=== PATIENT | male | born 1975 | race Caucasian/White ===

== ENCOUNTER 2017-07-24 10:24 | Emergency (ER) | payer MEDICAID ==
[~2017-07-24] VITALS: Ht 175.3 cm; Wt 106.6 kg
[~2017-07-24 10:24] MED LIST: ALBU8.5H2 INH; CALC625T14 PO; CIPR-225 PO; CYCL10TA9 PO; DICL75TA2 PO; DICY20TA33 PO; FAMO-119 PO; FLUO10CA29 PO; HYDR-3816 PO; HYDR12.56 PO; LISI1TAB10 PO; LORA0.5T PO; METH27TA8 PO; MONT10TA24 PO; NAPR-243 PO; OMEP20CA12 PO; OMG1KC PO; ONDN4T PO; PANT40TA PO; POLY17PO6 PO; Polyethylene Glycol PO; RT-ALBUINH IH; SCR1T1 PO; SUCR1TAB36 PO; Sucralfate PO; TRAM50TA2 PO
[2017-07-24] MEDS ORDERED: LACTATED RINGERS 1,000 ML IV ONE (10:57)
[2017-07-24] MEDS ORDERED: NS IV 1000 ML 1,000 ML IV ONE (10:57)
[2017-07-24] MEDS ORDERED: KETOROLAC 30 MG/ML VIAL IVP ONE (11:00)
[2017-07-24] MEDS ORDERED: FAMOTIDINE 20MG/2ML IV (PEPCID) IV STA (11:03)
--- NOTE | 2017-07-24 11:03 | ED Abdominal Pain ---
General Chief Complaint: Abdominal/GI Problems Stated Complaint: ABD PAIN,FATIGUE,WEAKNESS Source of Information: Patient, Family Exam Limitations: No Limitations (LOKESH GALVEZ) History of Present Illness Time Seen By Provider: 10:53 Initial Comments Patient has ER by private conveyance with chief complaint of 3 days progressively worsening epigastric abdominal pain that is diffuse be radiating. He has no shortness of breath or pain on inspiration nor cough above baseline. He doesn't history of pancreatitis but has not drank in several years. He's had a history of ulcers and had a scope approximate 5 years ago which showed ulcer disease. He had about limit today that was regular, formed without black tarry or bloody appearance. He has no nausea or vomiting. He does have a history of diabetes but is not on insulin. He is not on anything for hypercholesterolemia. He has lost about 100 pounds in the past year he says by taking better care of himself and also admits her past 5 months he has been living on the streets. For his pain he is been using Tylenol as well as hydrocodone which prescribed by his primary care physician which she says has done nothing for it. The patient states he is been on PPIs in the past after the ulcers but was taken off at a year ago by his primary care provider possible interactions with other medications. Patient denies history of abdominal surgeries. (LOKESH GALVEZ) Allergies and Home Medications Allergies Coded Allergies: No Known Drug Allergies (Unverified , 04/05/12) Home Medications Albuterol Sulfate 8.5 Gm Hfa.aer.ad, 2 PUFF IH Q6H PRN for SHORTNESS OF BREATH, (Reported) Calcium Polycarbophil 625 Mg Tablet, 625 MG PO HS, (Reported) Ciprofloxacin HCl 500 Mg Tablet, 500 MG PO BID, #14 Ref 0 Prescribed by: PEDRO SCRUGGS on 07/15/16 1111 Cyclobenzaprine HCl 10 Mg Tablet, 10 MG PO BID, (Reported) Diclofenac Sodium 75 Mg Tablet.dr, 75 MG PO BID, (Reported) Dicyclomine HCl 20 Mg Tablet, 20 MG PO QID PRN for PAIN, #15 Prescribed by: ARCHANA OLIVAREZ on 06/23/16 2122 Famotidine 20 Mg Tablet, 20 MG PO BID, #30 Ref 0 Prescribed by: TANK MASON on 07/24/17 1305 Fluoxetine HCl 10 Mg Capsule, 10 MG PO DAILY, (Reported) Hctz/Lisinopril 1 Tab Tablet, 1 TAB PO DAILY, (Reported) Hydrocodone/Acetaminophen 1 Each Tablet, 1 TAB PO Q6H PRN for PAIN, (Reported) Hyoscyamine Sulfate 0.125 Mg Tab.subl, 0.125 MG SL Q6H PRN for SPASMS, #14 Ref 0 Prescribed by: TANK MASON on 07/24/17 1305 Lorazepam 0.5 Mg Tablet, 0.5 MG PO HS, (Reported) Montelukast Sodium 10 Mg Tablet, 10 MG PO HS, (Reported) [place] 3 Polyunsat Fatty Acids 1,000 Mg Cap, 1,000 MG PO DAILY, (Reported) [place] 3 Polyunsat Fatty Acids 1,000 Mg Cap, 2,000 MG PO HS, (Reported) TAKES 2 (1,000MG) CAPSULES Ondansetron HCl 4 Mg Tab, 4 MG PO Q6H PRN for NAUSEA/VOMITING, #10 Ref 0 Prescribed by: PEDRO SCRUGGS on 07/15/16 1111 Pantoprazole Sodium 40 Mg Tablet.dr, 40 MG PO DAILY, (Reported) Polyethylene Glycol 3350 17 Gm Powd.pack, 17 GM PO DAILY PRN for CONSTIPATION, ( Reported) Sucralfate 1 Gm Tablet, 1 GM PO BID, (Reported) Review of Systems Constitutional: No chills, No diaphoresis EENTM: No Blurred Vision, No Double Vision Respiratory: Denies Cough, Denies Orthopnea Cardiovascular: Denies Chest Pain, Denies Syncope Gastrointestinal: See HPI, Denies Abdomen Distended, Abdominal Pain, Denies Constipated, Denies Diarrhea, Denies Nausea, Denies Poor Appetite, Denies Poor Fluid Intake, Denies Vomiting Genitourinary: Denies Burning, Denies Discharge Musculoskeletal: No back pain, No joint pain Skin: No pruritus, No rash Psychiatric/Neurological: Denies Headache, Denies Numbness, Denies Paresthesia (LOKESH GALVEZ) Past Ggnjfah-Fgkmyl-Azdfdu Hx Patient Social History Alcohol Use: Past History Recreational Drug Use: No Smoking Status: Current Everyday Smoker Type Used: Cigarettes (0.5 ppd) Recent Foreign Travel: No Contact w/Someone Who Travel: No Recent Hopitalizations: No (LOKESH GALVEZ) Immunizations Up To Date Tetanus Booster (TDap): Less than 5yrs PED Vaccines UTD: Yes Date of Pneumonia Vaccine: Jul 05, 2011 Date of Influenza Vaccine: Jun 04, 2011 (LOKESH GALVEZ) Seasonal Allergies Seasonal Allergies: Yes (LOKESH GALVEZ) Respiratory Respiratory Disorders: Asthma, COPD (LOKESH GALVEZ) Cardiovascular Cardiac Disorders: Hypertension (LOKESH GALVEZ) Reproductive System Hx Reproductive Disorders: No Sexually Transmitted Disease: No HIV/AIDS: No (LOKESH GALVEZ) Gastrointestinal Gastrointestinal Disorders: Gastroesophageal Reflux, Pancreatitis (LOKESH GALVEZ) HEENT Loss of Vision: Denies Hearing Impairment: Denies (LOKESH GALVEZ) Psychosocial Behavioral Health Disorders: Anxiety, Depression (LOKESH GALVEZ) Blood Transfusions Adverse Reaction to a Blood Tr: No (LOKESH GALVEZ) Family Medical History Significant Family History: No Pertinent Family Hx Family Medial History: Alzheimer's disease Arthritis Asthma Cataracts Completed stroke Coronary thrombosis Diabetes mellitus Drug abuse Headache disorder Hypertension Myocardial infarction Seizure disorder Severe allergy No Family History of: AIDS Abdominal aortic aneurysm Alejandro's disease Alcoholism Aphasia Cancer of mouth Cardiovascular disease Colon cancer Congenital disease Congenital heart disease Cystic fibrosis Deafness or hearing loss Dementia Dysphasia Fibrocystic disease of breast Gastroenteritis Glaucoma Hypercholesterolemia Infertility Kidney disease Neoplasm Not obtainable due to adoption Osteoporosis Parkinson's disease Prostate cancer Psychosocial problem Respiratory disorder Thyroid disease Tuberculosis Visual disorder (LOKESH GALVEZ) Family Medial History: Alzheimer's disease Arthritis Asthma Cataracts Completed stroke Coronary thrombosis Diabetes mellitus Drug abuse Headache disorder Hypertension Myocardial infarction Seizure disorder Severe allergy No Family History of: AIDS Abdominal aortic aneurysm [place]'s disease Alcoholism Aphasia Cancer of mouth Cardiovascular disease Colon cancer Congenital disease Congenital heart disease Cystic fibrosis Deafness or hearing loss Dementia Dysphasia Fibrocystic disease of breast Gastroenteritis Glaucoma Hypercholesterolemia Infertility Kidney disease Neoplasm Not obtainable due to adoption Osteoporosis Parkinson's disease Prostate cancer Psychosocial problem Respiratory disorder Thyroid disease Tuberculosis Visual disorder (TANK MASON) Physical Exam Vital Signs VS - Last 72 Hours, by Label 07/24/17 07/24/17 10:55 11:42 Temp 97.5 97.5 Pulse 94 Resp 18 B/P (MAP) 125/93 Pulse Ox 98 O2 Delivery Room Air (TANK MASON) Vital Signs Capillary Refill : (LOKESH GALVEZ) General Appearance: WD/WN, mild distress HEENT: PERRL/EOMI, normal ENT inspection, pharynx normal Neck: non-tender, supple, normal inspection Respiratory: chest non-tender, lungs clear, normal breath sounds Cardiovascular: normal peripheral pulses, regular rate, rhythm, no edema Peripheral Pulses: 2+ Radial Pulses (R), 2+ Radial Pulses (L) Gastrointestinal: normal bowel sounds, soft, guarding (epigastric and left upper quadrant.), tenderness (especially epigastric and left upper quadrant but diffusely throughout except for right lower quadrant.) Extremities: no pedal edema, no calf tenderness, normal capillary refill Neurologic/Psychiatric: alert, oriented x 3 Skin: normal color, warm/dry (LOKESH GALVEZ) Progress/Results/Core Measures Results/Orders Lab Results Laboratory Tests Test 07/24/17 11:15 07/24/17 12:38 Range/Units White Blood Count 15.8 H 4.3-11.0 10^3/uL Red Blood Count 6.03 H 4.35-5.85 10^6/uL Hemoglobin 17.3 13.3-17.7 G/DL Hematocrit 51 40-54 % Mean Corpuscular Volume 85 80-99 FL Mean Corpuscular Hemoglobin 29 25-34 PG Mean Corpuscular Hemoglobin Concent 34 32-36 G/DL Red Cell Distribution Width 13.6 10.0-14.5 % Platelet Count 418 H 130-400 10^3/uL Mean Platelet Volume 9.9 7.4-10.4 FL Neutrophils (%) (Auto) 69 42-75 % Lymphocytes (%) (Auto) 23 12-44 % Monocytes (%) (Auto) 7 0-12 % Eosinophils (%) (Auto) 1 0-10 % Basophils (%) (Auto) 0 0-10 % Neutrophils # (Auto) 10.9 H 1.8-7.8 X 10^3 Lymphocytes # (Auto) 3.6 1.0-4.0 X 10^3 Monocytes # (Auto) 1.1 H 0.0-1.0 X 10^3 Eosinophils # (Auto) 0.2 0.0-0.3 10^3/uL Basophils # (Auto) 0.0 0.0-0.1 10^3/uL Neutrophils % (Manual) 70 % Lymphocytes % (Manual) 12 % Monocytes % (Manual) 10 % Eosinophils % (Manual) 1 % Basophils % (Manual) 1 % Reactive Lymphocytes 6 % Blood Morphology Comment NORMAL Sodium Level 137 135-145 MMOL/L Potassium Level 3.9 3.6-5.0 MMOL/L Chloride Level 98 98-107 MMOL/L Carbon Dioxide Level 26 21-32 MMOL/L Anion Gap 13 5-14 MMOL/L Blood Urea Nitrogen 16 7-18 MG/DL Creatinine 0.91 0.60-1.30 MG/DL Estimat Glomerular Filtration Rate > 60 BUN/Creatinine Ratio 18 Glucose Level 106 H 70-105 MG/DL Calcium Level 9.9 8.5-10.1 MG/DL Magnesium Level 1.7 L 1.8-2.4 MG/DL Total Bilirubin 0.4 0.1-1.0 MG/DL Aspartate Amino Transf (AST/SGOT) 20 5-34 U/L Alanine Aminotransferase (ALT/SGPT) 29 0-55 U/L Alkaline Phosphatase 74 40-136 U/L Total Protein 7.9 6.4-8.2 GM/DL Albumin 4.2 3.2-4.5 GM/DL Lipase 16 8-78 U/L Urine Color YELLOW Urine Clarity CLEAR Urine pH 6 5-9 Urine Specific [place] 1.010 L 1.016-1.022 Urine Protein NEGATIVE NEGATIVE Urine Glucose (UA) NEGATIVE NEGATIVE Urine Ketones NEGATIVE NEGATIVE Urine Nitrite NEGATIVE NEGATIVE Urine Bilirubin NEGATIVE NEGATIVE Urine Urobilinogen NORMAL NORMAL MG/DL Urine Leukocyte Esterase NEGATIVE NEGATIVE Urine RBC (Auto) 2+ H NEGATIVE Urine RBC NONE /HPF Urine WBC NONE /HPF Urine Squamous Epithelial Cells RARE /HPF Urine Crystals NONE /LPF Urine Bacteria NEGATIVE /HPF Urine Casts NONE /LPF Urine Mucus SMALL H /LPF Urine Culture Indicated NO Urine Opiates Screen NEGATIVE NEGATIVE Urine Oxycodone Screen NEGATIVE NEGATIVE Urine Methadone Screen NEGATIVE NEGATIVE Urine Propoxyphene Screen NEGATIVE NEGATIVE Urine Barbiturates Screen NEGATIVE NEGATIVE Ur Tricyclic Antidepressants Screen NEGATIVE NEGATIVE Urine Phencyclidine Screen NEGATIVE NEGATIVE Urine Amphetamines Screen NEGATIVE NEGATIVE Urine Methamphetamines Screen NEGATIVE NEGATIVE Urine Benzodiazepines Screen POSITIVE H NEGATIVE Urine Cocaine Screen NEGATIVE NEGATIVE Urine Cannabinoids Screen POSITIVE H NEGATIVE (TANK MASON) Medications Given in ED Current Medications Medications Dose Ordered Sig/Tyler Route Start Time Stop Time Status Last Admin Dose Admin Al Hydrox/Mg Hydrox/Simethicone 30 ml ONCE ONCE PO 07/24/17 11:15 07/24/17 11:16 DC 07/24/17 11:42 30 ML Iohexol 100 ml ONCE ONCE IV 07/24/17 11:15 07/24/17 11:16 DC 07/24/17 11:27 100 ML Ketorolac Tromethamine 15 mg ONCE ONCE IVP 07/24/17 11:00 07/24/17 11:01 DC 07/24/17 11:42 15 MG Lactated Ringer's 1,000 ml @ 0 mls/hr Q0M ONCE IV 07/24/17 10:57 07/24/17 11:01 DC 07/24/17 12:49 0 MLS/HR Lidocaine HCl 15 ml ONCE ONCE PO 07/24/17 11:15 07/24/17 11:16 DC 07/24/17 11:42 15 ML Magnesium Sulfate/ Dextrose 100 ml @ 100 mls/hr ONCE ONCE IV 07/24/17 11:45 07/24/17 12:44 DC 07/24/17 12:50 100 MLS/HR Sodium Chloride 100 ml ONCE ONCE IV 07/24/17 11:15 07/24/17 11:16 DC 07/24/17 11:27 80 ML Sodium Chloride 1,000 ml @ 0 mls/hr Q0M ONCE IV 07/24/17 10:57 07/24/17 11:01 DC 07/24/17 11:42 1,000 MLS/HR (TANK MASON) Vital Signs/I&O Vital Sign - Last 12Hours 07/24/17 07/24/17 10:55 11:42 Temp 97.5 97.5 Pulse 94 Resp 18 B/P (MAP) 125/93 Pulse Ox 98 O2 Delivery Room Air (TANK MASON) Diagnostic Imaging Diagonstic Imaging: CT (with contrast) Plain Films/CT/US/NM/MRI: abdomen, pelvis Reviewed: Reviewed by Me (LOKESH GALVEZ) Diagonstic Imaging: CT (with contrast) Plain Films/CT/US/NM/MRI: abdomen, pelvis Comments FINDINGS: The lung bases appear clear. The liver demonstrate diffuse hepatic steatosis. The gallbladder has no calcified stones. The spleen, the adrenal glands and the pancreas appear unremarkable. Kidneys demonstrate focal hypodensities less than a centimeter in size, too small to accurately characterize. No hydronephrosis. The abdominal aorta is normal in caliber. No para-aortic significantly enlarged lymph node is seen. There is no bowel obstruction. The appendix is not identified. There is a small amount of fat distending the left inguinal canal suggestive of a small indirect inguinal hernia. There is also a tiny fat-containing umbilical hernia. No significant free fluid or fluid collection in the abdomen or pelvis is seen. The osseous structures demonstrate mild degenerative change. IMPRESSION: 1. There are small fat-containing left inguinal and tiny umbilical hernias. 2. Hepatic steatosis. Dictated by: Dictated on workstation # [id number] Reviewed: Reviewed by Me (radiology report reviewed by me) (TANK MASON) Departure Impression Impression: Primary Impression: Abdominal pain Qualified Codes: R10.13 - Epigastric pain Additional Impression: Volume depletion Disposition: HOME, SELF-CARE Condition: Improved Departure-Patient Inst. Decision time for Depature: 13:01 (TANK MASON) Referrals: [facility] [place]) Primary Care Physician PEDRO GARCIA (Family) Primary Care Physician Patient Instructions: Acute Abdomen (Belly Pain), Adult (DC), Dehydration, Adult (DC) Add. Discharge Instructions: All discharge instructions reviewed with patient and/or family. Voiced understanding. Medications as instructed. Continue usual home medications. Clear liquid diet until symptoms improve, then increase diet slowly to a low-fat , bland diet. Avoid spicy foods, fatty foods, carbonated beverages, caffeinated beverages, NSAIDs, aspirin, smoking, secondhand smoke, alcohol, or marijuana use. Do not eat within 2 hours of lying down. Follow-up with [facility] within the next 1-2 days for recheck. Call [facility] today for appointment time. Return to the emergency department for worsened pain, vomiting, vomiting blood, black stools, rectal bleeding, abdominal swelling, fever, or any other concerns. Scripts Hyoscyamine Sulfate (Hyoscyamine Sulfate) 0.125 Mg Tab.subl 0.125 MG SL Q6H Y for SPASMS, #14 TAB 0 Refills Prov: TANK MASON 07/24/17 Famotidine (Pepcid) 20 Mg Tablet 20 MG PO BID, #30 TAB 0 Refills Prov: TANK MASON 07/24/17 Copy Copies To 1: JUANITA BOURGEOIS TITUS J Jul 24, 2017:03 TANK MASON Jul 24, 2017 13:05
[2017-07-24] MEDS ORDERED: ANTACID SUSP 30 ML UDC (MYLANTA) PO ONE (11:15)
[2017-07-24] MEDS ORDERED: LIDOCAINE 2% VISCOUS 15 ML UDC PO ONE (11:15)
[2017-07-24] MEDS ORDERED: NS 100 ML (IVPB) BAG IV ONE (11:15)
[2017-07-24] MEDS ORDERED: IOHEXOL 350 MG/ML 100 ML (OMNIPAQUE 350) VIAL IV ONE (11:15)
[2017-07-24 11:21] LABS: BASOPHILS % (AUTO) 0 % (0-10); EOSINOPHILS # (AUTO) 0.2 10^3/uL (0.0-0.3); EOSINOPHILS % (AUTO) 1 % (0-10); LYMPHOCYTES # (AUTO) 3.6 X 10^3 (1.0-4.0); LYMPHOCYTES % (AUTO) 23 % (12-44); MEAN CORPUSCULAR HEMOGLOBIN 29 PG (25-34); MEAN CORPUSCULAR HGB CONC 34 G/DL (32-36); MEAN CORPUSCULAR VOLUME 85 FL (80-99); MEAN PLATELET VOLUME 9.9 FL (7.4-10.4); MONOCYTES # (AUTO) 1.1 X 10^3 (0.0-1.0); MONOCYTES % (AUTO) 7 % (0-12); NEUTROPHILS # (AUTO) 10.9 X 10^3 (1.8-7.8); NEUTROPHILS % (AUTO) 69 % (42-75); PLATELET COUNT 418 10^3/uL (130-400); RED BLOOD COUNT 6.03 10^6/uL (4.35-5.85); RED CELL DISTRIBUTION WIDTH 13.6 % (10.0-14.5); WHITE BLOOD COUNT 15.8 10^3/uL (4.3-11.0)
[2017-07-24 11:42] LABS: ALANINE AMINOTRANSFERASE 29 U/L (0-55); ALBUMIN 4.2 GM/DL (3.2-4.5); ANION GAP 13 MMOL/L (5-14); ASPARTATE AMINO TRANSFERASE 20 U/L (5-34); BILIRUBIN,TOTAL 0.4 MG/DL (0.1-1.0); BLOOD UREA NITROGEN 16 MG/DL (7-18); BUN/CREATININE RATIO 18; CALCIUM 9.9 MG/DL (8.5-10.1); CARBON DIOXIDE 26 MMOL/L (21-32); CHLORIDE 98 MMOL/L (98-107); CREATININE SERUM 0.91 MG/DL (0.60-1.30); GFR ESTIMATED > 60; GLUCOSE 106 MG/DL (70-105); LIPASE 16 U/L (8-78); MAGNESIUM 1.7 MG/DL (1.8-2.4); POTASSIUM 3.9 MMOL/L (3.6-5.0); SODIUM 137 MMOL/L (135-145); TOTAL PROTEIN 7.9 GM/DL (6.4-8.2)
[2017-07-24] MEDS ORDERED: MAGNESIUM 1 GM/100 ML IVPB 100 ML IV ONE (11:45)
[2017-07-24 11:49] LABS: BASOPHILS % (MANUAL) 1 %; EOSINOPHILS % (MANUAL) 1 %; LYMPHOCYTES % (MANUAL) 12 %; NEUTROPHILS % (MANUAL) 70 %; REACTIVE LYMPHOCYTES 6 %
--- OUTSIDE RECORDS SUMMARY | 2017-07-24 12:09 | XMS REPORT ---
Author Author PEDRO GARCIA Organization [facility] Address [address] [place] [address] Care Team Providers Care Software Engineer Web Services Name Role Phone PEDRO GARCIA Unavailable PROBLEMS Type Condition ICD9-CM Code [id number] Code Onset Dates Condition Status SNOMED Code Problem Unspecified episodic mood disorder 296.90 Active 533409748 Problem Family history of diabetes mellitus V18.0 Active 082366318 Problem Pain in joint, lower leg 719.46 Active 219235479 Problem Type 2 diabetes mellitus with diabetic polyneuropathy E11.42 Active 12663845 Problem Type 2 diabetes mellitus with hyperglycemia E11.65 Active 665923884225057 Problem Family history of other cardiovascular diseases V17.49 Active 552263148 Problem Unspecified gastritis and gastroduodenitis without mention of hemorrhage 535.50 Active 145045154 Problem Asthma, unspecified, unspecified status 493.90 Active 13682245 Problem Lumbago 724.2 Active 235220793 Problem Other seborrheic keratosis 702.19 Active 160067047 Problem Essential hypertension, benign 401.1 Active 4748588 Assessment Type 2 diabetes mellitus with hyperglycemia E11.65 May, Active 750808279474105 Problem Hematuria, unspecified 599.70 Active 45716184 Problem Other and unspecified bipolar disorders 296.89 Active 47477701 Problem Abdominal pain, generalized 789.07 Active 946380393 ALLERGIES Unknown Allergies SOCIAL HISTORY No smoking Hx information available PLAN OF CARE VITAL SIGNS MEDICATIONS Medication Instructions Dosage Frequency Start Date End Date Duration Status True Metrix Meter glucometer test blood sugar 12h May, Active True Metrix Blood Glucose Test - In Vitro 2 times a day as directed 12h May, Active RESULTS No Results PROCEDURES No Known procedures IMMUNIZATIONS No Known Immunizations
--- OUTSIDE RECORDS SUMMARY | 2017-07-24 12:09 | XMS REPORT ---
Author Author PEDRO GARCIA Organization [facility] Address [address] [place] [address] Care Team Providers Care Lastex Operator Name Role Phone PEDRO GARCIA Unavailable PROBLEMS Type Condition ICD9-CM Code [id number] Code Onset Dates Condition Status SNOMED Code Problem Mood disorder F39 Active 35826667 Problem Anxiety disorder, unspecified F41.9 Active 996709118 Problem Other chronic pain G89.29 Active 46473617 Problem Type 2 diabetes mellitus with hyperglycemia E11.65 Active 061972576018994 Problem Type 2 diabetes mellitus with diabetic polyneuropathy E11.42 Active 18003266 Problem Uncontrolled type 2 diabetes mellitus without complication, without long-term current use of insulin E11.65 Active 466366160 Problem Diabetic polyneuropathy associated with type 2 diabetes mellitus E11.42 Active 45250945 Problem 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 Active 590027579 Problem Chronic obstructive pulmonary disease, unspecified COPD type J44.9 Active 43017953 Problem Anxiety F41.9 Active 95205739 Problem Social phobia F40.10 Active 08138444 Problem Major depression, melancholic type F32.9 Active 826728540 ALLERGIES No Known Allergies SOCIAL HISTORY Never Assessed PLAN OF CARE VITAL SIGNS Height 72 in 2016-11-18 Weight 307.7 lbs 2016-11-18 Temperature 97.2 degrees Fahrenheit 2016-11-18 Heart Rate 94 bpm 2016-11-18 Respiratory Rate 20 2016-11-18 BMI 41.73 kg/m2 2016-11-18 Blood pressure systolic 138 mmHg 2016-11-18 Blood pressure diastolic 82 mmHg 2016-11-18 MEDICATIONS Medication Instructions Dosage Frequency Start Date End Date Duration Status True Metrix Meter glucometer test blood sugar 12h 15 May, 2016 Active Diclofenac Sodium 75 MG Orally Twice a day 1 tablet 12h 90 Active Prozac 40 MG Orally Once a day 1 capsule 24h 30 Active Metformin HCl 1000 MG Orally Twice a day 1 tablet with meals 12h 23 Feb, 2016 90 days Active HydrOXYzine HCl 25 MG Orally every 8 hrs 1 tablet as needed 8h 26 Sep, 2016 30 day(s) Active Albuterol Sulfate 90 mcg/actuation inhale 2 puffs 6h Jun, Active Neurontin 800 MG Orally Three times a day 1 capsule 8h 90 Active Voca 7.5-325 MG Orally 3 times a day 1 tablet as needed 8h 08 Nov, 2016 Active Singulair 10 mg Orally Once a day 1 tablet at bedtime 24h 90 Active Protonix 40 mg Orally Once a day 1 tablet 24h 90 Active Promethazine HCl 25 MG Orally 3 times a day PRN 1 tablet as needed 10 Active Cyclobenzaprine HCl 10 mg Orally 2 times a day 1 tablet 12h 30 Active True Metrix Blood Glucose Test - In Vitro 2 times a day test blood sugar 12h May, 90 days Active Zofran 8 MG Orally 3 times a day 1 tablet 8h 17 Nov, 2016 Active Accu-Chek Susan 1 In Vitro 2 times a day test blood sugar 12h Mar, Active Xanax 1 MG Orally 2 times a day 1 tablet 12h 15 Apr, 2016 28 days Active Lisinopril-Hydrochlorothiazide 20-25 MG 1 tablet 24h 90 Active GlipiZIDE 5 mg Orally 2 times a day 1 tablet 12h 30 Active RESULTS No Results PROCEDURES No Known procedures IMMUNIZATIONS No Known Immunizations MEDICAL (GENERAL) HISTORY Type Description Date Medical History hypertension Medical History asthma Medical History depression and mood disorder Medical History chronic back pain Surgical History angiogram(heart cath) 01/2016 Hospitalization History pancreatitis 2013 Hospitalization History ER visit for abdominal crampintg 08/2015
--- OUTSIDE RECORDS SUMMARY | 2017-07-24 12:09 | XMS REPORT ---
Author PEDRO Zarco [facility] eClinical[employer] Address Unknown Phone Unavailable Care Team Providers Care Earth Burner Name Role Phone PEDRO GARCIA CP Unavailable Allergies, Adverse Reactions, Alerts Substance Reaction Event Type N.K.D.A. Info Not Available Non Drug Allergy Problems Problem Type Condition Code Onset Dates Condition Status Problem Abdominal pain, generalized 789.07 Active Problem Pain in joint, lower leg 719.46 Active Problem Unspecified episodic mood disorder 296.90 Active Problem Type 2 diabetes mellitus with hyperglycemia E11.65 Active Problem Asthma, unspecified, unspecified status 493.90 Active Problem Type 2 diabetes mellitus with diabetic polyneuropathy E11.42 Active Problem Unspecified gastritis and gastroduodenitis without mention of hemorrhage 535.50 Active Problem Family history of diabetes mellitus V18.0 Active Problem Lumbago 724.2 Active Problem Family history of other cardiovascular diseases V17.49 Active Problem Other and unspecified bipolar disorders 296.89 Active Problem Other seborrheic keratosis 702.19 Active Problem Essential hypertension, benign 401.1 Active Assessment Seizures R56.9 Active Problem Hematuria, unspecified 599.70 Active Medications Medication Code System Code Instructions Start Date End Date Status Dosage Neurontin [facility] [address]-56 800 MG Orally Three times a day 1 capsule Albuterol Sulfate [facility] [address]-47 90 mcg/actuation every 6 hrs Jun 04, 2014 inhale 2 puffs Diclofenac Sodium [facility] 01203750522 75 MG Orally Twice a day 1 tablet Accu-Chek Susan NDC 0 1 In Vitro 2 times a day March 24, 2016 test blood sugar [place] [facility] [address]-52 7.5-325 MG Orally 3 times a day November 28, 2014 1 tablet as needed Xanax [facility] [address]-77 1 MG Orally 2 times a day Apr 18, 2016 1 tablet True Metrix Meter NDC 0 glucometer 2 times a day May 19, 2016 test blood sugar Protonix [facility] [address]-87 40 mg Orally Once a day 1 tablet Promethazine HCl [facility] 18190012624 25 MG Orally 3 times a day PRN 1 tablet as needed Metformin HCl [facility] [address]-96 1000 MG Orally Twice a day February 25, 2016 1 tablet with meals Singulair [facility] [address]-37 10 mg Orally Once a day 1 tablet at bedtime MiraLax [facility] [address]-84 17 gm/dose Orally Once a day Aug 19, 2015 1 capful mixed with 8 ounces of fluid Lisinopril-Hydrochlorothiazide [facility] 66854442090 20-25 MG Once a day 1 tablet True Metrix Blood Glucose Test [facility] 8528-789191 - In Vitro 2 times a day May 19, 2016 as directed Cyclobenzaprine HCl [facility] [address]-51 10 mg Orally 2 times a day 1 tablet Prozac [facility] [address]-88 20 MG Orally Once a day 1 capsule Procedures Procedure Coding System Code Date Office Visit, Est Pt., Level 3 CPT-4 50956 Jun 03, 2016 Vital Signs Date/Time: Jun 03, 2016 Cardiac Monitoring Heart Rate 100 bpm Weight 319.3 lbs Height 72 in BMI 43.30 Index Blood Pressure Diastolic 78 mmHg Blood Pressure Systolic 120 mmHg Results No Known Results Summary Purpose eClinicalWorks Submission
--- OUTSIDE RECORDS SUMMARY | 2017-07-24 12:09 | XMS REPORT ---
Author Author JOHN CROCKER Organization [facility] Address [address] [place] [address] Care Team Providers Care General Manager Land Department Name Role Phone SELVIN CROCKERNETTE Unavailable PROBLEMS Type Condition ICD9-CM Code AYN15-MG Code Onset Dates Condition Status SNOMED Code Problem Mood disorder F39 Active 59643605 Problem Anxiety disorder, unspecified F41.9 Active 116176169 Problem Other chronic pain G89.29 Active 99904457 Problem Type 2 diabetes mellitus with hyperglycemia E11.65 Active 940153433585276 Problem Type 2 diabetes mellitus with diabetic polyneuropathy E11.42 Active 94368719 Problem Uncontrolled type 2 diabetes mellitus without complication, without long-term current use of insulin E11.65 Active 920080058 Problem Diabetic polyneuropathy associated with type 2 diabetes mellitus E11.42 Active 84833959 Problem 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 Active 966052143 Problem Chronic obstructive pulmonary disease, unspecified COPD type J44.9 Active 64797830 Problem Anxiety F41.9 Active 78738684 Problem Social phobia F40.10 Active 10250788 Problem Major depression, melancholic type F32.9 Active 830368465 ALLERGIES No Information SOCIAL HISTORY Never Assessed PLAN OF CARE VITAL SIGNS MEDICATIONS Medication Instructions Dosage Frequency Start Date End Date Duration Status [place] 7.5-325 MG Orally 3 times a day 1 tablet as needed 8h January, 28 days Active RESULTS No Results PROCEDURES No Known procedures IMMUNIZATIONS No Known Immunizations MEDICAL (GENERAL) HISTORY Type Description Date Medical History hypertension Medical History asthma Medical History depression and mood disorder Medical History chronic back pain Surgical History angiogram(heart cath) 01/2016 Hospitalization History pancreatitis 2013 Hospitalization History ER visit for abdominal crampintg 08/2015
--- OUTSIDE RECORDS SUMMARY | 2017-07-24 12:09 | XMS REPORT ---
Author Author PEDRO GARCIA [facility] eClinical[employer] Address Unknown Phone Unavailable Care Team Providers Care Sales Route Driver Name Role Phone PEDRO GARCIA CP Unavailable Allergies No Known Allergies Problems Problem Type Condition Code Onset Dates Condition Status Problem Essential hypertension, benign 401.1 Active Problem Abdominal pain, generalized 789.07 Active Problem Hematuria, unspecified 599.70 Active Problem Other and unspecified bipolar disorders 296.89 Active Problem Other seborrheic keratosis 702.19 Active Problem Lumbago 724.2 Active Problem Family history of other cardiovascular diseases V17.49 Active Problem Asthma, unspecified, unspecified status 493.90 Active Problem Pain in joint, lower leg 719.46 Active Problem Unspecified episodic mood disorder 296.90 Active Problem Unspecified gastritis and gastroduodenitis without mention of hemorrhage 535.50 Active Problem Family history of diabetes mellitus V18.0 Active Medications Medication Code System Code Instructions Start Date End Date Status Dosage [facility] [address]-01 7.5-325 MG Orally November 28, 2014 take 1 tablet by Oral route 2 times per day as needed for pain prn Results No Known Results Summary Purpose eClinicalWorks Submission
--- OUTSIDE RECORDS SUMMARY | 2017-07-24 12:10 | XMS REPORT ---
Author Author PEDRO GARCIA Organization [facility] Address [address] [place] [address] Care Team Providers Care Senior Analysis Specialist Name Role Phone RADHAPEDRO Unavailable PROBLEMS Type Condition ICD9-CM Code XGF97-OL Code Onset Dates Condition Status SNOMED Code Problem Mood disorder F39 Active 58275277 Problem Anxiety disorder, unspecified F41.9 Active 639502384 Problem Other chronic pain G89.29 Active 85546329 Problem Type 2 diabetes mellitus with hyperglycemia E11.65 Active 117686898869363 Problem Type 2 diabetes mellitus with diabetic polyneuropathy E11.42 Active 97155720 Problem Uncontrolled type 2 diabetes mellitus without complication, without long-term current use of insulin E11.65 Active 555856357 Problem Diabetic polyneuropathy associated with type 2 diabetes mellitus E11.42 Active 51180184 Problem 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 Active 565408334 Problem Chronic obstructive pulmonary disease, unspecified COPD type J44.9 Active 15505074 Problem Anxiety F41.9 Active 63548354 Problem Social phobia F40.10 Active 57425568 Problem Major depression, melancholic type F32.9 Active 932913958 ALLERGIES No Information SOCIAL HISTORY Never Assessed PLAN OF CARE VITAL SIGNS MEDICATIONS Medication Instructions Dosage Frequency Start Date End Date Duration Status True Metrix Blood Glucose Test - In Vitro 2 times a day as directed 12 15 May, 2016 90 days Active RESULTS No Results PROCEDURES No Known procedures IMMUNIZATIONS No Known Immunizations MEDICAL (GENERAL) HISTORY Type Description Date Medical History hypertension Medical History asthma Medical History depression and mood disorder Medical History chronic back pain Surgical History angiogram(heart cath) 01/2016 Hospitalization History pancreatitis 2013 Hospitalization History ER visit for abdominal crampintg 08/2015
--- OUTSIDE RECORDS SUMMARY | 2017-07-24 12:10 | XMS REPORT ---
Author Author PEDRO GARCIA Organization [employer] Address Unknown Phone Unavailable Care Team Providers Care Cra Officer Name Role Phone PEDRO GARCIA CP Unavailable Allergies No Known Allergies Problems Problem Type Condition ICD-9 Code Onset Dates Condition Status Problem Essential hypertension, benign 401.1 Active Problem Abdominal pain, generalized 789.07 Active Problem Hematuria, unspecified 599.70 Active Problem Lumbago 724.2 Active Problem Family history of other cardiovascular diseases V17.49 Active Problem Asthma, unspecified, unspecified status 493.90 Active Problem Pain in joint, lower leg 719.46 Active Problem Unspecified episodic mood disorder 296.90 Active Problem Unspecified gastritis and gastroduodenitis without mention of hemorrhage 535.50 Active Problem Family history of diabetes mellitus V18.0 Active Assessment Anxiety 300.00 Active Problem Other and unspecified bipolar disorders 296.89 Active Problem Other seborrheic keratosis 702.19 Active Medications Medication Code System Code Instructions Start Date End Date Status Dosage Lorazepam [facility] [address]-16 0.5 MG Orally Once a day Apr 08, 2015 1 tablet as needed Results No Known Results Summary Purpose eClinicalWorks Submission
--- OUTSIDE RECORDS SUMMARY | 2017-07-24 12:10 | XMS REPORT ---
Author Author PEDRO GARCIA [facility] eClinicalWorks Address Unknown Phone Unavailable Care Team Providers Care Medical Equipment Sales Name Role Phone PEDRO GARCIA CP Unavailable [...] Instructions Start Date End Date Status Dosage [facility] [address]-68 7.5-325 MG Orally November 28, 2014 take 1 tablet by Oral route 2 times per day as needed for pain prn Results No Known Results Summary Purpose eClinicalWorks Submission
--- OUTSIDE RECORDS SUMMARY | 2017-07-24 12:10 | XMS REPORT ---
Author Author PEDRO GARCIA Organization [facility] Address [address] [place] [address] Care Team Providers Care Test Engineering Manager Name Role Phone PEDRO GARCIA Unavailable PROBLEMS Type Condition ICD9-CM Code XDV63-WE Code Onset Dates Condition Status SNOMED Code Problem Mood disorder F39 Active 46466822 Problem Anxiety disorder, unspecified F41.9 Active 664340335 Problem Other chronic pain G89.29 Active 84931656 Problem Type 2 diabetes mellitus with hyperglycemia E11.65 Active 797850147778191 Problem Type 2 diabetes mellitus with diabetic polyneuropathy E11.42 Active 39252544 Problem Uncontrolled type 2 diabetes mellitus without complication, without long-term current use of insulin E11.65 Active 428679808 Problem Diabetic polyneuropathy associated with type 2 diabetes mellitus E11.42 Active 72114604 Problem 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
--- OUTSIDE RECORDS SUMMARY | 2017-07-24 12:10 | XMS REPORT ---
Author Author PEDRO GARCIA Organization [employer] Address Unknown Phone Unavailable Care Team Providers Care Party Plan Demonstrator Name Role Phone PEDRO GARCIA CP Unavailable [...] history of diabetes mellitus V18.0 Active Medications No Known Medications Results No Known Results Summary Purpose eClinicalWorks Submission
--- OUTSIDE RECORDS SUMMARY | 2017-07-24 12:10 | XMS REPORT ---
Author PEDRO Zarco [facility] eClinicalWorks Address Unknown Phone Unavailable Care Team Providers Care Records Supervisor Name Role Phone PEDRO GARCIA CP Unavailable [...] Active Problem Other seborrheic keratosis 702.19 Active Assessment Type 2 diabetes mellitus with hyperglycemia E11.65 Active Problem Essential hypertension, benign 401.1 Active Assessment Type 2 diabetes mellitus with diabetic polyneuropathy E11.42 Active Problem Hematuria, unspecified 599.70 Active Medications Medication Code System Code Instructions Start Date End Date Status Dosage Prozac [facility] [address]-72 10 mg Orally Once a day 1 capsule Albuterol Sulfate [facility] [address]-18 90 mcg/actuation every 6 hrs Jun 04, 2014 inhale 2 puffs Promethazine HCl [facility] 99493930449 25 MG Orally 3 times a day PRN 1 tablet as needed Breo Ellipta [facility] [address]-13 100-25 MCG/INH Inhalation Once a day March 1 puff Lorazepam [facility] [address]-06 0.5 MG Orally Once a day Apr 08, 2015 1 tablet as needed Lisinopril-Hydrochlorothiazide [facility] 31598733500 20-25 MG Once a day 1 tablet Protonix [facility] [address]-90 40 mg Orally Once a day 1 tablet Diclofenac Sodium [facility] 34193714860 75 MG Orally Twice a day 1 tablet Neurontin [facility] [address]-34 100 MG Orally Three times a day March 04, 2016 1 capsule Sucralfate [facility] 00729378333 1 GM TAKE ONE TABELT BY MOUTH BEFORE MEALS AND AT BEDTIME MiraLax [facility] [address]-40 17 gm/dose Orally Once a day Aug 19, 2015 1 capful mixed with 8 ounces of fluid Zofran [facility] [address]-18 8 MG Orally Once a day 1 tablet [place] [facility] [address]-35 7.5-325 MG Orally 3 times a day November 28, 2014 1 tablet as needed Singulair [facility] [address]-15 10 mg Orally Once a day 1 tablet at bedtime Cyclobenzaprine HCl [facility] [address]-14 10 mg Orally 2 times a day 1 tablet Metformin HCl [facility] [address]-71 1000 MG Orally Twice a day February 25, 2016 1 tablet with meals Accu-Chek Susan [facility] 0 1 In Vitro 3 times a day, with lancets March 24, 2016 test blood sugar Procedures Procedure Coding System Code Date Office Visit, Est Pt., Level 3 CPT-4 20523 March 24, 2016 Vital Signs Date/Time: March 24, 2016 Cardiac Monitoring Heart Rate 88 bpm Weight 317 lbs Height 72 in Blood Pressure Diastolic 72 mmHg Blood Pressure Systolic 140 mmHg Results No Known Results Summary Purpose eClinicalWorks Submission
--- OUTSIDE RECORDS SUMMARY | 2017-07-24 12:10 | XMS REPORT ---
Author PEDRO Zarco [facility] eClinicalWorks Address Unknown Phone Unavailable Care Team Providers Care Charge Hand Name Role Phone PEDRO GARCIA CP Unavailable [...] Problem Other seborrheic keratosis 702.19 Active Assessment Anxiety F41.9 Active Problem Essential hypertension, benign 401.1 Active Assessment Diabetic polyneuropathy associated with type 2 diabetes mellitus E11.42 Active Problem Hematuria, unspecified 599.70 Active Medications Medication Code System Code Instructions Start Date End Date Status Dosage Albuterol Sulfate [facility] [address]-53 90 mcg/actuation every 6 hrs Jun 04, 2014 inhale 2 puffs Sucralfate [facility] 95060394180 1 GM TAKE ONE TABELT BY MOUTH BEFORE MEALS AND AT BEDTIME Prozac [facility] [address]-30 20 MG Orally Once a day 1 capsule Metformin HCl [facility] [address]-26 1000 MG Orally Twice a day February 25, 2016 1 tablet with meals Diclofenac Sodium [facility] 77506094759 75 MG Orally Twice a day 1 tablet Cyclobenzaprine HCl [facility] [address]-80 10 mg Orally 2 times a day 1 tablet Lisinopril-Hydrochlorothiazide [facility] 10533684822 20-25 MG Once a day 1 tablet Prozac [facility] [address]-90 10 mg Orally Once a day 1 capsule Breo Ellipta [facility] [address]-96 100-25 MCG/INH Inhalation Once a day March 1 puff Accu-Chek Susan [facility] 0 1 In Vitro 3 times a day, with lancets March 24, 2016 test blood sugar Xanax [facility] [address]-40 0.5 MG Orally 2 times a day Apr 18, 2016 1 tablet MiraLax [facility] [address]-88 17 gm/dose Orally Once a day Aug 19, 2015 1 capful mixed with 8 ounces of fluid Zofran [facility] [address]-95 8 MG Orally Once a day 1 tablet Protonix [facility] [address]-66 40 mg Orally Once a day 1 tablet [place] [facility] [address]-60 7.5-325 MG Orally 3 times a day November 28, 2014 1 tablet as needed Neurontin [facility] [address]-02 300 MG Orally Three times a day 1 capsule Promethazine HCl [facility] 85045401060 25 MG Orally 3 times a day PRN 1 tablet as needed Singulair [facility] [address]-16 10 mg Orally Once a day 1 tablet at bedtime Procedures Procedure Coding System Code Date Office Visit, Est Pt., Level 3 CPT-4 36503 Apr 18, 2016 Vital Signs Date/Time: Apr 18, 2016 Cardiac Monitoring Heart Rate 96 bpm Weight 314.4 lbs Height 72 in BMI 42.64 Index Blood Pressure Diastolic 94 mmHg Blood Pressure Systolic 130 mmHg Results No Known Results Summary Purpose eClinicalWorks Submission
--- OUTSIDE RECORDS SUMMARY | 2017-07-24 12:10 | XMS REPORT ---
Author Author PEDRO GARCIA Organization [facility] Address [address] [place] [address] Care Team Providers Care Supervisor Audit Clerks Name Role Phone PEDRO GARCIA Unavailable PROBLEMS Type Condition ICD9-CM Code WGI61-NB Code Onset Dates Condition Status SNOMED Code Problem Mood disorder F39 Active 32928739 Problem Anxiety disorder, unspecified F41.9 Active 570288345 Problem Other chronic pain G89.29 Active 59858224 Problem Type 2 diabetes mellitus with hyperglycemia E11.65 Active 777523266384966 Problem Type 2 diabetes mellitus with diabetic polyneuropathy E11.42 Active 82233175 Problem Uncontrolled type 2 diabetes mellitus without complication, without long-term current use of insulin E11.65 Active 717975807 Problem Diabetic polyneuropathy associated with type 2 diabetes mellitus E11.42 Active 82479886 Problem 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 Active 588748480 Problem Chronic obstructive pulmonary disease, unspecified COPD type J44.9 Active 54967402 Problem Anxiety F41.9 Active 45353438 Problem Social phobia F40.10 Active 22644329 Problem Major depression, melancholic type F32.9 Active 915876780 ALLERGIES No Information SOCIAL HISTORY Never Assessed PLAN OF CARE VITAL SIGNS MEDICATIONS Medication Instructions Dosage Frequency Start Date End Date Duration Status Xanax 1 MG Orally 2 times a day 1 tablet 12h 15 Apr, 2016 28 days Active RESULTS No Results PROCEDURES No Known procedures IMMUNIZATIONS No Known Immunizations MEDICAL (GENERAL) HISTORY Type Description Date Medical History hypertension Medical History asthma Medical History depression and mood disorder Medical History chronic back pain Surgical History angiogram(heart cath) 01/2016 Hospitalization History pancreatitis 2013 Hospitalization History ER visit for abdominal crampintg 08/2015
--- OUTSIDE RECORDS SUMMARY | 2017-07-24 12:10 | XMS REPORT ---
Author Author PEDRO GARCIA Organization [employer] Address Unknown Phone Unavailable Care Team Providers Care Servomechanism Assembler Name Role Phone PEDRO GARCIA CP Unavailable [...]
--- OUTSIDE RECORDS SUMMARY | 2017-07-24 12:10 | XMS REPORT ---
Author Author PEDRO GARCIA [facility] eClinicalWorks Address Unknown Phone Unavailable Care Team Providers Care Radar Mechanic Name Role Phone PEDRO GARCIA CP Unavailable [...] Start Date End Date Status Dosage [facility] [address]-08 7.5-325 MG Orally 3 times a day November 28, 2014 1 tablet as needed Results No Known Results Summary Purpose eClinicalWorks Submission
--- OUTSIDE RECORDS SUMMARY | 2017-07-24 12:11 | XMS REPORT ---
Author Author PEDRO GARCIA Organization [facility] Address [address] [place] [address] Care Team Providers Care Python Consultant Name Role Phone PEDRO GARCIA Unavailable PROBLEMS Type Condition ICD9-CM Code QZO92-SC Code Onset Dates Condition Status SNOMED Code Problem Mood disorder F39 Active 76518749 Problem Anxiety disorder, unspecified F41.9 Active 546031364 Problem Other chronic pain G89.29 Active 33432352 Problem Type 2 diabetes mellitus with hyperglycemia E11.65 Active 821300401235782 Problem Type 2 diabetes mellitus with diabetic polyneuropathy E11.42 Active 40543673 Problem Uncontrolled type 2 diabetes mellitus without complication, without long-term current use of insulin E11.65 Active 954882003 Problem Diabetic polyneuropathy associated with type 2 diabetes mellitus E11.42 Active 80234037 Problem 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 Active 945530340 Problem Chronic obstructive pulmonary disease, unspecified COPD type J44.9 Active 25980045 Problem Anxiety F41.9 Active 41776814 Problem Social phobia F40.10 Active 75671728 Problem Major depression, melancholic type F32.9 Active 061641529 ALLERGIES No Known Allergies SOCIAL HISTORY Never Assessed PLAN OF CARE Activity Details Follow Up 4 Weeks Reason:mood disorder VITAL SIGNS Height 72 in 2017-02-02 Weight 334.0 lbs 2017-02-02 Temperature 97.6 degrees Fahrenheit 2017-02-02 Heart Rate 104 bpm 2017-02-02 Respiratory Rate 24 2017-02-02 BMI 45.29 kg/m2 2017-02-02 Blood pressure systolic 129 mmHg 2017-02-02 Blood pressure diastolic 72 mmHg 2017-02-02 MEDICATIONS Medication Instructions Dosage Frequency Start Date End Date Duration Status Albuterol Sulfate 90 mcg/actuation inhale 2 puffs 6h Jun, Active Metformin HCl 1000 MG Orally Twice a day 1 tablet with meals 12h 90 Active True Metrix Meter glucometer test blood sugar 12h 15 May, 2016 Active Lisinopril-Hydrochlorothiazide 20-25 MG 1 tablet 24h 90 Active Dulera 200-5 MCG/ACT Inhalation Twice a day 2 puffs 12h Feb, Active Accu-Chek Susan 1 In Vitro 2 times a day test blood sugar 12h Mar, Active Diclofenac Sodium 75 MG Orally Twice a day 1 tablet 12h 90 Active Protonix 40 mg Orally Once a day 1 tablet 24h 90 Active Pregabalin 75 MG Orally Twice a day 1 capsule 12h Dec, 30 days Active Keflex 500 mg Orally 4 times a day 1 capsule 6h Feb, Feb, 10 day(s) Active True Metrix Blood Glucose Test - In Vitro 2 times a day test blood sugar 12h May, 90 days Active GlipiZIDE 5 mg Orally 2 times a day 1 tablet 12h 30 Active Xanax 1 MG Orally 2 times a day 1 tablet 12h Apr, 23 days Active Prozac 40 MG Orally Once a day 1 capsule 24h 30 days Active Prozac 10 mg Orally Once a day, add to 40 mg 1 capsule in the morning Feb, Active Conesus 7.5-325 MG Orally 3 times a day 1 tablet as needed 8h January, 28 days Active HydrOXYzine HCl 25 MG Orally every 8 hrs 1 tablet as needed 8h 30 Active Singulair 10 mg Orally Once a day 1 tablet at bedtime 24h 90 Active Cyclobenzaprine HCl 10 mg Orally 2 times a day 1 tablet 12h 30 Active Neurontin 800 MG Orally Three times a day 1 capsule 8h Active RESULTS Name Result Date Reference Range A1C (IN HOUSE) 2017-02-02 A1C IN HOUSE 5.8 4.3 - 5.6 % Previous A1c 6.2 Lot [id number] Exp date PROCEDURES Procedure Date Ordered Result Body Site GLYCATED HEMOGLOBIN TEST February 02, 2017 IMMUNIZATIONS No Known Immunizations MEDICAL (GENERAL) HISTORY Type Description Date Medical History hypertension Medical History asthma Medical History depression and mood disorder Medical History chronic back pain Surgical History angiogram(heart cath) 01/2016 Hospitalization History pancreatitis 2013 Hospitalization History ER visit for abdominal crampintg 08/2015
--- OUTSIDE RECORDS SUMMARY | 2017-07-24 12:11 | XMS REPORT ---
Author Author PEDRO GARCIA Organization [facility] Address [address] [place] [address] Care Team Providers Care Ornamental Metalwork Designer Name Role Phone PEDRO GARCIA Unavailable PROBLEMS Type Condition ICD9-CM Code BGR44-XA Code Onset Dates Condition Status SNOMED Code Problem Mood disorder F39 Active 79899533 Problem Anxiety disorder, unspecified F41.9 Active 628633022 Problem Other chronic pain G89.29 Active 83630394 Problem Type 2 diabetes mellitus with hyperglycemia E11.65 Active 045716893429851 Problem Type 2 diabetes mellitus with diabetic polyneuropathy E11.42 Active 92042830 Problem Uncontrolled type 2 diabetes mellitus without complication, without long-term current use of insulin E11.65 Active 072858420 Problem Diabetic polyneuropathy associated with type 2 diabetes mellitus E11.42 Active 99005956 Problem 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 Active 671670487 Problem Chronic obstructive pulmonary disease, unspecified COPD type J44.9 Active 57683724 Problem Anxiety F41.9 Active 62486870 Problem Social phobia F40.10 Active 30439512 Problem Major depression, melancholic type F32.9 Active 939517920 ALLERGIES No Information SOCIAL HISTORY Never Assessed PLAN OF CARE VITAL SIGNS MEDICATIONS Medication Instructions Dosage Frequency Start Date End Date Duration Status Xanax 1 MG Orally 2 times a day 1 tablet 12h 15 Apr, 2016 28 days Active [place] 7.5-325 MG Orally 3 times a day 1 tablet as needed 8h 2016 28 days Active RESULTS No Results PROCEDURES No Known procedures IMMUNIZATIONS No Known Immunizations MEDICAL (GENERAL) HISTORY Type Description Date Medical History hypertension Medical History asthma Medical History depression and mood disorder Medical History chronic back pain Surgical History angiogram(heart cath) 01/2016 Hospitalization History pancreatitis 2013 Hospitalization History ER visit for abdominal crampintg 08/2015
--- OUTSIDE RECORDS SUMMARY | 2017-07-24 12:11 | XMS REPORT ---
Author Author PEDRO GARCIA Organization [facility] Address [address] [place] [address] Care Team Providers Care Still Pump Operator Name Role Phone PEDRO GARCIA Unavailable PROBLEMS Type Condition ICD9-CM Code RVF22-DX Code Onset Dates Condition Status SNOMED Code Problem Mood disorder F39 Active 18879894 Problem Anxiety disorder, unspecified F41.9 Active 890748904 Problem Other chronic pain G89.29 Active 10205187 Problem Type 2 diabetes mellitus with hyperglycemia E11.65 Active 687494991654193 Problem Type 2 diabetes mellitus with diabetic polyneuropathy E11.42 Active 16764527 Problem Uncontrolled type 2 diabetes mellitus without complication, without long-term current use of insulin E11.65 Active 067765279 Problem Diabetic polyneuropathy associated with type 2 diabetes mellitus E11.42 Active 99108439 Problem 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 Active 010066163 Problem Chronic obstructive pulmonary disease, unspecified COPD type J44.9 Active 44550732 Problem Anxiety F41.9 Active 66992642 Problem Social phobia F40.10 Active 83569465 Problem Major depression, melancholic type F32.9 Active 409023475 ALLERGIES No Information SOCIAL HISTORY Never Assessed PLAN OF CARE VITAL SIGNS MEDICATIONS Medication Instructions Dosage Frequency Start Date End Date Duration Status Xanax 1 MG Orally 2 times a day 1 tablet 12h 15 Apr, 2016 23 days Active RESULTS No Results PROCEDURES No Known procedures IMMUNIZATIONS No Known Immunizations MEDICAL (GENERAL) HISTORY Type Description Date Medical History hypertension Medical History asthma Medical History depression and mood disorder Medical History chronic back pain Surgical History angiogram(heart cath) 01/2016 Hospitalization History pancreatitis 2013 Hospitalization History ER visit for abdominal crampintg 08/2015
--- OUTSIDE RECORDS SUMMARY | 2017-07-24 12:11 | XMS REPORT ---
Author Author PEDRO GARCIA Organization [employer] Address Unknown Phone Unavailable Care Team Providers Care Spd Tech Name Role Phone PEDRO GARCIA CP Unavailable [...] Active Problem Essential hypertension, benign 401.1 Active Problem Hematuria, unspecified 599.70 Active Medications Medication Code System Code Instructions Start Date End Date Status Dosage [place] [facility] [address]-68 7.5-325 MG Orally 3 times a day November 28, 2014 1 tablet as needed Lorazepam [facility] [address]-42 0.5 MG Orally Once a day Apr 08, 2015 1 tablet as needed Results No Known Results Summary Purpose [employer]ClinicalWorks Submission
--- OUTSIDE RECORDS SUMMARY | 2017-07-24 12:11 | XMS REPORT ---
Author Author EH SANON Organization [facility] Address [address] [place] [address] Care Team Providers Care Pilot Name Role Phone EH SANON Unavailable PROBLEMS Type Condition ICD9-CM Code EUG38-CH Code Onset Dates Condition Status SNOMED Code Problem Mood disorder F39 Active 67585365 Problem Anxiety disorder, unspecified F41.9 Active 933854182 Problem Other chronic pain G89.29 Active 07689820 Problem Type 2 diabetes mellitus with hyperglycemia E11.65 Active 599964701343270 Problem Type 2 diabetes mellitus with diabetic polyneuropathy E11.42 Active 10473722 Problem Uncontrolled type 2 diabetes mellitus without complication, without long-term current use of insulin E11.65 Active 426715444 Problem Diabetic polyneuropathy associated with type 2 diabetes mellitus E11.42 Active 02545477 Problem 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 Active 754123248 Problem Chronic obstructive pulmonary disease, unspecified COPD type J44.9 Active 52784177 Problem Anxiety F41.9 Active 30863786 Problem Social phobia F40.10 Active 67435493 Problem Major depression, melancholic type F32.9 Active 853537186 ALLERGIES No Information SOCIAL HISTORY Never Assessed PLAN OF CARE Activity Details Follow Up 3 Weeks Reason:Depression VITAL SIGNS MEDICATIONS Unknown Medications RESULTS No Results PROCEDURES Procedure Date Ordered Result Body Site Psychotherapy, patient &/family, 30 minutes, established patient February 02, 2017 IMMUNIZATIONS No Known Immunizations MEDICAL (GENERAL) HISTORY Type Description Date Medical History hypertension Medical History asthma Medical History depression and mood disorder Medical History chronic back pain Surgical History angiogram(heart cath) 01/2016 Hospitalization History pancreatitis 2013 Hospitalization History ER visit for abdominal crampintg 08/2015
--- OUTSIDE RECORDS SUMMARY | 2017-07-24 12:11 | XMS REPORT ---
Author Author PEDRO GARCIA Organization [employer] Address Unknown Phone Unavailable Care Team Providers Care Test Desk Supervisor Name Role Phone PEDRO GARCIA CP [...] Instructions Start Date End Date Status Dosage [facility] [address]-46 7.5-325 MG Orally 3 times a day November 28, 2014 1 tablet as needed Results No Known Results Summary Purpose eClinicalWorks Submission
--- OUTSIDE RECORDS SUMMARY | 2017-07-24 12:11 | XMS REPORT ---
Author PEDRO Zarco [facility] eClinical[employer] Address Unknown Phone Unavailable Care Team Providers Care Border Inspector Name Role Phone PEDRO GARCIA CP Unavailable Allergies, Adverse Reactions, Alerts Substance Reaction Event Type N.K.D.A. Info Not Available Non Drug Allergy Problems Problem Type Condition Code Onset Dates Condition Status Problem Pain in joint, lower leg 719.46 Active Problem Unspecified gastritis and gastroduodenitis without mention of hemorrhage 535.50 Active Problem Family history of diabetes mellitus V18.0 Active Problem Uncontrolled type 2 diabetes mellitus without complication, without long-term current use of insulin E11.65 Active Problem Type 2 diabetes mellitus with diabetic polyneuropathy E11.42 Active Problem Mood disorder F39 Active Problem Lumbago 724.2 Active Problem Family history of other cardiovascular diseases V17.49 Active Problem Type 2 diabetes mellitus with hyperglycemia E11.65 Active Problem Asthma, unspecified, unspecified status 493.90 Active Assessment Uncontrolled type 2 diabetes mellitus without complication, without long-term current use of insulin E11.65 Active Assessment Mood disorder F39 Active Problem Essential hypertension, benign 401.1 Active Problem Hematuria, unspecified 599.70 Active Problem Other and unspecified bipolar disorders 296.89 Active Problem Abdominal pain, generalized 789.07 Active Problem Other seborrheic keratosis 702.19 Active Problem Unspecified episodic mood disorder 296.90 Active Medications Medication Code System Code Instructions Start Date End Date Status Dosage True Metrix Meter NDC 0 glucometer 2 times a day May 19, 2016 test blood sugar Lisinopril-Hydrochlorothiazide [facility] 77877311542 20-25 MG Once a day 1 tablet Metformin HCl [facility] [address]-01 1000 MG Orally Twice a day February 25, 2016 1 tablet with meals Promethazine HCl [facility] 99348758335 25 MG Orally 3 times a day PRN 1 tablet as needed Singulair [facility] 17067215577 10 mg Orally Once a day 1 tablet at bedtime Prozac [facility] [address]-41 20 MG Orally Once a day 1 capsule Diclofenac Sodium [facility] 40136987657 75 MG Orally Twice a day [address] [facility] 88881787865 40 mg Orally Once a day [address] [facility] [address]-23 800 MG Orally Three times a day [address] [facility] [address]-25 1 MG Orally 2 times a day Apr 18, 2016 1 tablet Albuterol Sulfate [facility] [address]-18 90 mcg/actuation every 6 hrs Jun 04, 2014 inhale 2 puffs Cyclobenzaprine HCl [facility] [address]-23 10 mg Orally 2 times a day 1 tablet True Metrix Blood Glucose Test [facility] 8528-977194 - In Vitro 2 times a day May 19, 2016 as directed [place] [facility] [address]-40 7.5-325 MG Orally 3 times a day November 28, 2014 1 tablet as needed Accu-Chek Susan [facility] 0 1 In Vitro 2 times a day March 24, 2016 test blood sugar GlipiZIDE [facility] [address]-50 5 mg Orally 2 times a day Jun 30, [address] [facility] [address]-40 40 MG Orally Once a day 1 capsule Procedures Procedure Coding System Code Date Office Visit, Est Pt., Level 3 CPT-4 12076 Jun 30, 2016 Vital Signs Date/Time: Jun 30, 2016 Cardiac Monitoring Heart Rate 104 bpm Weight 320 lbs Height 72 in BMI 43.40 Index Blood Pressure Diastolic 74 mmHg Blood Pressure Systolic 130 mmHg Results No Known Results Summary Purpose [employer]ClinicalWorks Submission
--- OUTSIDE RECORDS SUMMARY | 2017-07-24 12:12 | XMS REPORT ---
Author Author PEDRO GARCIA Organization [facility] Address [address] [place] [address] Care Team Providers Care Automotive Machinist Name Role Phone PEDRO GARCIA Unavailable PROBLEMS Type Condition ICD9-CM Code [id number] Code Onset Dates Condition Status SNOMED Code Problem Mood disorder F39 Active 89157624 Problem Anxiety disorder, unspecified F41.9 Active 147467530 Problem Other chronic pain G89.29 Active 68887391 Problem Type 2 diabetes mellitus with hyperglycemia E11.65 Active 212877687152615 Problem Type 2 diabetes mellitus with diabetic polyneuropathy E11.42 Active 19306951 Problem Uncontrolled type 2 diabetes mellitus without complication, without long-term current use of insulin E11.65 Active 357647297 Problem Diabetic polyneuropathy associated with type 2 diabetes mellitus E11.42 Active 85153948 Problem 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 Unknown Non Drug Allergy Sep, Unknown SOCIAL HISTORY No smoking Hx information available PLAN OF CARE VITAL SIGNS Height 72 in 2016-09-29 Weight 314.0 lbs 2016-09-29 Temperature 98.1 degrees Fahrenheit 2016-09-29 Heart Rate 88 bpm 2016-09-29 Respiratory Rate 30 2016-09-29 BMI 42.58 kg/m2 2016-09-29 Blood pressure systolic 125 mmHg 2016-09-29 Blood pressure diastolic 83 mmHg 2016-09-29 MEDICATIONS Medication Instructions Dosage Frequency Start Date End Date Duration Status Amoxicillin 500 MG Orally every 8 hrs 1 capsule 8h Sep, Oct, 10 day(s) Active GlipiZIDE 5 mg Orally 2 times a day 1 tablet 12h 30 Active True Metrix Meter glucometer test blood sugar 12h 15 Sep, 2016 Active HydrOXYzine HCl 25 MG Orally every 8 hrs 1 tablet as needed 8h Sep, 30 day(s) Active True Metrix Blood Glucose Test - In Vitro 2 times a day as directed 12h May, Active Lisinopril-Hydrochlorothiazide 20-25 MG 1 tablet 24h 90 Active Diclofenac Sodium 75 MG Orally Twice a day 1 tablet 12h 90 Active Protonix 40 mg Orally Once a day 1 tablet 24h 90 Active Metformin HCl 1000 MG Orally Twice a day 1 tablet with meals 12h Feb, 90 days Active Xanax 1 MG Orally 2 times a day 1 tablet 12h Apr, 28 days Active [place] 7.5-325 MG Orally 3 times a day 1 tablet as needed 8h 09 Sep, 2016 28 days Active Cyclobenzaprine HCl 10 mg Orally 2 times a day 1 tablet 12h 30 Active Singulair 10 mg Orally Once a day 1 tablet at bedtime 24h 90 Active Prozac 40 MG Orally Once a day 1 capsule 24h 30 Active Accu-Chek Susan 1 In Vitro 2 times a day test blood sugar 12h Mar, Active Neurontin 800 MG Orally Three times a day 1 capsule 8h 30 Active Albuterol Sulfate 90 mcg/actuation inhale 2 puffs 6h Jun, Active Promethazine HCl 25 MG Orally 3 times a day PRN 1 tablet as needed 10 Active RESULTS Name Result Date Reference Range A1C (IN HOUSE) 2016-09-29 A1C IN HOUSE 6.2 4.3 - 5.6 % Previous A1c 7.1 Lot [id number] Exp date MICROALBUMIN, URINE (IN HOUSE) 2016-09-29 MICROALBUMIN Normal Lot # [id number] Exp date Clarity Clear Color Yellow ALB 10 CRE 100 A:C (IN HOUSE) <30 Control + Control - Lot # [id number] Exp date 04/2017 CMP 2016-09-29 Glucose, Serum 75 65-99 BUN 14 6-24 Creatinine, Serum 0.80 0.76-1.27 eGFR If NonAfricn Am 111 >59 eGFR If Africn Am 128 >59 BUN/Creatinine Ratio 18 9-20 Sodium, Serum 137 134-144 Potassium, Serum 4.4 3.5-5.2 Chloride, Serum 94 96-106 Carbon Dioxide, Total 26 18-29 Calcium, Serum 10.0 8.7-10.2 Protein, Total, Serum 7.4 6.0-8.5 Albumin, Serum 4.4 3.5-5.5 Globulin, Total 3.0 1.5-4.5 A/G Ratio 1.5 1.1-2.5 Bilirubin, Total <0.2 0.0-1.2 Alkaline Phosphatase, S 78 39-117 AST (SGOT) 27 0-40 ALT (SGPT) 48 0-44 [employer] 2016-09-29 Xray : Knee, Left 1-2 views (IN HOUSE) 2016-09-29 PROCEDURES Procedure Date Ordered Related Diagnosis Body Site GLYCATED HEMOGLOBIN TEST Sep 29, 2016 MICROALBUMIN, SEMIQUANT Sep 29, 2016 VENIPUNCT, ROUTINE* Sep 29, 2016 Office Visit, Est Pt., Level 3 Sep 29, 2016 [facility] Sep [facility], 2016 FLUARIX QUAD P-FREE 3 AND UP .50 2015Sep 29, 2016 No Charge Sep 29, 2016 X-RAY EXAM OF KNEE, 1 OR 2 Sep 29, 2016 SINGLE IMMUNIZATION ADMIN Sep 29, 2016 IMMUNIZATIONS Vaccine Route Administration Date Status FLUARIX QUAD P-FREE 3 AND UP .50 2015 IM Intramuscular Sep 29, 2016 Administered
--- OUTSIDE RECORDS SUMMARY | 2017-07-24 12:12 | XMS REPORT ---
Author Author PEDRO GARCIA Organization [employer] Address Unknown Phone Unavailable Care Team Providers Care Rn Transition Name Role Phone PEDRO GARCIA CP Unavailable [...]
--- OUTSIDE RECORDS SUMMARY | 2017-07-24 12:12 | XMS REPORT ---
Author Author PEDRO GARCIA Organization [facility] [place] [facility] Address [address] [place] [address] Care Team Providers Care Flood Control Engineer Name Role Phone RADHAPEDRO Unavailable PROBLEMS Type Condition ICD9-CM Code CNM39-VT Code Onset Dates Condition Status SNOMED Code Problem Mood disorder F39 Active 44754076 Problem Anxiety disorder, unspecified F41.9 Active 028287227 Problem Other chronic pain G89.29 Active 93067870 Problem Type 2 diabetes mellitus with hyperglycemia E11.65 Active 135717697719062 Problem Type 2 diabetes mellitus with diabetic polyneuropathy E11.42 Active 45380474 Problem Uncontrolled type 2 diabetes mellitus without complication, without long-term current use of insulin E11.65 Active 940431631 Problem Diabetic polyneuropathy associated with type 2 diabetes mellitus E11.42 Active 13236095 Problem 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 Active 022765577 Problem Chronic obstructive pulmonary disease, unspecified COPD type J44.9 Active 17557847 Problem Anxiety F41.9 Active 67012384 Problem Social phobia F40.10 Active 74840489 Problem Major depression, melancholic type F32.9 Active 982318364 ALLERGIES Unknown Allergies SOCIAL HISTORY No smoking Hx information available PLAN OF CARE VITAL SIGNS MEDICATIONS Medication Instructions Dosage Frequency Start Date End Date Duration Status Xanax 1 MG Orally 2 times a day 1 tablet 12h 15 Apr, 2016 28 days Active RESULTS No Results PROCEDURES No Known procedures IMMUNIZATIONS No Known Immunizations
--- OUTSIDE RECORDS SUMMARY | 2017-07-24 12:12 | XMS REPORT ---
Author PEDRO Zarco [facility] eClinical[employer] Address Unknown Phone Unavailable Care Team Providers Care Obstetric Anaesthetist Name Role Phone PEDRO GARCIA CP Unavailable [...] history of diabetes mellitus V18.0 Active Assessment Contusion of rib on left side, initial encounter S20.212A Active Problem Other and unspecified bipolar disorders 296.89 Active Problem Other seborrheic keratosis 702.19 Active Medications Medication Code System Code Instructions Start Date End Date Status Dosage Protonix [facility] 38608444723 40 MG Orally Once a day 1 tablet [place] [facility] [address]-64 7.5-325 MG Orally November 28, 2014 take 1 tablet by Oral route 2 times per day as needed for pain prn PredniSONE [facility] [address]-79 20 MG Orally Twice a day Jul 22, 2015Jul 1 tablet with food or milk Singulair [facility] 12049070518 10 MG TAKE ONE TABLET BY MOUTH AT BEDTIME Carafate [facility] [address]-29 1 gram Sep 03, 2014 1 tablet by Oral route 4 times per day Lorazepam [facility] [address]-31 0.5 MG Orally Once a day Apr 08, 2015 1 tablet as needed Albuterol Sulfate [facility] [address]-61 90 mcg/actuation every 6 hrs Jun 04, 2014 inhale 2 puffs Sucralfate [facility] 42496310675 1 GM TAKE ONE TABELT BY MOUTH BEFORE MEALS AND AT BEDTIME Prozac [facility] [address]-23 10 MG Orally Once a day January 02, 2015 1 capsule Lisinopril-Hydrochlorothiazide [facility] [address]-92 20-25 MG Once a day TAKE ONE TABLET Diclofenac Sodium [facility] [address]-27 75 MG Orally Twice a day Jul 22, 2015 Oct 20, 2015 1 tablet Cyclobenzaprine HCl [facility] [address]-48 10 MG Orally 2 times a day Jun 08, 2015 1 tablet Procedures Procedure Coding System Code Date Office Visit, Est Pt., Level 3 CPT-4 93671 Jul 22, 2015 TORADOL (IM) 60 MG/2ML (UP TO 15 MG) CPT-4 J1885 Jul 22, 2015 CHEST X-RAY CPT-4 58641 Jul 22, 2015 THER/PROPH/DIAG INJ, SC/IM CPT-4 94233 Jul 22, 2015 Vital Signs Date/Time: Jul 22, 2015 Temperature 97.1 F Weight 295.4 lbs Height 72 in BMI 40.06 Index Blood Pressure Diastolic 78 mmHg Blood Pressure Systolic 124 mmHg Cardiac Monitoring Heart Rate 108 bpm Results No Known Results Summary Purpose eClinicalWorks Submission
--- OUTSIDE RECORDS SUMMARY | 2017-07-24 12:12 | XMS REPORT ---
Author Author PEDRO GARCIA Organization [facility] Address [address] [place] [address] Care Team Providers Care Cardiac Cath Lab Radiology Technologist Name Role Phone PEDRO GARCIA Unavailable PROBLEMS Type Condition ICD9-CM Code JWB21-WM Code Onset Dates Condition Status SNOMED Code Problem Mood disorder F39 Active 33739513 Problem Anxiety disorder, unspecified F41.9 Active 532472220 Problem Other chronic pain G89.29 Active 82154625 Problem Type 2 diabetes mellitus with hyperglycemia E11.65 Active 325109442869610 Problem Type 2 diabetes mellitus with diabetic polyneuropathy E11.42 Active 40682193 Problem Uncontrolled type 2 diabetes mellitus without complication, without long-term current use of insulin E11.65 Active 873553346 Problem Diabetic polyneuropathy associated with type 2 diabetes mellitus E11.42 Active 77285972 Problem 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 Active 155787632 Problem Chronic obstructive pulmonary disease, unspecified COPD type J44.9 Active 22959548 Problem Anxiety F41.9 Active 79099340 Problem Social phobia F40.10 Active 61800895 Problem Major depression, melancholic type F32.9 Active 804523209 ALLERGIES No Information SOCIAL HISTORY Never Assessed PLAN OF CARE VITAL SIGNS MEDICATIONS Medication Instructions Dosage Frequency Start Date End Date Duration Status [place] 7.5-325 MG Orally 3 times a day 1 tablet as needed 8h 2016 Active Xanax 1 MG Orally 2 times a day 1 tablet 12h 15 Apr, 2016 28 days Active RESULTS No Results PROCEDURES No Known procedures IMMUNIZATIONS No Known Immunizations MEDICAL (GENERAL) HISTORY Type Description Date Medical History hypertension Medical History asthma Medical History depression and mood disorder Medical History chronic back pain Surgical History angiogram(heart cath) 01/2016 Hospitalization History pancreatitis 2014 Hospitalization History ER visit for abdominal crampintg 08/2015
--- OUTSIDE RECORDS SUMMARY | 2017-07-24 12:12 | XMS REPORT ---
Author Author PEDRO GARCIA Organization [employer] Address Unknown Phone Unavailable Care Team Providers Care Alliance Director Name Role Phone PEDRO GARCIA CP Unavailable [...] Asthma, unspecified, unspecified status 493.90 Active Problem Essential hypertension, benign 401.1 Active Problem Hematuria, unspecified 599.70 Active Problem Other and unspecified bipolar disorders 296.89 Active Problem Abdominal pain, generalized 789.07 Active Problem Other seborrheic keratosis 702.19 Active Problem Unspecified episodic mood disorder 296.90 Active Medications Medication Code System Code Instructions Start Date End Date Status Dosage Xanax [facility] [address]-95 1 MG Orally 2 times a day Apr 18, 2016 1 tablet Results No Known Results Summary Purpose eClinicalWorks Submission
--- OUTSIDE RECORDS SUMMARY | 2017-07-24 12:12 | XMS REPORT ---
Author PEDRO Zarco [facility] [place] eClinical[employer] Address Unknown Phone Unavailable Care Team Providers Care Suture Polisher Name Role Phone PEDRO GARCIA CP Unavailable [...] history of diabetes mellitus V18.0 Active Assessment Lumbago with sciatica, unspecified side M54.40 Active Problem Other and unspecified bipolar disorders 296.89 Active Problem Other seborrheic keratosis 702.19 Active Medications Medication Code System Code Instructions Start Date End Date Status Dosage Lorazepam [facility] [address]-18 0.5 MG Orally Once a day Apr 08, 2015 1 tablet as needed Protonix [facility] [address]-24 40 MG Orally Once a day March 04, 2015 1 tablet Albuterol Sulfate [facility] [address]-75 90 mcg/actuation Jun 04, 2014 inhale 1 puff by inhalation route every 6 hours as needed PRN cough or wheezing Sucralfate [facility] 57006070301 1 GM TAKE ONE TABELT BY MOUTH BEFORE MEALS AND AT BEDTIME Prozac [facility] [address]-43 10 MG Orally Once a day January 02, 2015 1 capsule Lisinopril-Hydrochlorothiazide [facility] [address]-94 20-25 MG Once a day TAKE ONE TABLET Singulair [facility] 98753062548 10 MG TAKE ONE TABLET BY MOUTH AT BEDTIME Cyclobenzaprine HCl [facility] [address]-54 10 MG Orally 2 times a day Jun 08, 2015 1 tablet [place] [facility] [address]-80 7.5-325 MG Orally November 28, 2014 take 1 tablet by Oral route 2 times per day as needed for pain prn Procedures Procedure Coding System Code Date TORADOL (IM) 60 MG/2ML (UP TO 15 MG) CPT-4 J1885 Jun 08, 2015 THER/PROPH/DIAG INJ, SC/IM CPT-4 40520 Jun 08, 2015 Office Visit, Est Pt., Level 3 CPT-4 72395 Jun 08, 2015 DEPO MEDROL 80 MG/ML CPT-4 J1040 Jun 08, 2015 Vital Signs Date/Time: Jun 08, 2015 Temperature 97.8 F Weight 285.5 lbs Height 72 in BMI 38.72 Index Blood Pressure Diastolic 70 mmHg Blood Pressure Systolic 124 mmHg Cardiac Monitoring Heart Rate 100 bpm Results No Known Results Summary Purpose eClinicalWorks Submission
--- OUTSIDE RECORDS SUMMARY | 2017-07-24 12:12 | XMS REPORT ---
Author Author PEDRO GARCIA [facility] e[employer] Address Unknown Phone Unavailable Care Team Providers Care Hull And Deck Remover Name Role Phone PEDRO GARCIA CP Unavailable [...] Date End Date Status Dosage Lorazepam [facility] [address]-79 0.5 MG Orally Once a day Apr 08, 2015 1 tablet as needed [place] [facility] [address]-08 7.5-325 MG Orally 3 times a day November 28, 2014 1 tablet as needed Results No Known Results Summary Purpose eClinicalWorks Submission
--- OUTSIDE RECORDS SUMMARY | 2017-07-24 12:13 | XMS REPORT ---
Author Author PEDRO GARCIA Organization [employer] Address Unknown Phone Unavailable Care Team Providers Care Hammer Operator Name Role Phone PEDRO GARCIA CP Unavailable [...] Start Date End Date Status Dosage Prozac [facility] [address]-74 10 MG Orally Once a day January 02, 2015 1 capsule Results No Known Results Summary Purpose [employer]ClinicalWorks Submission
--- OUTSIDE RECORDS SUMMARY | 2017-07-24 12:13 | XMS REPORT ---
Author Author PEDRO GARCIA Organization [employer] Address Unknown Phone Unavailable Care Team Providers Care Professor Of Musicology Name Role Phone PEDRO GARCIA CP Unavailable [...]
--- OUTSIDE RECORDS SUMMARY | 2017-07-24 12:13 | XMS REPORT ---
Author Author PEDRO GARCIA Organization [employer] Address Unknown Phone Unavailable Care Team Providers Care Advertising Writer Name Role Phone PEDRO GARCIA CP Unavailable [...] Unspecified episodic mood disorder 296.90 Active Medications No Known Medications Results No Known Results Summary Purpose [employer]ClinicalWorks Submission
--- OUTSIDE RECORDS SUMMARY | 2017-07-24 12:13 | XMS REPORT ---
Author Author PEDRO GARCIA Organization [employer] Address Unknown Phone Unavailable Care Team Providers Care Fat Purification Worker Name Role Phone PEDRO GARCIA CP Unavailable [...] Instructions Start Date End Date Status Dosage [facility] [address]-30 7.5-325 MG Orally 3 times a day November 28, 2014 1 tablet as needed Results No Known Results Summary Purpose eClinicalWorks Submission
--- OUTSIDE RECORDS SUMMARY | 2017-07-24 12:13 | XMS REPORT ---
Author Author PEDRO GARCIA Organization [employer] Address Unknown Phone Unavailable Care Team Providers Care Wet Chemistry Analyst Name Role Phone PEDRO GARCIA CP Unavailable [...] Problem Essential hypertension, benign 401.1 Active Assessment Elevated liver enzymes R74.8 Active Problem Hematuria, unspecified 599.70 Active Medications No Known Medications Results No Known Results Summary Purpose eClinicalWorks Submission
--- OUTSIDE RECORDS SUMMARY | 2017-07-24 12:13 | XMS REPORT ---
Author Author PEDRO GARCIA Organization [facility] Address [address] [place] [address] Care Team Providers Care Cleaning Porter Name Role Phone RADHAPEDRO Unavailable PROBLEMS Type Condition ICD9-CM Code [id number] Code Onset Dates Condition Status SNOMED Code Problem Mood disorder F39 Active 23222214 Problem Anxiety disorder, unspecified F41.9 Active 485262707 Problem Other chronic pain G89.29 Active 47887144 Problem Type 2 diabetes mellitus with hyperglycemia E11.65 Active 607857845687036 Problem Type 2 diabetes mellitus with diabetic polyneuropathy E11.42 Active 70389450 Problem Uncontrolled type 2 diabetes mellitus without complication, without long-term current use of insulin E11.65 Active 310002725 Problem Diabetic polyneuropathy associated with type 2 diabetes mellitus E11.42 Active 91531548 Problem 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 Active 744487235 Problem Chronic obstructive pulmonary disease, unspecified COPD type J44.9 Active 25316398 Problem Anxiety F41.9 Active 11590811 Problem Social phobia F40.10 Active 27141266 Problem Major depression, melancholic type F32.9 Active 004052032 ALLERGIES No Information SOCIAL HISTORY Never Assessed PLAN OF CARE VITAL SIGNS MEDICATIONS Medication Instructions Dosage Frequency Start Date End Date Duration Status GlipiZIDE 5 MG Orally 2 times a day 1 tablet 12h 90 days Active RESULTS No Results PROCEDURES No Known procedures IMMUNIZATIONS No Known Immunizations MEDICAL (GENERAL) HISTORY Type Description Date Medical History hypertension Medical History asthma Medical History depression and mood disorder Medical History chronic back pain Surgical History angiogram(heart cath) 01/2016 Hospitalization History pancreatitis 2013 Hospitalization History ER visit for abdominal crampintg 08/2015
--- OUTSIDE RECORDS SUMMARY | 2017-07-24 12:13 | XMS REPORT ---
Author PEDRO Zarco [facility] eClinicalWorks Address Unknown Phone Unavailable Care Team Providers Care Point Of Care Technician Name Role Phone PEDRO GARCIA CP Unavailable [...] history of diabetes mellitus V18.0 Active Assessment Abdominal pain, left upper quadrant R10.12 Active Problem Other and unspecified bipolar disorders 296.89 Active Problem Other seborrheic keratosis 702.19 Active Medications Medication Code System Code Instructions Start Date End Date Status Dosage Singulair [facility] 70601227725 10 MG TAKE ONE TABLET BY MOUTH AT BEDTIME Protonix [facility] 63955622389 40 MG Orally Once a day 1 tablet MiraLax [facility] [address]-94 17 gm/dose Orally Once a day Aug 19, 2015 1 capful mixed with 8 ounces of fluid Cyclobenzaprine HCl [facility] [address]-31 10 MG Orally 2 times a day Jun 08, 2015 1 tablet Lisinopril-Hydrochlorothiazide [facility] [address]-95 20-25 MG Once a day TAKE ONE TABLET [place] [facility] [address]-00 7.5-325 MG Orally 3 times a day November 28, 2014 1 tablet as needed Diclofenac Sodium [facility] [address]-08 75 MG Orally Twice a day Jul 22, 2015 Oct 20, 2015 1 tablet Albuterol Sulfate [facility] [address]-40 90 mcg/actuation every 6 hrs Jun 04, 2014 inhale 2 puffs Lorazepam [facility] [address]-08 0.5 MG Orally Twice a day Apr 08, 2015 1 tablet as needed Carafate [facility] [address]-54 1 gram Sep 03, 2014 1 tablet by Oral route 4 times per day Prozac [facility] [address]-87 10 MG Orally Once a day January 02, 2015 1 capsule Ketorolac Tromethamine [facility] [address]-96 10 MG Orally every 6 hrs Aug 19, 2015 Aug 24, 2015 1 tablet as needed Sucralfate [facility] 23916213458 1 GM TAKE ONE TABELT BY MOUTH BEFORE MEALS AND AT BEDTIME Zofran [facility] [address]-23 8 MG Orally Once a day Aug 19, 2015 1 tablet Procedures Procedure Coding System Code Date Office Visit, Est Pt., Level 3 CPT-4 91085 Aug 19, 2015 Vital Signs Date/Time: Aug 19, 2015 Temperature 97.2 F Weight 297 lbs Height 72 in BMI 40.28 Index Blood Pressure Diastolic 84 mmHg Blood Pressure Systolic 130 mmHg Cardiac Monitoring Heart Rate 96 bpm Results No Known Results Summary Purpose eClinicalWorks Submission
--- OUTSIDE RECORDS SUMMARY | 2017-07-24 12:13 | XMS REPORT ---
Author Author PEDRO GARCIA Organization [employer] Address Unknown Phone Unavailable Care Team Providers Care Software Team Leader Name Role Phone PEDRO GARCIA CP Unavailable [...] Start Date End Date Status Dosage Prozac [facility] [address]-33 10 MG Orally Once a day January 02, 2015 1 capsule Results No Known Results Summary Purpose eClinicalWorks Submission
--- OUTSIDE RECORDS SUMMARY | 2017-07-24 12:13 | XMS REPORT ---
Author PEDRO Zarco [facility] eClinicalWorks Address Unknown Phone Unavailable Care Team Providers Care Cable Installer Repairer Name Role Phone PEDRO GARCIA CP Unavailable [...] history of diabetes mellitus V18.0 Active Assessment Chest pain, unspecified type R07.9 Active Problem Other and unspecified bipolar disorders 296.89 Active Problem Other seborrheic keratosis 702.19 Active Medications Medication Code System Code Instructions Start Date End Date Status Dosage Prozac [facility] [address]-22 10 MG Orally Once a day January 02, 2015 1 capsule Diclofenac Sodium [facility] [address]-00 75 MG Orally Twice a day Jul 22, 2015 Oct 20, 2015 1 tablet Protonix [facility] 17135856176 40 MG Orally Once a day 1 tablet Lorazepam [facility] [address]-55 0.5 MG Orally Once a day Apr 08, 2015 1 tablet as needed Zofran [facility] [address]-48 8 MG Orally Once a day Aug 19, 2015 1 tablet Lisinopril-Hydrochlorothiazide [facility] [address]-71 20-25 MG Once a day TAKE ONE TABLET Singulair [facility] 32611991936 10 MG TAKE ONE TABLET BY MOUTH AT BEDTIME Cyclobenzaprine HCl [facility] 40672195642 10 MG Orally 2 times a day 1 tablet [place] [facility] [address]-89 7.5-325 MG Orally 3 times a day November 28, 2014 1 tablet as needed Albuterol Sulfate [facility] [address]-56 90 mcg/actuation every 6 hrs Jun 04, 2014 inhale 2 puffs MiraLax [facility] [address]-07 17 gm/dose Orally Once a day Aug 19, 2015 1 capful mixed with 8 ounces of fluid Sucralfate [facility] 47681522032 1 GM TAKE ONE TABELT BY MOUTH BEFORE MEALS AND AT BEDTIME Procedures Procedure Coding System Code Date ELECTROCARDIOGRAM, TRACING CPT-4 02456 Oct 05, 2015 Office Visit, Est Pt., Level 3 CPT-4 83141 Oct 05, 2015 CHEST X-RAY CPT-4 23083 Oct 05, 2015 Vital Signs Date/Time: Oct 05, 2015 Temperature 98.0 F Weight 305 lbs Height 72 in BMI 41.36 Index Blood Pressure Diastolic 82 mmHg Blood Pressure Systolic 128 mmHg Cardiac Monitoring Heart Rate 98 bpm Results No Known Results Summary Purpose eClinicalWorks Submission
--- OUTSIDE RECORDS SUMMARY | 2017-07-24 12:13 | XMS REPORT ---
Author Author PEDRO GARCIA Organization [facility] Address [address] [place] [address] Care Team Providers Care Civil Engineering Manager Name Role Phone RADHA PEDRO Unavailable PROBLEMS Type Condition ICD9-CM Code XJM11-OT Code Onset Dates Condition Status SNOMED Code Problem Mood disorder F39 Active 51786632 Problem Anxiety disorder, unspecified F41.9 Active 733487354 Problem Other chronic pain G89.29 Active 36486381 Problem Type 2 diabetes mellitus with hyperglycemia E11.65 Active 371219207160317 Problem Type 2 diabetes mellitus with diabetic polyneuropathy E11.42 Active 21154674 Problem Uncontrolled type 2 diabetes mellitus without complication, without long-term current use of insulin E11.65 Active 139623715 Problem Diabetic polyneuropathy associated with type 2 diabetes mellitus E11.42 Active 53275737 Problem 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 Active 404154973 Problem Chronic obstructive pulmonary disease, unspecified COPD type J44.9 Active 32591429 Problem Anxiety F41.9 Active 12936132 Problem Social phobia F40.10 Active 36651834 Problem Major depression, melancholic type F32.9 Active 598938410 ALLERGIES Unknown Allergies SOCIAL HISTORY No smoking Hx information available PLAN OF CARE VITAL SIGNS MEDICATIONS Medication Instructions Dosage Frequency Start Date End Date Duration Status [place] 7.5-325 MG Orally 3 times a day 1 tablet as needed 8h Sep, 28 days Active RESULTS No Results PROCEDURES No Known procedures IMMUNIZATIONS No Known Immunizations
--- OUTSIDE RECORDS SUMMARY | 2017-07-24 12:14 | XMS REPORT ---
Author Author PEDRO GARCIA [facility] eClinicalWorks Address Unknown Phone Unavailable Care Team Providers Care Shirt Bander Name Role Phone PEDRO GARCIA CP Unavailable [...]
--- OUTSIDE RECORDS SUMMARY | 2017-07-24 12:14 | XMS REPORT ---
Author Author PEDRO GARCIA [facility] eClinicalWorks Address Unknown Phone Unavailable Care Team Providers Care Financial Processing Clerk Name Role Phone PEDRO GARCIA CP Unavailable [...] Dosage [facility] [address]-62 7.5-325 MG Orally 3 times a day November 28, 2014 1 tablet as needed Results No Known Results Summary Purpose eClinicalWorks Submission
--- OUTSIDE RECORDS SUMMARY | 2017-07-24 12:14 | XMS REPORT ---
Author Author PEDRO GARCIA Organization [employer]Works Address Unknown Phone Unavailable Care Team Providers Care Obiee Lead Developer Name Role Phone PEDRO GARCIA CP Unavailable [...] Instructions Start Date End Date Status Dosage Metformin HCl [facility] [address]-84 1000 MG Orally Twice a day February 25, 2016 1 tablet with meals Results No Known Results Summary Purpose eClinicalWorks Submission
--- OUTSIDE RECORDS SUMMARY | 2017-07-24 12:14 | XMS REPORT ---
Author Author PEDRO GARCIA Organization [facility] Address [address] [place] [address] Care Team Providers Care Glaze Handler Name Role Phone PEDRO GARCIA Unavailable PROBLEMS Type Condition ICD9-CM Code [id number] Code Onset Dates Condition Status SNOMED Code Problem Unspecified episodic mood disorder 296.90 Active 695000354 Problem Family history of diabetes mellitus V18.0 Active 836776986 Problem Pain in joint, lower leg 719.46 Active 720320850 Problem Type 2 diabetes mellitus with diabetic polyneuropathy E11.42 Active 43306231 Problem Type 2 diabetes mellitus with hyperglycemia E11.65 Active 834963217133119 Problem Family history of other cardiovascular diseases V17.49 Active 953053122 Problem Unspecified gastritis and gastroduodenitis without mention of hemorrhage 535.50 Active 247555656 Problem Asthma, unspecified, unspecified status 493.90 Active 26531584 Problem Lumbago 724.2 Active 316816978 Assessment Diabetic polyneuropathy associated with type 2 diabetes mellitus E11.42 May, Active 04442765 Problem Other seborrheic keratosis 702.19 Active 012415272 Problem Essential hypertension, benign 401.1 Active 0099324 Assessment Carpal tunnel syndrome, right G56.01 May, Active 24068596 Problem Hematuria, unspecified 599.70 Active 94248351 Problem Other and unspecified bipolar disorders 296.89 Active 35367884 Problem Abdominal pain, generalized 789.07 Active 008729031 ALLERGIES Substance Reaction Event Type Date Status N.K.D.A. Unknown Non Drug Allergy May, Unknown SOCIAL HISTORY No smoking Hx information available PLAN OF CARE VITAL SIGNS Height 72 in 2016-05-19 Weight 321.1 lbs 2016-05-19 Heart Rate 88 bpm 2016-05-19 Respiratory Rate 24 2016-05-19 BMI 43.54 kg/m2 2016-05-19 Blood pressure systolic 122 mmHg 2016-05-19 Blood pressure diastolic 78 mmHg 2016-05-19 MEDICATIONS Medication Instructions Dosage Frequency Start Date End Date Duration Status MiraLax 17 gm/dose Orally Once a day 1 capful mixed with 8 ounces of fluid 24h 16 Aug, 2015 Active Promethazine HCl 25 MG Orally 3 times a day PRN 1 tablet as needed 10 Active Sucralfate 1 GM TAKE ONE TABELT BY MOUTH BEFORE MEALS AND AT BEDTIME 30 Active Cyclobenzaprine HCl 10 mg Orally 2 times a day 1 tablet 12h 30 Active Singulair 10 mg Orally Once a day 1 tablet at bedtime 24h 90 Active Accu-Chek [place] 1 In Vitro 2 times a day test blood sugar 12h Mar, Active Neurontin 400 MG Orally Three times a day 1 capsule 8h 30 Active Protonix 40 mg Orally Once a day 1 tablet 24h 90 Active Metformin HCl 1000 MG Orally Twice a day 1 tablet with meals 12h Feb, 30 day(s) Active Prozac 20 MG Orally Once a day 1 capsule 24h 30 Active [place] 7.5-325 MG Orally 3 times a day 1 tablet as needed 8h 27 Nov, 2014 Active Diclofenac Sodium 75 MG Orally Twice a day 1 tablet 12h 90 Active Albuterol Sulfate 90 mcg/actuation inhale 2 puffs 6h Jun, Active Lisinopril-Hydrochlorothiazide 20-25 MG 1 tablet 24h 90 Active Zofran 8 MG Orally Once a day 1 tablet 24h 30 Active Xanax 0.5 MG Orally 2 times a day 1 tablet 12h 15 Apr, 2016 Active RESULTS No Results PROCEDURES Procedure Date Ordered Related Diagnosis Body Site Office Visit, Est Pt., Level 3 May 19, 2016 IMMUNIZATIONS No Known Immunizations
--- OUTSIDE RECORDS SUMMARY | 2017-07-24 12:14 | XMS REPORT ---
Author Author PEDRO GARCIA [facility] eClinicalWorks Address Unknown Phone Unavailable Care Team Providers Care Duty Officer Name Role Phone PEDRO GARCIA CP [...] Asthma, unspecified, unspecified status 493.90 Active Assessment Seizures R56.9 Active Problem Essential hypertension, benign 401.1 Active Problem Hematuria, unspecified 599.70 Active Problem Other and unspecified bipolar disorders 296.89 Active Problem Abdominal pain, generalized 789.07 Active Problem Other seborrheic keratosis 702.19 Active Problem Unspecified episodic mood disorder 296.90 Active Medications No Known Medications Procedures Procedure Coding System Code Date VENIPUNCT, ROUTINE* CPT-4 01195 Jun 09, 2016 LAB NOT BILLED BY [facility] CPT-4 NOBLL Jun 09, 2016 Results Name Result Date Reference Range Unit Abnormality Flag TSH ----TSH 2.060 32179854 0.450-4.500 uIU/mL CBC ----Basos 1 43507564 % ----MCV 90 99440490 79-97 fL ----Hematocrit 41.4 55373495 37.5-51.0 % ----Eos 5 48319022 % ----MCHC 32.6 18322320 31.5-35.7 g/dL ----Monocytes 7 00349239 % ----MCH 29.5 32588825 26.6-33.0 pg ----Lymphs 26 12352180 % ----Eos (Absolute) 0.5 80140065 0.0-0.4 x10E3/uL H ----WBC 9.1 78199060 3.4-10.8 x10E3/uL ----Monocytes(Absolute) 0.7 53761179 0.1-0.9 x10E3/uL ----Lymphs (Absolute) 2.3 67595913 0.7-3.1 x10E3/uL ----Hemoglobin 13.5 48559458 12.6-17.7 g/dL ----Neutrophils (Absolute) 5.5 97737598 1.4-7.0 x10E3/uL ----RBC 4.58 25946582 4.14-5.80 x10E6/uL ----Immature Grans (Abs) 0.0 85117933 0.0-0.1 x10E3/uL ----Immature Granulocytes 0 91616615 % ----Neutrophils 61 80675642 % ----Baso (Absolute) 0.1 24696918 0.0-0.2 x10E3/uL ----RDW 13.6 44347667 12.3-15.4 % ----Platelets 352 97106600 150-379 x10E3/uL ROUTINE VENIPUNCTURE MAGNESIUM, SERUM ----Magnesium, Serum 1.7 18513363 1.6-2.3 mg/dL CMP ----Potassium, Serum 4.3 63595079 3.5-5.2 mmol/L ----Sodium, Serum 136 88635789 134-144 mmol/L ----BUN/Creatinine Ratio 20 77380209 9-20 ----eGFR If Africn Am 131 [id number] >59 mL/min/1.73 ----eGFR If NonAfricn Am 113 31858972 >59 mL/min/1.73 ----Creatinine, Serum 0.76 78079084 0.76-1.27 mg/dL ----BUN 15 20160609 6-24 mg/dL ----Glucose, Serum 187 07303415 65-99 mg/dL H ----AST (SGOT) 60 21978469 0-40 IU/L H ----Globulin, Total 2.4 28552762 1.5-4.5 g/dL ----ALT (SGPT) 96 63074399 0-44 IU/L H ----A/G Ratio 1.7 55038843 1.1-2.5 ----Bilirubin, Total 0.3 85698647 0.0-1.2 mg/dL ----Alkaline Phosphatase, S 70 06915777 39-117 IU/L ----Carbon Dioxide, Total 25 41945689 18-29 mmol/L ----Calcium, Serum 9.1 88082400 8.7-10.2 mg/dL ----Protein, Total, Serum 6.5 77112340 6.0-8.5 g/dL ----Albumin, Serum 4.1 03399790 3.5-5.5 g/dL ----Chloride, Serum 93 03931479 97-108 mmol/L L Summary Purpose eClinicalWorks Submission
--- OUTSIDE RECORDS SUMMARY | 2017-07-24 12:15 | XMS REPORT ---
Author Author PEDRO GARCIA [facility] eClinicalWorks Address Unknown Phone Unavailable Care Team Providers Care Director Market Intelligence Name Role Phone PEDRO GARCIA CP Unavailable [...] Medications Results No Known Results Summary Purpose [employer] Submission
--- OUTSIDE RECORDS SUMMARY | 2017-07-24 12:15 | XMS REPORT ---
Author Author PEDRO GARCIA Organization [facility] Address [address] [place] [address] Care Team Providers Care Wash Operator Name Role Phone RADHAPEDRO Unavailable PROBLEMS Type Condition ICD9-CM Code ENJ58-KP Code Onset Dates Condition Status SNOMED Code Problem Mood disorder F39 Active 51173252 Problem Anxiety disorder, unspecified F41.9 Active 094895985 Problem Other chronic pain G89.29 Active 55935757 Problem Type 2 diabetes mellitus with hyperglycemia E11.65 Active 563462313595719 Problem Type 2 diabetes mellitus with diabetic polyneuropathy E11.42 Active 88069409 Problem Uncontrolled type 2 diabetes mellitus without complication, without long-term current use of insulin E11.65 Active 603369473 Problem Diabetic polyneuropathy associated with type 2 diabetes mellitus E11.42 Active 98408185 Problem 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 Active 080305650 Problem Chronic obstructive pulmonary disease, unspecified COPD type J44.9 Active 72684110 Problem Anxiety F41.9 Active 84147565 Problem Social phobia F40.10 Active 70241028 Problem Major depression, melancholic type F32.9 Active 377740377 ALLERGIES No Information SOCIAL HISTORY Never Assessed PLAN OF CARE VITAL SIGNS MEDICATIONS Medication Instructions Dosage Frequency Start Date End Date Duration Status [place] 7.5-325 MG Orally 3 times a day 1 tablet as needed 8h Nov, Active RESULTS No Results PROCEDURES No Known procedures IMMUNIZATIONS No Known Immunizations MEDICAL (GENERAL) HISTORY Type Description Date Medical History hypertension Medical History asthma Medical History depression and mood disorder Medical History chronic back pain Surgical History angiogram(heart cath) 01/2016 Hospitalization History pancreatitis 2013 Hospitalization History ER visit for abdominal crampintg 08/2015
--- OUTSIDE RECORDS SUMMARY | 2017-07-24 12:15 | XMS REPORT ---
Author Author PEDRO GARCIA Organization [employer]Works Address Unknown Phone Unavailable Care Team Providers Care Leak Patcher Name Role Phone PEDRO GARCIA CP Unavailable [...] Problem Other seborrheic keratosis 702.19 Active Medications No Known Medications Procedures Procedure Coding System Code Date COMPLETE CBC W/AUTO DIFF WBC CPT-4 71535 Oct 06, 2015 NATRIURETIC PEPTIDE CPT-4 21003 Oct 06, 2015 ASSAY THYROID STIM HORMONE CPT-4 22215 Oct 06, 2015 COMPREHEN METABOLIC PANEL CPT-4 32877 Oct 06, 2015 LIPID PANEL CPT-4 52469 Oct 06, 2015 VENIPUNCT, ROUTINE* CPT-4 28190 Oct 06, 2015 Results Name Result Date Reference Range Unit Abnormality Flag ROUTINE VENIPUNCTURE Summary Purpose eClinicalWorks Submission
--- OUTSIDE RECORDS SUMMARY | 2017-07-24 12:15 | XMS REPORT ---
Author Author PEDRO GARCIA Organization eClinicalWorks Address Unknown Phone Unavailable Care Team Providers Care Dental Office Coordinator Name Role Phone PEDRO GARCIA CP Unavailable [...] Start Date End Date Status Dosage Lorazepam [facility] [address]-63 0.5 MG Orally Twice a day Apr 08, 2015 1 tablet as needed Results No Known Results Summary Purpose eClinicalWorks Submission
--- OUTSIDE RECORDS SUMMARY | 2017-07-24 12:15 | XMS REPORT ---
Author Author PEDRO GARCIA [facility] eClinicalWorks Address Unknown Phone Unavailable Care Team Providers Care Oil Recovery Operator Name Role Phone PEDRO GARCIA CP [...] Instructions Start Date End Date Status Dosage [facility] [address]-93 7.5-325 MG Orally 3 times a day November 28, 2014 1 tablet as needed Results No Known Results Summary Purpose eClinicalWorks Submission
--- OUTSIDE RECORDS SUMMARY | 2017-07-24 12:15 | XMS REPORT ---
Author Author PEDRO GARCIA Organization eClinical[employer] Address Unknown Phone Unavailable Care Team Providers Care Residential Lawn Specialist Name Role Phone PEDRO GARCIA CP Unavailable [...] Start Date End Date Status Dosage Lorazepam [facility] [address]-90 0.5 MG Orally Once a day Apr 08, 2015 1 tablet as needed Results No Known Results Summary Purpose eClinicalWorks Submission
--- NOTE | 2017-07-24 12:16 | Diagnostic Imaging Report ---
PROCEDURE: CT abdomen and pelvis with contrast. TECHNIQUE: Multiple contiguous axial images were obtained through the abdomen and pelvis after administration of intravenous contrast. INDICATION: Upper abdominal pain. 100 ML of Omnipaque 350 is administered intravenously. FINDINGS: The lung bases appear clear. The liver demonstrate diffuse hepatic steatosis. The gallbladder has no calcified stones. The spleen, the adrenal glands and the pancreas appear unremarkable. Kidneys demonstrate focal hypodensities less than a centimeter in size, too small to accurately characterize. No hydronephrosis. The abdominal aorta is normal in caliber. No para-aortic significantly enlarged lymph node is seen. There is no bowel obstruction. The appendix is not identified. There is a small amount of fat distending the left inguinal canal suggestive of a small indirect inguinal hernia. There is also a tiny fat-containing umbilical hernia. No significant free fluid or fluid collection in the abdomen or pelvis is seen. The osseous structures demonstrate mild degenerative change. IMPRESSION: 1. There are small fat-containing left inguinal and tiny umbilical hernias. 2. Hepatic steatosis. Dictated by: Dictated on workstation # [id number]
[2017-07-24 12:44] LABS: BILIRUBIN,URINE NEGATIVE (NEGATIVE); KETONES,URINE NEGATIVE (NEGATIVE); LEUKOCYTE ESTERASE ,URINE NEGATIVE (NEGATIVE); NITRITE,URINE NEGATIVE (NEGATIVE); PH,URINE 6 (5-9); PROTEIN,URINE NEGATIVE (NEGATIVE); UROBILINOGEN,URINE NORMAL (NORMAL)
[2017-07-24 13:01] LABS: SQUAMOUS EPITHELIAL CELL,UR RARE /HPF
[2017-07-24] MEDS ORDERED: FAMO-119 PO (13:05)
[2017-07-24] MEDS ORDERED: HYOS-19 SL (13:05)
[2017-07-24 13:54] VITALS: BP 122/90
== END 2017-07-24 13:54 | disposition home or self-care (01) ==
LOC: EDUNIT# 10:24 → ER 10:26
DX: R10.13 Epigastric pain (principal); R10.84 Generalized abdominal pain; E86.9 Volume depletion, unspecified; E11.9 Type 2 diabetes mellitus without complications; J44.9 Chronic obstructive pulmonary disease, unspecified; I10 Essential (primary) hypertension; K21.9 Gastro-esophageal reflux disease without esophagitis; F41.9 Anxiety disorder, unspecified; F32.9 Major depressive disorder, single episode, unspecified; F17.210 Nicotine dependence, cigarettes, uncomplicated; Z87.19 Personal history of other diseases of the digestive system; Z82.49 Family history of ischemic heart disease and other diseases of the circulatory system
CPT/HCPCS: 36415; 74177; 80053; 80306; 81000; 83690; 83735; 85007; 85027; 96374; 96375

== ENCOUNTER → 2017-10-23 | Outpatient (CLI) | payer MEDICAID ==
[~2017-10-23] MED LIST changes: +HYDR-34 PO; -HYDR-3816 PO; +HYOS-19 SL
== END ==
LOC: CARD 08:58
PROVIDERS: ATTEND Physician Assistant
DX: R07.89 Other chest pain (principal); I10 Essential (primary) hypertension; R06.02 Shortness of breath; E66.8 Other obesity
CPT/HCPCS: 93306

== ENCOUNTER → 2017-10-25 | Outpatient (CLI) | payer MEDICAID ==
[~2017-10-25] VITALS: Ht 182.9 cm; Wt 132.4 kg
[~2017-10-25] MED LIST changes: +CATHETER FLUSH 10 ML SYR IV PRN; +REGADENOSON 0.4 MG/5 ML SYR (LEXISCAN) IV ONE
[2017-10-25 08:27] LABS: ALANINE AMINOTRANSFERASE 38 U/L (0-55); ALBUMIN 4.3 GM/DL (3.2-4.5); ALKALINE PHOSPHATASE 71 U/L (40-136); BILIRUBIN,TOTAL 0.6 MG/DL (0.1-1.0); BUN/CREATININE RATIO 20; CALCIUM 9.7 MG/DL (8.5-10.1); CARBON DIOXIDE 24 MMOL/L (21-32); CHLORIDE 98 MMOL/L (98-107); CHOLESTEROL 204 MG/DL (< 200); CREATININE SERUM 0.82 MG/DL (0.60-1.30); GFR ESTIMATED > 60; GLUCOSE 115 MG/DL (70-105); HDL CHOLESTEROL 40 MG/DL (40-60); POTASSIUM 4.2 MMOL/L (3.6-5.0); SODIUM 136 MMOL/L (135-145); TOTAL PROTEIN 7.7 GM/DL (6.4-8.2); TRIGLYCERIDES 262 MG/DL (<150); VLDL CHOLESTEROL 52 MG/DL (5-40)
[2017-10-25 09:58] VITALS: BP 111/77
--- NOTE | 2017-10-25 15:07 | STRESS TEST ---
DATE OF SERVICE: 10/25/2017 LEXISCAN MYOVIEW STRESS TEST REPORT. REFERRING PHYSICIAN: [facility]. TEST DATE: 10/25/2017 Baseline heart rate is 86. Baseline blood pressure 126/82. Baseline EKG is sinus rhythm with no ischemic changes. SUMMARY: The patient was injected with 10.77 mCi of technetium-99 Myoview and the resting images were obtained. Then, the patient received 0.4 mg of Lexiscan followed by 32.1 mCi of technetium-99 Myoview. Throughout the test, there were no EKG changes. The resting and stress images were reviewed and compared in the short axis, horizontal long axis, and vertical long axis views. Review of the images showed diaphragmatic attenuation with no significant ischemia or infarction. SSS is 3, SDS 1, TID value is 0.93. On the gated images, the left ventricle appeared to be in normal size with normal contractility. Calculated ejection fraction is 66%. CONCLUSION: 1. The patient tolerated Lexiscan well. 2. Diaphragmatic attenuation with no significant ischemia or infarction on SPECT images. 3. Normal left ventricular size with normal contractility. Calculated ejection fraction 66%. Job ID: [id number] DocumentID: [id number] Dictated Date: 10/25/2017 13:56:38 Journeyman Carpenter Date: 10/25/2017 14:59:36 Dictated By: DAVON BALDERRAMA MD
== END ==
LOC: CARD 07:51
PROVIDERS: ATTEND Physician Assistant
DX: R07.89 Other chest pain (principal); I10 Essential (primary) hypertension; R06.02 Shortness of breath; R26.81 Unsteadiness on feet; E66.8 Other obesity
CPT/HCPCS: 36415; 78452; 80053; 80061; 93017

== ENCOUNTER 2019-05-10 10:12 | Emergency (ER) | payer MEDICAID ==
[~2019-05-10] VITALS: Ht 182.9 cm; Wt 132.0 kg
[~2019-05-10 10:12] MED LIST changes: -CATHETER FLUSH 10 ML SYR IV PRN; -REGADENOSON 0.4 MG/5 ML SYR (LEXISCAN) IV ONE
--- NOTE | 2019-05-10 10:55 | ED Cough/URI ---
General Chief Complaint: Respiratory Problems Stated Complaint: SOA Nursing Triage Note: Pt to ED via EMS with c/o SOB that began at 0100. BS 192 enroute to ED. Pt also reports lower abdominal pain. Sepsis Screen: No Definite Risk Source: patient Exam Limitations: no limitations History of Present Illness Date Seen by Provider: May 10, 2019 Time Seen by Provider: 10:53 Initial Comments To ER with shortness of breath that began at 1 AM this morning. States that he hasn't been able to sleep for 3 days, not sure why. He did have some chest pain earlier, this was lower chest worsened by deep breathing. It's better but still present and worse with breathing. He's also had a cough lately. Denies any abdominal pain but does report nausea. Was given Zofran in route by ambulance but denies improvement. Timing/Duration: constant Severity/Quality: moderate Associated Symptoms: cough, shortness of breath Allergies and Home Medications Allergies Coded Allergies: No Known Drug Allergies (Unverified , 04/05/12) Home Medications Albuterol Sulfate 8.5 Gm Hfa.aer.ad, 2 PUFF IH Q6H PRN for SHORTNESS OF BREATH, (Reported) Calcium Polycarbophil 625 Mg Tablet, 625 MG PO HS, (Reported) Ciprofloxacin HCl 500 Mg Tablet, 500 MG PO BID Prescribed by: PEDRO SCRUGGS on 07/15/16 1111 Cyclobenzaprine HCl 10 Mg Tablet, 10 MG PO BID, (Reported) Diclofenac Sodium 75 Mg Tablet.dr, 75 MG PO BID, (Reported) Dicyclomine HCl 20 Mg Tablet, 20 MG PO QID PRN for PAIN Prescribed by: ARCHANA OLIVAREZ on 06/23/162121 Famotidine 20 Mg Tablet, 20 MG PO BID Prescribed by: TANK MASON on 07/24/17 1305 Fluoxetine HCl 10 Mg Capsule, 10 MG PO DAILY, (Reported) Hctz/Lisinopril 1 Tab Tablet, 1 TAB PO DAILY, (Reported) Hydrocodone Bit/Acetaminophen 1 Each Tablet, 1 TAB PO Q6H PRN for PAIN, (Reported) Hyoscyamine Sulfate 0.125 Mg Tab.subl, 0.125 MG SL Q6H PRN for SPASMS Prescribed by: TANK MASON on 07/24/17 1305 Lorazepam 0.5 Mg Tablet, 0.5 MG PO HS, (Reported) Lorazepam 1 Mg Tablet, 1 MG PO HS PRN for INSOMNIA Prescribed by: MEIR ROSAS on 05/10/19 1258 Metoclopramide HCl 5 Mg Tablet, 5 MG PO TID Prescribed by: MEIR ROSAS on 05/10/19 1258 Montelukast Sodium 10 Mg Tablet, 10 MG PO HS, (Reported) [place] 3 Polyunsat Fatty Acids 1,000 Mg Cap, 1,000 MG PO DAILY, (Reported) [place] 3 Polyunsat Fatty Acids 1,000 Mg Cap, 2,000 MG PO HS, (Reported) TAKES 2 (1,000MG) CAPSULES Ondansetron HCl 4 Mg Tab, 4 MG PO Q6H PRN for NAUSEA/VOMITING Prescribed by: PEDRO SCRUGGS on 07/15/16 1111 Pantoprazole Sodium 40 Mg Tablet.dr, 40 MG PO DAILY, (Reported) Polyethylene Glycol 3350 17 Gm Powd.pack, 17 GM PO DAILY PRN for CONSTIPATION, (Reported) Sucralfate 1 Gm Tablet, 1 GM PO BID, (Reported) Patient Home Medication List Home Medication List Reviewed: Yes Review of Systems Review of Systems Constitutional: see HPI EENTM: see HPI Respiratory: see HPI, cough, short of breath Cardiovascular: see HPI, chest pain Genitourinary: no symptoms reported Musculoskeletal: no symptoms reported Skin: no symptoms reported Psychiatric/Neurological: No Symptoms Reported Hematologic/Lymphatic: No Symptoms Reported Immunological/Allergic: no symptoms reported Past Itbtuuw-Eqxrif-Lthtwa Hx Patient Social History Alcohol Use: Past History Recreational Drug Use: No Smoking Status: Current Everyday Smoker Type Used: Cigarettes 2nd Hand Smoke Exposure: Yes Recent Foreign Travel: No Contact w/Someone Who Travel: No Recent Infectious Disease Expo: No Recent Hopitalizations: No Physical Abuse: No Sexual Abuse: No Immunizations Up To Date Tetanus Booster (TDap): Less than 5yrs PED Vaccines UTD: Yes Date of Pneumonia Vaccine: Jul 05, 2011 Date of Influenza Vaccine: Jun 04, 2011 Seasonal Allergies Seasonal Allergies: Yes Past Medical History Surgeries: No Respiratory: Yes Asthma, COPD Cardiac: Yes Hypertension Neurological: No Reproductive Disorders: No Sexually Transmitted Disease: No HIV/AIDS: No Gastrointestinal: Yes Gastroesophageal Reflux, Pancreatitis Musculoskeletal: No Endocrine: No Loss of Vision: Denies Hearing Impairment: Denies Cancer: No Psychosocial: No Anxiety, Depression Integumentary: No Blood Disorders: No Adverse Reaction/Blood Tranf: No Family Medical History Alzheimer's disease Arthritis Asthma Cataracts Completed stroke Coronary thrombosis Diabetes mellitus Drug abuse Headache disorder Hypertension Myocardial infarction Seizure disorder Severe allergy No Family History of: AIDS Abdominal aortic aneurysm [place]'s disease Alcoholism Aphasia Cancer of mouth Cardiovascular disease Colon cancer Congenital disease Congenital heart disease Cystic fibrosis Deafness or hearing loss Dementia Dysphasia Fibrocystic disease of breast Gastroenteritis Glaucoma Hypercholesterolemia Infertility Kidney disease Neoplasm Not obtainable due to adoption Osteoporosis Parkinson's disease Prostate cancer Psychosocial problem Respiratory disorder Thyroid disease Tuberculosis Visual disorder No Pertinent Family Hx Physical Exam Vital Signs - First Documented 05/10/19 10:12 Temp 98.4 Pulse 69 Resp 23 B/P (MAP) 143/95 (111) Pulse Ox 96 O2 Delivery Room Air Capillary Refill : Less Than 3 Seconds Height: 6'0" Weight: 291lbs. 0.0oz. 131.544668dv; 39.6 BMI Method:Stated General Appearance: WD/WN, no apparent distress Eyes: Bilateral Eye Normal Inspection, Bilateral Eye PERRL, Bilateral Eye EOMI HEENT: PERRL/EOMI, normal ENT inspection Neck: non-tender, full range of motion Respiratory: normal breath sounds, no respiratory distress, no accessory muscle use Cardiovascular: regular rate, rhythm, no murmur Gastrointestinal: normal bowel sounds, non tender, soft Extremities: normal range of motion, non-tender Neurologic/Psychiatric: alert, normal mood/affect, oriented x 3 Skin: normal color, warm/dry Progress/Results/Core Measures Suspected Sepsis Recent Fever Within 48 Hours: No Infection Criteria Present: None New/Unexplained Altered Menta: No Sepsis Screen: No Definite Risk SIRS Temperature:98.4 Pulse: 69 Respiratory Rate: 23 Laboratory Tests 05/10/19 10:26: White Blood Count 10.3 Blood Pressure 143 /95 Mean: 111 Laboratory Tests 05/10/19 10:26: Platelet Count 375 05/10/19 11:18: Creatinine 0.74, Total Bilirubin 0.3 Results/Orders Lab Results Laboratory Tests Test 05/10/19 10:26 05/10/19 11:18 Range/Units White Blood Count 10.3 4.3-11.0 10^3/uL Red Blood Count 5.12 4.35-5.85 10^6/uL Hemoglobin 14.5 13.3-17.7 G/DL Hematocrit 44 40-54 % Mean Corpuscular Volume 87 80-99 FL Mean Corpuscular Hemoglobin 28 25-34 PG Mean Corpuscular Hemoglobin Concent 33 32-36 G/DL Red Cell Distribution Width 13.7 10.0-14.5 % Platelet Count 375 130-400 10^3/uL Mean Platelet Volume 10.7 H 7.4-10.4 FL Neutrophils (%) (Auto) 66 42-75 % Lymphocytes (%) (Auto) 23 12-44 % Monocytes (%) (Auto) 6 0-12 % Eosinophils (%) (Auto) 4 0-10 % Basophils (%) (Auto) 0 0-10 % Neutrophils # (Auto) 6.8 1.8-7.8 X 10^3 Lymphocytes # (Auto) 2.4 1.0-4.0 X 10^3 Monocytes # (Auto) 0.7 0.0-1.0 X 10^3 Eosinophils # (Auto) 0.4 H 0.0-0.3 10^3/uL Basophils # (Auto) 0.0 0.0-0.1 10^3/uL D-Dimer 0.54 H 0.00-0.49 UG/ML Sodium Level 137 135-145 MMOL/L Potassium Level 4.4 3.6-5.0 MMOL/L Chloride Level 103 98-107 MMOL/L Carbon Dioxide Level 26 21-32 MMOL/L Anion Gap 8 5-14 MMOL/L Blood Urea Nitrogen 8 7-18 MG/DL Creatinine 0.74 0.60-1.30 MG/DL Estimat Glomerular Filtration Rate > 60 BUN/Creatinine Ratio 11 Glucose Level 175 H 70-105 MG/DL Calcium Level 9.7 8.5-10.1 MG/DL Corrected Calcium 9.5 8.5-10.1 MG/DL Total Bilirubin 0.3 0.1-1.0 MG/DL Aspartate Amino Transf (AST/SGOT) 17 5-34 U/L Alanine Aminotransferase (ALT/SGPT) 20 0-55 U/L Alkaline Phosphatase 89 40-136 U/L Troponin I < 0.028 <0.028 NG/ML Total Protein 7.7 6.4-8.2 GM/DL Albumin 4.3 3.2-4.5 GM/DL My Orders Orders - MEIR ROSAS APRN Troponin I (05/10/19 10:52) Ekg Tracing (05/10/19 10:52) Fibrin Degradation Products (05/10/19 10:52) Cbc With Automated Diff (05/10/19 10:52) Comprehensive Metabolic Panel (05/10/19 10:52) Ed Iv/Invasive Line Start (05/10/19 10:52) Ns Iv 500 Ml (Sodium Chloride 0.9%) (05/10/19 11:00) Promethazine Injection (Phenergan Injec (05/10/19 11:00) Chest 1 View, Ap/Pa Only (05/10/19 11:14) Diphenhydramine Injection (Benadryl Inje (05/10/19 11:45) Ct Angio Chest W (05/10/19 11:52) Iohexol Injection (Omnipaque 350 Mg/Ml 1 (05/10/19 12:30) Received Contrast (Hold Metformin- Contr (05/10/19 12:30) Ns (Ivpb) (Sodium Chloride 0.9% Ivpb Bag (05/10/19 12:30) Ua Culture If Indicated (05/10/19 12:58) Drug Screen Stat (Urine) (05/10/19 12:58) Metoclopramide Injection (Reglan Injecti (05/10/19 13:00) Medications Given in ED Current Medications Medications Dose Ordered Sig/Tyler Route Start Time Stop Time Status Last Admin Dose Admin Diphenhydramine HCl 25 mg ONCE ONCE IVP 05/10/19 11:45 05/10/19 11:46 DC 05/10/19 12:01 25 MG Promethazine HCl 25 mg ONCE ONCE IVP 05/10/19 11:00 05/10/19 11:01 DC 05/10/19 11:11 25 MG Vital Signs/I&O 05/10/19 10:12 Temp 98.4 Pulse 69 Resp 23 B/P (MAP) 143/95 (111) Pulse Ox 96 O2 Delivery Room Air Capillary Refill : Less Than 3 Seconds Blood Pressure Mean: 111 Departure Communication (Admissions) 1251-still reports nausea. Denies any pain at all. States he just wants to go on home. Labs have been reviewed and are unremarkable as is a CT angio chest. He would like something to help him sleep so I'll prescribe lorazepam in addition to some Reglan, Reglan chosen because he is a diabetic, Zofran and Phenergan and Benadryl has not helped and diabetic gastroparesis is certainly within the differential.. Impression Primary Impression: nausea Additional Impression: transient shortness of breath Disposition: HOME, SELF-CARE Condition: Stable Departure-Patient Inst. Decision time for Depature: 12:51 Referrals: [facility]/LARRY (PCP) Primary Care Physician PEDRO GARCIA (Family) Primary Care Physician Patient Instructions: Nausea and Vomiting, Adult Add. Discharge Instructions: 1. Return to ER for any concerns 2. Follow-up with your doctor next week 3. All discharge instructions reviewed with patient and/or family. Voiced understanding. Scripts Lorazepam (Lorazepam) 1 Mg Tablet 1 MG PO HS PRN for INSOMNIA, #5 TAB Prov: MEIR ROSAS APRN 05/10/19 Metoclopramide HCl (Reglan) 5 Mg Tablet 5 MG PO TID, #10 TAB Prov: MEIR ROSAS APRN 05/10/19 MEIR ROSAS APRN May 10, 2019 10:54
[2019-05-10] MEDS ORDERED: PROMETHAZINE INJ 25 MG/ML (PHENERGAN) AMP IVP ONE (11:00)
[2019-05-10] MEDS ORDERED: NS IV 500 ML 500 ML IV SCH (11:00)
[2019-05-10 11:08] LABS: BASOPHILS % (AUTO) 0 % (0-10); EOSINOPHILS # (AUTO) 0.4 10^3/uL (0.0-0.3); EOSINOPHILS % (AUTO) 4 % (0-10); HEMATOCRIT 44 % (40-54); HEMOGLOBIN 14.5 G/DL (13.3-17.7); LYMPHOCYTES # (AUTO) 2.4 X 10^3 (1.0-4.0); LYMPHOCYTES % (AUTO) 23 % (12-44); MEAN CORPUSCULAR HEMOGLOBIN 28 PG (25-34); MEAN CORPUSCULAR HGB CONC 33 G/DL (32-36); MEAN CORPUSCULAR VOLUME 87 FL (80-99); MEAN PLATELET VOLUME 10.7 FL (7.4-10.4); MONOCYTES # (AUTO) 0.7 X 10^3 (0.0-1.0); MONOCYTES % (AUTO) 6 % (0-12); NEUTROPHILS # (AUTO) 6.8 X 10^3 (1.8-7.8); NEUTROPHILS % (AUTO) 66 % (42-75); PLATELET COUNT 375 10^3/uL (130-400); RED CELL DISTRIBUTION WIDTH 13.7 % (10.0-14.5); WHITE BLOOD COUNT 10.3 10^3/uL (4.3-11.0)
[2019-05-10 11:44] LABS: ALANINE AMINOTRANSFERASE 20 U/L (0-55); ALBUMIN 4.3 GM/DL (3.2-4.5); ALKALINE PHOSPHATASE 89 U/L (40-136); BILIRUBIN,TOTAL 0.3 MG/DL (0.1-1.0); BUN/CREATININE RATIO 11; CALCIUM 9.7 MG/DL (8.5-10.1); CARBON DIOXIDE 26 MMOL/L (21-32); CHLORIDE 103 MMOL/L (98-107); CREATININE SERUM 0.74 MG/DL (0.60-1.30); GFR ESTIMATED > 60; GLUCOSE 175 MG/DL (70-105); POTASSIUM 4.4 MMOL/L (3.6-5.0); SODIUM 137 MMOL/L (135-145); TOTAL PROTEIN 7.7 GM/DL (6.4-8.2)
[2019-05-10] MEDS ORDERED: diphenhydrAMINE 50 MG/ML INJ (BENADRYL) IVP ONE (11:45)
--- NOTE | 2019-05-10 12:11 | Diagnostic Imaging Report ---
INDICATION: Shortness of air and nausea. TIME OF EXAM: 11:45 a.m. COMPARISON: Correlation is made with prior study from 01/06/2016. FINDINGS: The heart appears enlarged but stable. The lungs are clear. There is no infiltrate or failure. No effusion or pneumothorax is seen. IMPRESSION: Cardiomegaly. The study is otherwise unremarkable. Dictated by: Dictated on workstation # [id number]
[2019-05-10] MEDS ORDERED: HOLD METFORMIN - RECEIVED CONTRAST 20 ML VIAL IV SCH (12:30)
[2019-05-10] MEDS ORDERED: IOHEXOL 350 MG/ML 150 ML (OMNIPAQUE 350) VIAL IV ONE (12:30)
[2019-05-10] MEDS ORDERED: NS 100 ML (IVPB) BAG IV ONE (12:30)
--- NOTE | 2019-05-10 12:37 | Diagnostic Imaging Report ---
PROCEDURE: CT angiography of the chest with contrast. TECHNIQUE: Multiple contiguous axial images were obtained through the chest after uneventful bolus administration of intravenous contrast. 3D reconstructed CTA MIP acquisitions were also performed. Auto Exposure Controls were utilized during the CT exam to meet ALARA standards for radiation dose reduction. INDICATION: Chest pain and shortness of air. COMPARISON: No prior studies are available for comparison. FINDINGS: Evaluation of the pulmonary arterial system is without thromboembolism. No filling defects are seen within central, lobar, or segmental branches. The thoracic aorta is normal in caliber. No dissection is seen. Aberrant right subclavian artery in a retroesophageal location is noted, a normal variant. No pericardial or pleural fluid is identified. No pulmonary infiltrates, nodules, or masses are seen. Upper abdomen is unremarkable. IMPRESSION: No evidence of pulmonary embolism or thoracic aortic dissection. Dictated by: Dictated on workstation # [id number]
[2019-05-10] MEDS ORDERED: METO5TAB75 PO (12:58)
[2019-05-10] MEDS ORDERED: LORA1TAB PO (12:58)
[2019-05-10] MEDS ORDERED: METOCLOPRAMIDE INJ 10 MG/2 ML (REGLAN) IVP ONE (13:00)
[2019-05-10 13:08] LABS: BILIRUBIN,URINE NEGATIVE (NEGATIVE); CLARITY,URINE CLEAR; COLOR,URINE YELLOW; GLUCOSE, URINE (UA) 4+ (NEGATIVE); KETONES,URINE NEGATIVE (NEGATIVE); LEUKOCYTE ESTERASE ,URINE NEGATIVE (NEGATIVE); NITRITE,URINE NEGATIVE (NEGATIVE); PH,URINE 6.5 (5-9); PROTEIN,URINE NEGATIVE (NEGATIVE); UROBILINOGEN,URINE NORMAL (NORMAL)
[2019-05-10 13:16] VITALS: BP 133/81
[2019-05-10 13:16] LABS: BACTERIA,URINE TRACE /HPF; RBC,URINE 0-2 /HPF; WBC,URINE RARE /HPF
[2019-05-10 13:22] LABS: AMPHETAMINE SCREEN, URINE NEGATIVE (NEGATIVE); BARBITURATE SCREEN URINE NEGATIVE (NEGATIVE); BENZODIAZEPINES SCREEN URINE NEGATIVE (NEGATIVE); CANNABINOID SCREEN, URINE NEGATIVE (NEGATIVE); COCAINE SCREEN URINE NEGATIVE (NEGATIVE); METHADONE STAT NEGATIVE (NEGATIVE); METHAMPHETAMINE SCREEN URINE S NEGATIVE (NEGATIVE); OPIATE SCREEN URINE NEGATIVE (NEGATIVE); OXYCODONE STAT NEGATIVE (NEGATIVE); PROPOXYPHENE STAT NEGATIVE (NEGATIVE); TRICYCLIC ANTIDEPRESSANTS SCRE NEGATIVE (NEGATIVE)
== END 2019-05-10 13:16 | disposition home or self-care (01) ==
LOC: ER 10:12 → EDUNIT# 10:12 → ER 13:16
DX: R06.02 Shortness of breath (principal); R11.0 Nausea; J44.9 Chronic obstructive pulmonary disease, unspecified; I10 Essential (primary) hypertension; K21.9 Gastro-esophageal reflux disease without esophagitis; F41.9 Anxiety disorder, unspecified; F32.9 Major depressive disorder, single episode, unspecified; F17.210 Nicotine dependence, cigarettes, uncomplicated; Z82.49 Family history of ischemic heart disease and other diseases of the circulatory system
CPT/HCPCS: 36415; 71045; 71275; 80053; 80306; 81000; 84484; 85025; 85379; 93005; 96361; 96374; 96375

== ENCOUNTER → 2019-10-18 | Outpatient (CLI) | payer MEDICAID, OTHER ==
[~2019-10-18] MED LIST changes: +LORA1TAB PO; +METO5TAB75 PO
--- NOTE | 2019-10-18 10:18 | Diagnostic Imaging Report ---
EXAMINATION: Magnetic resonance imaging of the right knee without intravenous contrast DATE: October 18, 2019. COMPARISON: None. INDICATION: 44-year-old male, right knee pain. TECHNIQUE: Multiplanar, multisequence non contrast enhanced MR imaging was accomplished. FINDINGS: MENISCI: The medial meniscus is intact. The lateral meniscus is intact. LIGAMENTS AND TENDONS: The anterior and posterior cruciate ligaments are intact. The medial collateral ligament is intact. The iliotibial band, mid third lateral capsular ligament, fibular collateral ligament, biceps femoris tendon and conjoined tendon are intact. The quadriceps tendon and patella ligament are intact. JOINT: There is very mild thinning of the patellar cartilage with mild superficial cartilage irregularity. There is also irregularity of the cartilage of the femoral trochlea. The medial and lateral compartment cartilage is grossly intact. There is a trace knee joint effusion. There is no identified intra-articular body or prominent synovitis. BONE: There is unremarkable bone marrow signal. Specifically, negative for fracture, osteomyelitis, osteonecrosis, or marrow replacing process. BURSAE AND SOFT TISSUES: There is minimal fluid in the popliteal fossa without sizable Hale's cyst. IMPRESSION: 1. Intact menisci and cruciate ligaments. Additional ligaments and tendons are intact. 2. Mild patellofemoral compartment osteoarthritis with trace knee joint effusion. 3. No acute fracture, bone contusion, or other notable bone marrow signal abnormality. Dictated by: Dictated on workstation # [id number]
== END ==
LOC: RAD 09:05
PROVIDERS: ATTEND Nurse Practitioner Community Health
DX: M17.11 Unilateral primary osteoarthritis, right knee (principal)
CPT/HCPCS: 73721

== ENCOUNTER → 2020-03-27 | Outpatient (CLI) | payer MEDICAID, OTHER | LOC: CARD 07:56 | PROVIDERS: ATTEND Physician Assistant | DX: I11.9 Hypertensive heart disease without heart failure (principal); E66.8 Other obesity; Z82.49 Family history of ischemic heart disease and other diseases of the circulatory system | CPT/HCPCS: 93306 ==

== ENCOUNTER → 2020-05-27 | Outpatient (CLI) | payer MEDICAID ==
--- NOTE | 2020-05-27 16:32 | Diagnostic Imaging Report ---
INDICATION: Dyspnea on exertion PA and lateral chest Heart size and pulmonary vascularity are normal. Lungs are clear. There are no effusions or pneumothoraces. IMPRESSION: Negative chest Dictated by: Dictated on workstation # [id number]
== END ==
LOC: RAD 16:15
PROVIDERS: ATTEND Nurse Practitioner Family
DX: F17.200 Nicotine dependence, unspecified, uncomplicated (principal); R60.0 Localized edema
CPT/HCPCS: 71046

== ENCOUNTER → 2020-06-11 | Outpatient (CLI) | payer MEDICAID ==
[~2020-06-11] MED LIST changes: +RT-ALBUTEROL SULF 2.5 MG/3 ML PRE-MIX VIAL INH ONE
== END ==
LOC: RT 13:00
PROVIDERS: ATTEND Internal Medicine Critical Care Medicine
DX: R06.00 Dyspnea, unspecified (principal); F17.200 Nicotine dependence, unspecified, uncomplicated
CPT/HCPCS: 94060; 94726; 94729

== ENCOUNTER → 2020-07-22 | Outpatient (CLI) | payer MEDICAID ==
[~2020-07-22] MED LIST changes: -RT-ALBUTEROL SULF 2.5 MG/3 ML PRE-MIX VIAL INH ONE
== END ==
LOC: LABNPT 05:22
PROVIDERS: ATTEND Nurse Practitioner Family
DX: Z01.812 Encounter for preprocedural laboratory examination (principal); Z20.828 Contact with and (suspected) exposure to other viral communicable diseases
CPT/HCPCS: 87635

== ENCOUNTER 2020-07-24 19:42 | Outpatient (CLI) | payer MEDICAID | END 2020-07-25 05:45 | disposition home or self-care (01) | LOC: SLEEP 19:42 | PROVIDERS: ATTEND Nurse Practitioner Family | DX: Z01.812 Encounter for preprocedural laboratory examination (principal); G47.33 Obstructive sleep apnea (adult) (pediatric); G47.50 Parasomnia, unspecified; G47.10 Hypersomnia, unspecified; Z20.828 Contact with and (suspected) exposure to other viral communicable diseases | CPT/HCPCS: 95811 ==

== ENCOUNTER 2021-01-17 16:46 | Emergency (ER) | payer MEDICAID ==
[~2021-01-17] VITALS: Ht 182 cm; Wt 154.0 kg
--- NOTE | 2021-01-17 16:51 | ED Upper Extremity ---
General Stated Complaint: PUNCHED METAL PICNIC TABLE/R HAND INJ Source: patient Exam Limitations: no limitations History of Present Illness Date Seen by Provider: January 17, 2021 Time Seen by Provider: 16:49 Initial Comments Punched a metal picnic table earlier this afternoon and now has right hand pain. Onset: just prior to arrival Severity: moderate Pain/Injury Location: right hand Method of Injury: direct blow Modifying Factors: Worse With Movement Allergies and Home Medications Allergies Coded Allergies: No Known Drug Allergies (Unverified , 04/05/12) Home Medications Albuterol Sulfate 8.5 Gm Hfa.aer.ad, 2 PUFF IH Q6H PRN for SHORTNESS OF BREATH, (Reported) Calcium Polycarbophil 625 Mg Tablet, 625 MG PO HS, (Reported) Ciprofloxacin HCl 500 Mg Tablet, 500 MG PO BID Prescribed by: PEDRO SCRUGGS on 07/15/16 1111 Cyclobenzaprine HCl 10 Mg Tablet, 10 MG PO BID, (Reported) Diclofenac Sodium 75 Mg Tablet.dr, 75 MG PO BID, (Reported) Dicyclomine HCl 20 Mg Tablet, 20 MG PO QID PRN for PAIN Prescribed by: ARCHANA OLIVAREZ on 06/23/162121 Famotidine 20 Mg Tablet, 20 MG PO BID Prescribed by: TANK MASON on 07/24/17 1305 Fluoxetine HCl 10 Mg Capsule, 10 MG PO DAILY, (Reported) Hctz/Lisinopril 1 Tab Tablet, 1 TAB PO DAILY, (Reported) Hydrocodone Bit/Acetaminophen 1 Each Tablet, 1 TAB PO Q6H PRN for PAIN, (Reported) Hyoscyamine Sulfate 0.125 Mg Tab.subl, 0.125 MG SL Q6H PRN for SPASMS Prescribed by: TANK MASON on 07/24/17 1305 Lorazepam 0.5 Mg Tablet, 0.5 MG PO HS, (Reported) Lorazepam 1 Mg Tablet, 1 MG PO HS PRN for INSOMNIA Prescribed by: MEIR ROSAS on 05/10/19 1258 Metoclopramide HCl 5 Mg Tablet, 5 MG PO TID Prescribed by: MEIR ROSAS on 05/10/19 1258 Montelukast Sodium 10 Mg Tablet, 10 MG PO HS, (Reported) [place] 3 Polyunsat Fatty Acids 1,000 Mg Cap, 1,000 MG PO DAILY, (Reported) [place] 3 Polyunsat Fatty Acids 1,000 Mg Cap, 2,000 MG PO HS, (Reported) TAKES 2 (1,000MG) CAPSULES Ondansetron HCl 4 Mg Tab, 4 MG PO Q6H PRN for NAUSEA/VOMITING Prescribed by: PEDRO SCRUGGS on 07/15/16 1111 Pantoprazole Sodium 40 Mg Tablet.dr, 40 MG PO DAILY, (Reported) Polyethylene Glycol 3350 17 Gm Powd.pack, 17 GM PO DAILY PRN for CONSTIPATION, (Reported) Sucralfate 1 Gm Tablet, 1 GM PO BID, (Reported) Patient Home Medication List Home Medication List Reviewed: Yes Review of Systems Constitutional: see HPI EENTM: see HPI Respiratory: no symptoms reported Cardiovascular: no symptoms reported Genitourinary: no symptoms reported Musculoskeletal: see HPI Skin: no symptoms reported Psychiatric/Neurological: No Symptoms Reported Past Fhtqjsr-Yjumgq-Ywbisa Hx Patient Social History Type Used: Cigarettes 2nd Hand Smoke Exposure: Yes Recent Hopitalizations: No Immunizations Up To Date Tetanus Booster (TDap): Less than 5yrs PED Vaccines UTD: Yes Date of Pneumonia Vaccine: Jul 05, 2011 Date of Influenza Vaccine: Jun 04, 2011 Seasonal Allergies Seasonal Allergies: Yes Past Medical History Surgeries: No Respiratory: Yes Asthma, COPD Cardiac: Yes Hypertension Neurological: No Reproductive Disorders: No Sexually Transmitted Disease: No HIV/AIDS: No Gastrointestinal: Yes Gastroesophageal Reflux, Pancreatitis Musculoskeletal: No Endocrine: No Loss of Vision: Denies Hearing Impairment: Denies Cancer: No Psychosocial: No Anxiety, Depression Integumentary: No Blood Disorders: No Adverse Reaction/Blood Tranf: No Family Medical History Alzheimer's disease Arthritis Asthma Cataracts Completed stroke Coronary thrombosis Diabetes mellitus Drug abuse Headache disorder Hypertension Myocardial infarction Seizure disorder Severe allergy No Family History of: AIDS Abdominal aortic aneurysm Gage's disease Alcoholism Aphasia Cancer of mouth Cardiovascular disease Colon cancer Congenital disease Congenital heart disease Cystic fibrosis Deafness or hearing loss Dementia Dysphasia Fibrocystic disease of breast Gastroenteritis Glaucoma Hypercholesterolemia Infertility Kidney disease Neoplasm Not obtainable due to adoption Osteoporosis Parkinson's disease Prostate cancer Psychosocial problem Respiratory disorder Thyroid disease Tuberculosis Visual disorder No Pertinent Family Hx Physical Exam Vital Signs Vital Signs - First Documented 01/17/21 17:03 Temp 36.2 Pulse 76 Resp 16 B/P (MAP) 135/77 (96) Pulse Ox 96 O2 Delivery Room Air Capillary Refill : Height, Weight, BMI Height: 6'0" Weight: 291lbs. 0.0oz. 131.964860ov; 39.6 BMI Method:Stated General Appearance: WD/WN, no apparent distress Respiratory: no respiratory distress, no accessory muscle use Shoulder: normal inspection, non-tender Elbow/Forearm: normal inspection, non-tender Hand: Right, swelling (No hematoma abrasion or erythema. There is tenderness to palpation over the fourth and fifth metacarpals but I do not see any significant swelling. He is unable to make a fist fully because of pain in the fourth and fifth metacarpals) Neurologic/Tendon: normal sensation, normal motor functions, normal tendon functions Neurologic/Psychiatric: alert, normal mood/affect, oriented x 3 Skin: normal color, warm/dry Progress/Results/Core Measures Results/Orders My Orders Orders - MEIR ROSAS APRN Hand, Right, 3 Views (01/17/21 16:48) Vital Signs/I&O 01/17/21 17:03 Temp 36.2 Pulse 76 Resp 16 B/P (MAP) 135/77 (96) Pulse Ox 96 O2 Delivery Room Air Departure Communication (Admissions) He reports that he did have a fracture to one of the bones in his hand after punching something years ago that he never had fixed Impression Primary Impression: Contusion of hand Disposition: 01 HOME, SELF-CARE Condition: Stable Departure-Patient Inst. Decision time for Depature: 16:50 Referrals: PEDRO GARCIA (PCP) Primary Care Physician LEX SAHU MD, MICHAEL P MD Patient Instructions: Contusion (DC) Add. Discharge Instructions: 1. Tylenol and ibuprofen for pain control. Return to ER for any concerns. Follow-up with your doctor next week. MEIR ROSAS APRN January 17, 2021 16:51
[2021-01-17 17:03] VITALS: BP 135/77
--- NOTE | 2021-01-17 17:18 | Diagnostic Imaging Report ---
INDICATION: Punched a table. EXAMINATION: Right hand, 01/17/2021. FINDINGS: 3 views of the hand demonstrate an old 5th metacarpal fracture. No acute fracture or dislocation is appreciated. Soft tissues unremarkable. IMPRESSION: Old 5th metacarpal fracture with no acute process appreciated. Dictated by: Dictated on workstation # [id number]
== END 2021-01-17 17:25 | disposition home or self-care (01) ==
LOC: EDUNIT# 16:46 → ER 16:48
DX: S60.221A Contusion of right hand, initial encounter (principal); J44.9 Chronic obstructive pulmonary disease, unspecified; I10 Essential (primary) hypertension; K21.9 Gastro-esophageal reflux disease without esophagitis; Z87.81 Personal history of (healed) traumatic fracture; Z77.22 Contact with and (suspected) exposure to environmental tobacco smoke (acute) (chronic); Z79.899 Other long term (current) drug therapy; W22.8XXA Striking against or struck by other objects, initial encounter
CPT/HCPCS: 73130

== ENCOUNTER 2021-11-29 12:00 | Emergency (ER) | payer MEDICAID ==
[~2021-11-29] VITALS: Ht 180.3 cm; Wt 147.7 kg
[~2021-11-29 12:00] MED LIST changes: +CYCL10TA25 PO; -CYCL10TA9 PO
--- NOTE | 2021-11-29 12:16 | ED Abdominal Pain ---
General Chief Complaint: Abdominal/GI Problems Stated Complaint: ABD PAIN Source of Information: Patient Exam Limitations: No Limitations History of Present Illness Date Seen by Provider: Nov 29, 2021 Time Seen by Provider: 12:02 Initial Comments 46yoM with PMH of IDDM, HTN, CHF, and remote history of gastric ulcers and pancreatitis (quit drinking alcohol many years ago) coming in due to upper/mid abd pain. Started around 11pm last night. Feels like a "knot" in his stomach and comes and goes. No n/v/d, fever, chest pain, SOA, weakness, numbness, hematuria, dysuria, rash, or any other concerns. Says it feels somewhat like pancreatitis. Nothing seems to make it better or worse. Had a normal bowel movement today. Allergies and Home Medications Allergies Coded Allergies: No Known Drug Allergies (Unverified , 04/05/12) Patient Home Medication List Home Medication List Reviewed: Yes Albuterol Sulfate (Proair Hfa) 8.5 Gm Hfa.aer.ad, 2 PUFF IH Q6H PRN for SHORTNESS OF BREATH, (Reported) Entered as Reported by: ANDREW MODI on 01/06/16 08 Calcium Polycarbophil (Fiber) 625 Mg Tablet, 625 MG PO HS, (Reported) Entered as Reported by: ANDREW MODI on 01/06/16 08 Ciprofloxacin HCl (Cipro) 500 Mg Tablet, 500 MG PO BID Prescribed by: PEDRO SCRUGGS on 07/15/16 1111 Cyclobenzaprine HCl (Cyclobenzaprine HCl) 10 Mg Tablet, 10 MG PO BID, (Reported) Entered as Reported by: ANDREW MODI on 01/06/16 08 Diclofenac Sodium (Diclofenac Sodium) 75 Mg Tablet.dr, 75 MG PO BID, (Reported) Entered as Reported by: ANDREW MODI on 01/06/16 08 Dicyclomine HCl (Bentyl) 20 Mg Tablet, 20 MG PO QID PRN for PAIN Prescribed by: ARCHANA OLIVAREZ on 06/23/162121 Famotidine (Pepcid) 20 Mg Tablet, 20 MG PO BID Prescribed by: TANK MASON on 07/24/17 1305 Fluoxetine HCl (Prozac) 10 Mg Capsule, 10 MG PO DAILY, (Reported) Entered as Reported by: ANDREW MODI on 01/06/16 0844 Hctz/Lisinopril (Lisinopril-Hctz 20-25MG Tab) 1 Tab Tablet, 1 TAB PO DAILY, (Reported) Entered as Reported by: DEANN EARLY on 08/12/14 1457 Hydrocodone Bit/Acetaminophen (Lortab 7.5 Mg Tablet) 1 Each Tablet, 1 TAB PO Q6H PRN for PAIN, (Reported) Entered as Reported by: ANDREW MODI on 01/06/16 0847 Hyoscyamine Sulfate (Hyoscyamine Sulfate) 0.125 Mg Tab.subl, 0.125 MG SL Q6H PRN for SPASMS Prescribed by: TANK MASON on 07/24/17 1305 Lorazepam (Lorazepam) 0.5 Mg Tablet, 0.5 MG PO HS, (Reported) Entered as Reported by: ANDREW MODI on 01/06/16 0844 Lorazepam (Lorazepam) 1 Mg Tablet, 1 MG PO HS PRN for INSOMNIA Prescribed by: MEIR ROSAS on 05/10/19 1258 Metoclopramide HCl (Reglan) 5 Mg Tablet, 5 MG PO TID Prescribed by: MEIR ROSAS on 05/10/19 1258 Montelukast Sodium (Montelukast Sodium) 10 Mg Tablet, 10 MG PO HS, (Reported) Entered as Reported by: ANDREW MODI on 08/13/14 0833 Immaculata 3 Polyunsat Fatty Acids (Fish Oil 1,000 mg Capsule) 1,000 Mg Cap, 1,000 MG PO DAILY, (Reported) Entered as Reported by: ANDREW MODI on 01/06/16 0844 Immaculata 3 Polyunsat Fatty Acids (Fish Oil 1,000 mg Capsule) 1,000 Mg Cap, 2,000 MG PO HS, (Reported) Entered as Reported by: ANDREW MODI on 01/06/16 0844 Ondansetron HCl (Zofran) 4 Mg Tab, 4 MG PO Q6H PRN for NAUSEA/VOMITING Prescribed by: PEDRO SCRUGGS on 07/15/16 1111 Pantoprazole Sodium (Pantoprazole Sodium) 40 Mg Tablet.dr, 40 MG PO DAILY, (Reported) Entered as Reported by: DEANN EARLY on 08/12/14 1457 Polyethylene Glycol 3350 (Miralax) 17 Gm Powd.pack, 17 GM PO DAILY PRN for CONSTIPATION, (Reported) Entered as Reported by: ANDREW MODI on 01/06/16843 Sucralfate (Carafate) 1 Gm Tablet, 1 GM PO BID, (Reported) Entered as Reported by: ANDREW MODI on 01/06/1644 Review of Systems Review of Systems Constitutional: No chills, No fever EENTM: No Blurred Vision Respiratory: Denies Cough Cardiovascular: Denies Chest Pain Gastrointestinal: Abdominal Pain; Denies Diarrhea, Denies Nausea, Denies Vomiting Genitourinary: No Symptoms Reported Musculoskeletal: no symptoms reported Skin: no symptoms reported Psychiatric/Neurological: No Symptoms Reported Endocrine: No Symptoms Reported Hematologic/Lymphatic: No Symptoms Reported All Other Systems Reviewed Negative Unless Noted: Yes Past Sxdlikz-Ivilza-Wlqmdn Hx Patient Social History Tobacco Use?: Yes Tobacco type used: Cigarettes Smoking Status: Current Everyday Smoker Substance use?: No (says he quit marijuana years ago) Alcohol Use?: No (quit drinking over 20 years ago) Immunizations Up To Date Tetanus Booster (TDap): Less than 5yrs PED Vaccines UTD: Yes Seasonal Allergies Seasonal Allergies: Yes Past Medical History Surgeries: No Respiratory: Yes Asthma, COPD Cardiac: Yes Hypertension Neurological: No Reproductive Disorders: No Sexually Transmitted Disease: No HIV/AIDS: No Gastrointestinal: Yes Gastroesophageal Reflux, Pancreatitis Musculoskeletal: No Endocrine: No Loss of Vision: Denies Hearing Impairment: Denies Cancer: No Psychosocial: No Anxiety, Depression Integumentary: No Blood Disorders: No Adverse Reaction/Blood Tranf: No Family Medical History Alzheimer's disease Arthritis Asthma Cataracts Completed stroke Coronary thrombosis Diabetes mellitus Drug abuse Headache disorder Hypertension Myocardial infarction Seizure disorder Severe allergy No Family History of: AIDS Abdominal aortic aneurysm [place]'s disease Alcoholism Aphasia Cancer of mouth Cardiovascular disease Colon cancer Congenital disease Congenital heart disease Cystic fibrosis Deafness or hearing loss Dementia Dysphasia Fibrocystic disease of breast Gastroenteritis Glaucoma Hypercholesterolemia Infertility Kidney disease Neoplasm Not obtainable due to adoption Osteoporosis Parkinson's disease Prostate cancer Psychosocial problem Respiratory disorder Thyroid disease Tuberculosis Visual disorder No Pertinent Family Hx Physical Exam Vital Signs Vital Signs - First Documented 11/29/21 12:07 Temp 36.0 Pulse 83 Resp 18 B/P (MAP) 147/86 (106) Pulse Ox 96 O2 Delivery Room Air Capillary Refill : Height/Weight/BMI Height: 6'0" Weight: 291lbs. 0.0oz. 131.166816jt; 46.00 BMI Method:Stated General Appearance: WD/WN, no apparent distress HEENT: PERRL/EOMI, normal ENT inspection, pharynx normal Neck: non-tender, full range of motion, supple, normal inspection Respiratory: chest non-tender, lungs clear, normal breath sounds, no respiratory distress, no accessory muscle use Cardiovascular: regular rate, rhythm, no edema, no murmur Gastrointestinal: normal bowel sounds, non tender, soft; No distended, No guarding, No rebound Extremities: normal range of motion, non-tender, normal inspection, no pedal edema, no calf tenderness, normal capillary refill Back: normal inspection, no CVA tenderness, no vertebral tenderness Neurologic/Psychiatric: no motor/sensory deficits, alert, normal mood/affect Skin: normal color, warm/dry Lymphatic: no adenopathy Progress/Results/Core Measures Results/Orders Lab Results Laboratory Tests Test 11/29/21 12:12 11/29/21 12:56 Range/Units Urine Color YELLOW Urine Clarity CLEAR Urine pH 6.0 5-9 Urine Specific [place] 1.025 H 1.016-1.022 Urine Protein NEGATIVE NEGATIVE Urine Glucose (UA) 2+ H NEGATIVE Urine Ketones TRACE H NEGATIVE Urine Nitrite NEGATIVE NEGATIVE Urine Bilirubin NEGATIVE NEGATIVE Urine Urobilinogen 0.2 < = 1.0 MG/DL Urine Leukocyte Esterase NEGATIVE NEGATIVE Urine RBC (Auto) TRACE-I H NEGATIVE Urine RBC 0-2 /HPF Urine WBC 0-2 /HPF Urine Squamous Epithelial Cells 0-2 /HPF Urine Crystals NONE /LPF Urine Bacteria NEGATIVE /HPF Urine Casts NONE /LPF Urine Mucus SMALL H /LPF Urine Culture Indicated NO Urine Opiates Screen NEGATIVE NEGATIVE Urine Oxycodone Screen NEGATIVE NEGATIVE Urine Methadone Screen NEGATIVE NEGATIVE Urine Propoxyphene Screen NEGATIVE NEGATIVE Urine Barbiturates Screen NEGATIVE NEGATIVE Ur Tricyclic Antidepressants Screen NEGATIVE NEGATIVE Urine Phencyclidine Screen NEGATIVE NEGATIVE Urine Amphetamines Screen NEGATIVE NEGATIVE Urine Methamphetamines Screen NEGATIVE NEGATIVE Urine Benzodiazepines Screen NEGATIVE NEGATIVE Urine Cocaine Screen NEGATIVE NEGATIVE Urine Cannabinoids Screen NEGATIVE NEGATIVE White Blood Count 9.3 4.3-11.0 10^3/uL Red Blood Count 5.55 H 4.30-5.52 10^6/uL Hemoglobin 16.1 13.3-17.7 g/dL Hematocrit 49 40-54 % Mean Corpuscular Volume 89 80-99 fL Mean Corpuscular Hemoglobin 29 25-34 pg Mean Corpuscular Hemoglobin Concent 33 32-36 g/dL Red Cell Distribution Width 13.4 10.0-14.5 % Platelet Count 325 130-400 10^3/uL Mean Platelet Volume 9.9 9.0-12.2 fL Immature Granulocyte % (Auto) 0 % Neutrophils (%) (Auto) 59 42-75 % Lymphocytes (%) (Auto) 31 12-44 % Monocytes (%) (Auto) 8 0-12 % Eosinophils (%) (Auto) 2 0-10 % Basophils (%) (Auto) 0 0-10 % Neutrophils # (Auto) 5.4 1.8-7.8 10^3/uL Lymphocytes # (Auto) 2.9 1.0-4.0 10^3/uL Monocytes # (Auto) 0.7 0.0-1.0 10^3/uL Eosinophils # (Auto) 0.2 0.0-0.3 10^3/uL Basophils # (Auto) 0.0 0.0-0.1 10^3/uL Immature Granulocyte # (Auto) 0.0 0.0-0.1 10^3/uL Prothrombin Time 13.0 12.2-14.7 SEC INR Comment 1.0 0.8-1.4 Sodium Level 139 135-145 MMOL/L Potassium Level 4.0 3.6-5.0 MMOL/L Chloride Level 100 98-107 MMOL/L Carbon Dioxide Level 25 21-32 MMOL/L Anion Gap 14 5-14 MMOL/L Blood Urea Nitrogen 13 7-18 MG/DL Creatinine 0.67 0.60-1.30 MG/DL Estimat Glomerular Filtration Rate 116 BUN/Creatinine Ratio 19 Glucose Level 116 H 70-105 MG/DL Calcium Level 9.5 8.5-10.1 MG/DL Corrected Calcium 9.4 8.5-10.1 MG/DL Total Bilirubin 0.4 0.1-1.0 MG/DL Aspartate Amino Transf (AST/SGOT) 28 5-34 U/L Alanine Aminotransferase (ALT/SGPT) 35 0-55 U/L Alkaline Phosphatase 75 40-136 U/L Total Protein 7.3 6.4-8.2 GM/DL Albumin 4.1 3.2-4.5 GM/DL Lipase 45 8-78 U/L My Orders Orders - VINITA MARCOS MD Comprehensive Metabolic Panel (11/29/21 12:11) Lipase (11/29/21 12:11) Ua Culture If Indicated (11/29/21 12:11) Ed Iv/Invasive Line Start (11/29/21 12:11) Cbc With Automated Diff (11/29/21 12:11) Drug Screen Stat (Urine) (11/29/21 12:11) Protime With Inr (11/29/21 12:11) Acetaminophen Tablet (Tylenol Tablet) (11/29/21 12:45) Lidocaine 2% Viscous 15 Ml (Xylocaine Vi (11/29/21 12:45) Antacid Suspension (Mylanta Suspension (11/29/21 12:45) Hyoscyamine Sl Tablet (Levsin Sl Tablet) (11/29/21 12:45) Ct Abdomen/Pelvis W (11/29/21 12:41) Iohexol Injection (Omnipaque 350 Mg/Ml 1 (11/29/21 12:45) Received Contrast (Hold Metformin- Contr (11/29/21 12:45) Ns (Ivpb) (Sodium Chloride 0.9% Ivpb Bag (11/29/21 12:45) Medications Given in ED Current Medications Medications Dose Ordered Sig/Tyler Route Start Time Stop Time Status Last Admin Dose Admin Acetaminophen 1,000 mg ONCE ONCE PO 11/29/21 12:45 11/29/21 12:46 DC 11/29/21 13:01 1,000 MG Al Hydrox/Mg Hydrox/Simethicone 30 ml ONCE ONCE PO 11/29/21 12:45 11/29/21 12:46 DC 11/29/21 13:00 30 ML Hyoscyamine Sulfate 0.125 mg ONCE ONCE SL 11/29/21 12:45 11/29/21 12:46 DC 11/29/21 13:01 0.125 MG Iohexol 100 ml ONCE ONCE IV 11/29/21 12:45 11/29/21 12:46 DC 11/29/21 13:30 100 ML Lidocaine HCl 15 ml ONCE ONCE PO 11/29/21 12:45 11/29/21 12:46 DC 11/29/21 13:00 15 ML Sodium Chloride 100 ml ONCE ONCE IV 11/29/21 12:45 11/29/21 12:46 DC 11/29/21 13:30 100 ML Vital Signs/I&O 11/29/21 11/29/21 12:07 13:01 Temp 36.0 36.0 Pulse 83 Resp 18 B/P (MAP) 147/86 (106) Pulse Ox 96 O2 Delivery Room Air Progress Progress Note : Progress Note 46-year-old male with above history coming in due to abdominal pain. ABCs were intact and vitals were stable on presentation. Physical exam with some abdominal tenderness but no signs of peritonitis. He is pointing out the areas that he feels like he has some knots in his abdomen where he is having pain. This truly just feels like adipose tissue to me I did a [id number] ultrasound overlooking the area and it does not fact look like rolls of adipose tissue. Basic labs obtained and an IV was placed with no significant abnormalities. CT abdomen pelvis also ordered and there are no significant abnormalities, specifically his appendix also looks normal. He was given Tylenol as well as a GI cocktail for pain. Pain has somewhat improved. I believe he is stable for discharge with outpatient follow-up. He was sent home with strict return precautions. This could be a gastritis type picture. I will have him follow-up with his regular doctor for potential GI follow-up Diagnostic Imaging Diagonstic Imaging: CT Plain Films/CT/US/NM/MRI: abdomen Comments [facility]. [place], [place] NAME: TATY [facility] REC#: [id number] PT STATUS: REG ER : 1975 PHYSICIAN: VINITA MARCOS MD ADMIT DATE: 11/29/21/ER FS Draft Date of Exam:11/29/21 CT ABDOMEN/PELVIS W PROCEDURE: CT abdomen and pelvis with contrast. TECHNIQUE: Multiple contiguous axial images were obtained through the abdomen and pelvis after administration of intravenous contrast. Auto Exposure Controls were utilized during the CT exam to meet ALARA standards for radiation dose reduction. All CT scans use one or more of the following dose optimizing techniques: automated exposure control, MA and/or KvP adjustment based on patient size and exam type or iterative reconstruction. INDICATION: Abdominal pain. COMPARISON: 07/24/2017. FINDINGS: Mildly prominent interstitial markings are seen in the lung bases which may represent mild pneumonitis or fibrosis. There is mild low density throughout the liver. No focal hepatic, gallbladder, pancreatic, adrenal gland or splenic abnormality is seen. Kidneys are also unremarkable in appearance. There is no evidence of free fluid within the abdomen or pelvis. No focal inflammation is identified. There is no evidence of pathologically enlarged adenopathy. Unopacified urinary bladder is unremarkable. Moderate degenerative disc disease is present at the L5-S1 level. IMPRESSION: No acute abnormality is detected. Dictated on workstation # [id number] Dict: 11/29/21 1341 Trans: 11/29/21 1352 [id number] Interpreted by: SOPHIE SHIRLEY MD Electronically signed by: Departure Impression Primary Impression: Upper abdominal pain Disposition: HOME, SELF-CARE Condition: Stable Departure-Patient Inst. Decision time for Depature: 14:13 Referrals: JOSEPHINE BRANCH (PCP) Primary Care Physician [facility] [place]) Primary Care Physician CYRUS LINDO DO Patient Instructions: Abdominal Pain, Adult ED Add. Discharge Instructions: Please follow-up with your regular doctor if pain continues. You can call Dr. Lindo's office to schedule an appointment as well. You may need an upper GI scope to see if you have any ulcers in your stomach currently. I recommend buying Maalox over the counter and taking it with some tylenol 1000mg when you have pain. Work/School Note: Work Release Form Date Seen in the Emergency Department: Nov 29, 2021 Return to Work: Nov 30, 2021 Restrictions: No Restrictions VINITA MARCOS MD Nov 29, 2021 12:16
[2021-11-29 12:31] LABS: BILIRUBIN,URINE NEGATIVE (NEGATIVE); CLARITY,URINE CLEAR; COLOR,URINE YELLOW; GLUCOSE, URINE (UA) 2+ (NEGATIVE); KETONES,URINE TRACE (NEGATIVE); LEUKOCYTE ESTERASE ,URINE NEGATIVE (NEGATIVE); NITRITE,URINE NEGATIVE (NEGATIVE); PROTEIN,URINE NEGATIVE (NEGATIVE)
[2021-11-29] MEDS ORDERED: LIDOCAINE 2% VISCOUS 15 ML UDC PO ONE (12:45)
[2021-11-29] MEDS ORDERED: HYOSCYAMINE 0.125 MG (LEVSIN) TAB SL ONE (12:45)
[2021-11-29] MEDS ORDERED: ACETAMINOPHEN 500 MG TAB (TYLENOL) PO ONE (12:45)
[2021-11-29] MEDS ORDERED: IOHEXOL 350 MG/ML 100 ML (OMNIPAQUE 350) VIAL IV ONE (12:45)
[2021-11-29] MEDS ORDERED: HOLD METFORMIN - RECEIVED CONTRAST 20 ML VIAL IV SCH (12:45)
[2021-11-29] MEDS ORDERED: NS 100 ML (IVPB) BAG IV ONE (12:45)
[2021-11-29] MEDS ORDERED: ANTACID SUSP 30 ML UDC (MYLANTA) PO ONE (12:45)
[2021-11-29 12:57] LABS: BASOPHILS % (AUTO) 0 % (0-10); EOSINOPHILS # (AUTO) 0.2 10^3/uL (0.0-0.3); EOSINOPHILS % (AUTO) 2 % (0-10); HEMATOCRIT 49 % (40-54); HEMOGLOBIN 16.1 g/dL (13.3-17.7); LYMPHOCYTES # (AUTO) 2.9 10^3/uL (1.0-4.0); LYMPHOCYTES % (AUTO) 31 % (12-44); MEAN CORPUSCULAR HEMOGLOBIN 29 pg (25-34); MEAN CORPUSCULAR HGB CONC 33 g/dL (32-36); MEAN CORPUSCULAR VOLUME 89 fL (80-99); MEAN PLATELET VOLUME 9.9 fL (9.0-12.2); MONOCYTES # (AUTO) 0.7 10^3/uL (0.0-1.0); MONOCYTES % (AUTO) 8 % (0-12); NEUTROPHILS # (AUTO) 5.4 10^3/uL (1.8-7.8); NEUTROPHILS % (AUTO) 59 % (42-75); PLATELET COUNT 325 10^3/uL (130-400); WHITE BLOOD COUNT 9.3 10^3/uL (4.3-11.0)
[2021-11-29 13:00] LABS: BACTERIA,URINE NEGATIVE /HPF; RBC,URINE 0-2 /HPF; SQUAMOUS EPITHELIAL CELL,UR 0-2 /HPF; WBC,URINE 0-2 /HPF
[2021-11-29 13:07] LABS: AMPHETAMINE SCREEN, URINE NEGATIVE (NEGATIVE); BARBITURATE SCREEN URINE NEGATIVE (NEGATIVE); BENZODIAZEPINES SCREEN URINE NEGATIVE (NEGATIVE); CANNABINOID SCREEN, URINE NEGATIVE (NEGATIVE); COCAINE SCREEN URINE NEGATIVE (NEGATIVE); METHADONE STAT NEGATIVE (NEGATIVE); METHAMPHETAMINE SCREEN URINE S NEGATIVE (NEGATIVE); OPIATE SCREEN URINE NEGATIVE (NEGATIVE); OXYCODONE STAT NEGATIVE (NEGATIVE); PROPOXYPHENE STAT NEGATIVE (NEGATIVE); TRICYCLIC ANTIDEPRESSANTS SCRE NEGATIVE (NEGATIVE)
[2021-11-29 13:20] LABS: CALCIUM 9.5 MG/DL (8.5-10.1); CREATININE SERUM 0.67 MG/DL (0.60-1.30)
[2021-11-29 13:21] LABS: ALBUMIN 4.1 GM/DL (3.2-4.5); BILIRUBIN,TOTAL 0.4 MG/DL (0.1-1.0); TOTAL PROTEIN 7.3 GM/DL (6.4-8.2)
--- NOTE | 2021-11-29 13:53 | Diagnostic Imaging Report ---
PROCEDURE: CT abdomen and pelvis with contrast. TECHNIQUE: Multiple contiguous axial images were obtained through the abdomen and pelvis after administration of intravenous contrast. Auto Exposure Controls were utilized during the CT exam to meet ALARA standards for radiation dose reduction. All CT scans use one or more of the following dose optimizing techniques: automated exposure control, MA and/or KvP adjustment based on patient size and exam type or iterative reconstruction. INDICATION: Abdominal pain. COMPARISON: 07/24/2017. FINDINGS: Mildly prominent interstitial markings are seen in the lung bases which may represent mild pneumonitis or fibrosis. There is mild low density throughout the liver. No focal hepatic, gallbladder, pancreatic, adrenal gland or splenic abnormality is seen. Kidneys are also unremarkable in appearance. There is no evidence of free fluid within the abdomen or pelvis. No focal inflammation is identified. There is no evidence of pathologically enlarged adenopathy. Unopacified urinary bladder is unremarkable. Moderate degenerative disc disease is present at the L5-S1 level. IMPRESSION: No acute abnormality is detected. Dictated by: Dictated on workstation # [id number]
[2021-11-29 14:20] VITALS: BP 143/82
== END 2021-11-29 14:20 | disposition home or self-care (01) ==
LOC: EDUNIT# 12:00 → ER FS 12:01
DX: R10.10 Upper abdominal pain, unspecified (principal); F17.210 Nicotine dependence, cigarettes, uncomplicated
CPT/HCPCS: 36415; 74177; 80053; 80306; 81000; 83690; 85025; 85610; Q9967

== ENCOUNTER 2022-01-20 18:04 | Emergency (ER) | payer MEDICAID ==
[~2022-01-20] VITALS: Ht 180 cm; Wt 147.0 kg
[2022-01-20] MEDS ORDERED: ONDANSETRON 4 MG/2 ML (SDV) Z0FRAN IVP ONE (18:15)
[2022-01-20] MEDS ORDERED: NS IV 500 ML 500 ML IV ONE (18:15)
--- NOTE | 2022-01-20 18:18 | ED GI ---
General Chief Complaint: Abdominal/GI Problems Stated Complaint: GEN WEAKNESS Source of Information: Patient, EMS Exam Limitations: No Limitations History of Present Illness Date Seen by Provider: January 20, 2022 Time Seen by Provider: 18:09 Initial Comments 46-year-old male with past medical history of diabetes, CHF, hypertension coming in via EMS from home due to 1 day of nonbloody nonbilious vomiting and nonbloody diarrhea. Been going on since last night. He believes he vomited least 3 times today and has had diarrhea numerous times. Is unsure if he has been around anyone sick. Has never had COVID and is not vaccinated. Has not had any medications for this as of yet today. He describes some vague chest discomfort last night but none right now. Denies any fever that he knows of, abdominal pain, current chest pain, current shortness of breath, focal weakness or numbness, headache, vision changes, or any other concerns. EMS reports his glucose was around 150 and vitals were okay. Allergies and Home Medications Allergies Coded Allergies: No Known Drug Allergies (Unverified , 04/05/12) Patient Home Medication List Home Medication List Reviewed: Yes Albuterol Sulfate (Proair Hfa) 8.5 Gm Hfa.aer.ad, 2 PUFF IH Q6H PRN for SHORTNESS OF BREATH, (Reported) Entered as Reported by: ANDREW MODI on 01/06/16 08 Calcium Polycarbophil (Fiber) 625 Mg Tablet, 625 MG PO HS, (Reported) Entered as Reported by: ANDREW MODI on 01/06/16 0844 Ciprofloxacin HCl (Cipro) 500 Mg Tablet, 500 MG PO BID Prescribed by: PEDRO SCRUGGS on 07/15/16 1111 Cyclobenzaprine HCl (Cyclobenzaprine HCl) 10 Mg Tablet, 10 MG PO BID, (Reported) Entered as Reported by: ANDREW MODI on 01/06/16 08 Diclofenac Sodium (Diclofenac Sodium) 75 Mg Tablet.dr, 75 MG PO BID, (Reported) Entered as Reported by: ANDREW MODI on 01/06/16 0844 Dicyclomine HCl (Bentyl) 20 Mg Tablet, 20 MG PO QID PRN for PAIN Prescribed by: ARCHANA OLIVAREZ on 06/23/162121 Famotidine (Pepcid) 20 Mg Tablet, 20 MG PO BID Prescribed by: TANK MASON on 07/24/17 1305 Fluoxetine HCl (Prozac) 10 Mg Capsule, 10 MG PO DAILY, (Reported) Entered as Reported by: ANDREW MODI on 01/06/16 0844 Hctz/Lisinopril (Lisinopril-Hctz 20-25MG Tab) 1 Tab Tablet, 1 TAB PO DAILY, (Reported) Entered as Reported by: DEANN EARLY on 08/12/14 1457 Hydrocodone Bit/Acetaminophen (Lortab 7.5 Mg Tablet) 1 Each Tablet, 1 TAB PO Q6H PRN for PAIN, (Reported) Entered as Reported by: ANDREW MODI on 01/06/16 0847 Hyoscyamine Sulfate (Hyoscyamine Sulfate) 0.125 Mg Tab.subl, 0.125 MG SL Q6H PRN for SPASMS Prescribed by: TANK MASON on 07/24/17 1305 Lorazepam (Lorazepam) 0.5 Mg Tablet, 0.5 MG PO HS, (Reported) Entered as Reported by: ANDREW MODI on 01/06/16 0844 Lorazepam (Lorazepam) 1 Mg Tablet, 1 MG PO HS PRN for INSOMNIA Prescribed by: MEIR ROSAS on 05/10/19 1258 Metoclopramide HCl (Reglan) 5 Mg Tablet, 5 MG PO TID Prescribed by: MEIR ROSAS on 05/10/19 1258 Montelukast Sodium (Montelukast Sodium) 10 Mg Tablet, 10 MG PO HS, (Reported) Entered as Reported by: ANDREW MODI on 08/13/14 0833 [place] 3 Polyunsat Fatty Acids (Fish Oil 1,000 mg Capsule) 1,000 Mg Cap, 1,000 MG PO DAILY, (Reported) Entered as Reported by: ANDREW MODI on 01/06/16 0844 [place] 3 Polyunsat Fatty Acids (Fish Oil 1,000 mg Capsule) 1,000 Mg Cap, 2,000 MG PO HS, (Reported) Entered as Reported by: ANDREW MODI on 01/06/16 0844 Ondansetron HCl (Zofran) 4 Mg Tab, 4 MG PO Q6H PRN for NAUSEA/VOMITING Prescribed by: PEDRO SCRUGGS on 07/15/16 1111 Pantoprazole Sodium (Pantoprazole Sodium) 40 Mg Tablet.dr, 40 MG PO DAILY, (Reported) Entered as Reported by: DEANN EARLY on 08/12/14 1457 Polyethylene Glycol 3350 (Miralax) 17 Gm Powd.pack, 17 GM PO DAILY PRN for CONSTIPATION, (Reported) Entered as Reported by: ANDREW MODI on 01/06/16 0888 Sucralfate (Carafate) 1 Gm Tablet, 1 GM PO BID, (Reported) Entered as Reported by: ANDREW MODI on 01/06/16 0844 Review of Systems Review of Systems Constitutional: No chills, No fever EENTM: No Blurred Vision Respiratory: Denies Cough, Denies Shortness of Air Cardiovascular: Denies Chest Pain Gastrointestinal: Denies Abdominal Pain; Diarrhea, Nausea, Vomiting Genitourinary: No Symptoms Reported Musculoskeletal: no symptoms reported Skin: no symptoms reported Psychiatric/Neurological: No Symptoms Reported Endocrine: No Symptoms Reported Hematologic/Lymphatic: No Symptoms Reported All Other Systems Reviewed Negative Unless Noted: Yes Past Zduuatu-Aixymb-Vrynnf Hx Patient Social History Tobacco Use?: Yes Tobacco type used: Cigarettes Smoking Status: Current Everyday Smoker Use of E-Cig and/or Vaping dev: No Substance use?: No Alcohol Use?: No Pt feels they are or have been: No Immunizations Up To Date Tetanus Booster (TDap): Less than 5yrs PED Vaccines UTD: Yes Seasonal Allergies Seasonal Allergies: Yes Past Medical History Surgery/Hospitalization HX: DM, HTN, Asthma, CHF, HERNIA, Surgeries: No Respiratory: Yes Asthma, COPD Cardiac: Yes Hypertension Neurological: No Reproductive Disorders: No Sexually Transmitted Disease: No HIV/AIDS: No Gastrointestinal: Yes Gastroesophageal Reflux, Pancreatitis Musculoskeletal: No Endocrine: No Loss of Vision: Denies Hearing Impairment: Denies Cancer: No Psychosocial: No Anxiety, Depression Integumentary: No Blood Disorders: No Adverse Reaction/Blood Tranf: No Family Medical History Alzheimer's disease Arthritis Asthma Cataracts Completed stroke Coronary thrombosis Diabetes mellitus Drug abuse Headache disorder Hypertension Myocardial infarction Seizure disorder Severe allergy No Family History of: AIDS Abdominal aortic aneurysm Alejandro's disease Alcoholism Aphasia Cancer of mouth Cardiovascular disease Colon cancer Congenital disease Congenital heart disease Cystic fibrosis Deafness or hearing loss Dementia Dysphasia Fibrocystic disease of breast Gastroenteritis Glaucoma Hypercholesterolemia Infertility Kidney disease Neoplasm Not obtainable due to adoption Osteoporosis Parkinson's disease Prostate cancer Psychosocial problem Respiratory disorder Thyroid disease Tuberculosis Visual disorder No Pertinent Family Hx Physical Exam Vital Signs Vital Signs - First Documented 01/20/22 18:04 Temp 36.6 Pulse 84 Resp 18 B/P (MAP) 156/95 (115) Pulse Ox 96 O2 Delivery Room Air Capillary Refill : Height/Weight/BMI Height: 6'0" Weight: 291lbs. 0.0oz. 131.804205gu; 45.00 BMI Method:Stated General Appearance: WD/WN, no apparent distress HEENT: PERRL/EOMI, normal ENT inspection, pharynx normal Neck: non-tender, full range of motion, supple, normal inspection Respiratory: chest non-tender, lungs clear, normal breath sounds, no respiratory distress, no accessory muscle use Cardiovascular: regular rate, rhythm, no edema, no murmur Gastrointestinal: normal bowel sounds, non tender, soft; No distended, No guarding, No rebound; other (Protuberant but soft abdomen) Extremities: normal range of motion, non-tender, normal inspection, no pedal edema, no calf tenderness, normal capillary refill Back: normal inspection, no CVA tenderness Neurologic/Psychiatric: no motor/sensory deficits, alert, normal mood/affect Skin: normal color, warm/dry Lymphatic: no adenopathy Progress/Results/Core Measures Results/Orders Lab Results Laboratory Tests Test 01/20/22 18:10 Range/Units White Blood Count 12.2 H 4.3-11.0 10^3/uL Red Blood Count 5.92 H 4.30-5.52 10^6/uL Hemoglobin 17.3 13.3-17.7 g/dL Hematocrit 50 40-54 % Mean Corpuscular Volume 85 80-99 fL Mean Corpuscular Hemoglobin 29 25-34 pg Mean Corpuscular Hemoglobin Concent 34 32-36 g/dL Red Cell Distribution Width 13.3 10.0-14.5 % Platelet Count 254 130-400 10^3/uL Mean Platelet Volume 10.2 9.0-12.2 fL Immature Granulocyte % (Auto) 0 % Neutrophils (%) (Auto) 71 42-75 % Lymphocytes (%) (Auto) 18 12-44 % Monocytes (%) (Auto) 6 0-12 % Eosinophils (%) (Auto) 5 0-10 % Basophils (%) (Auto) 0 0-10 % Neutrophils # (Auto) 8.6 H 1.8-7.8 10^3/uL Lymphocytes # (Auto) 2.2 1.0-4.0 10^3/uL Monocytes # (Auto) 0.7 0.0-1.0 10^3/uL Eosinophils # (Auto) 0.6 H 0.0-0.3 10^3/uL Basophils # (Auto) 0.0 0.0-0.1 10^3/uL Immature Granulocyte # (Auto) 0.0 0.0-0.1 10^3/uL Sodium Level 135 135-145 MMOL/L Potassium Level 4.0 3.6-5.0 MMOL/L Chloride Level 99 98-107 MMOL/L Carbon Dioxide Level 21 21-32 MMOL/L Anion Gap 15 H 5-14 MMOL/L Blood Urea Nitrogen 15 7-18 MG/DL Creatinine 0.73 0.60-1.30 MG/DL Estimat Glomerular Filtration Rate 113 BUN/Creatinine Ratio 21 Glucose Level 136 H 70-105 MG/DL Calcium Level 9.0 8.5-10.1 MG/DL Corrected Calcium 9.1 8.5-10.1 MG/DL Total Bilirubin 0.4 0.1-1.0 MG/DL Aspartate Amino Transf (AST/SGOT) 19 5-34 U/L Alanine Aminotransferase (ALT/SGPT) 26 0-55 U/L Alkaline Phosphatase 117 40-136 U/L Troponin I < 0.30 <0.30 NG/ML Total Protein 7.2 6.4-8.2 GM/DL Albumin 3.9 3.2-4.5 GM/DL Lipase 14 8-78 U/L My Orders Orders - VINITA MARCOS MD Cbc With Automated Diff (01/20/22 18:11) Comprehensive Metabolic Panel (01/20/22 18:11) Lipase (01/20/22 18:11) Troponin I Fs (01/20/22 18:11) Influenza A & B Antigens (01/20/22 18:11) Ed Iv/Invasive Line Start (01/20/22 18:11) Ekg Tracing (01/20/22 18:11) Covid 19 Inhouse Test (01/20/22 18:11) Chest 1 View Ap/Pa Only (01/20/22 18:11) Ns Iv 500 Ml (Sodium Chloride 0.9%) (01/20/22 18:15) Ondansetron Injection (Zofran Injectio (01/20/22 18:15) Medications Given in ED Current Medications Medications Dose Ordered Sig/Tyler Route Start Time Stop Time Status Last Admin Dose Admin Ondansetron HCl 4 mg ONCE ONCE IVP 01/20/22 18:15 01/20/22 18:16 DC 01/20/22 18:27 4 MG Sodium Chloride 500 ml @ 0 mls/hr Q0M ONCE IV 01/20/22 18:15 01/20/22 18:16 DC 01/20/22 18:26 0 MLS/HR Vital Signs/I&O 01/20/22 18:04 Temp 36.6 Pulse 84 Resp 18 B/P (MAP) 156/95 (115) Pulse Ox 96 O2 Delivery Room Air Progress Progress Note : Progress Note 46-year-old male with above history coming in due to vomiting and diarrhea. ABCs were intact and vitals were stable on presentation. Physical exam reassuring with no focal abnormalities including a soft and nontender abdomen. IV was placed and basic labs were obtained including cardiac biomarkers given the vague chest discomfort last night. EKG without acute ischemic changes. He was given a gentle bolus of IV fluids as well as Zofran for his symptoms. COVID and flu testing sent. Labs reassuring including normal electrolytes and negative troponin. Chest x- ray with no acute abnormalities. COVID test pending and will come back likely tomorrow. Patient is feeling better after the IV fluids. I believe he stable for discharge with outpatient follow-up. He was sent home with strict return precautions Initial ECG Impression Date: January 20, 2022 Initial ECG Impression Time: 18:09 Initial ECG Rate: 83 Initial ECG Rhythm: Normal Sinus Comment Narrow QRS, normal axis, no significant ST changes or T wave abnormalities, appears almost identical to prior EKG from 05/2019 Diagnostic Imaging Diagonstic Imaging: Xray Plain Films/CT/US/NM/MRI: chest Comments [facility]. [place], [place] NAME: TATY FAUST [facility] REC#: [id number] PT STATUS: REG ER : 1975 PHYSICIAN: VINITA MARCOS MD ADMIT DATE: 01/20/22/ER FS Draft Date of Exam:01/20/22 CHEST 1 VIEW AP/PA ONLY EXAMINATION: Chest 1 view. HISTORY: Chest pain. Weakness. COMPARISON: 05/27/2020. FINDINGS: The lung volumes are normal. No focal consolidation is seen. No large pleural effusion or pneumothorax is seen. The cardiomediastinal silhouette is normal in size and contour. No acute osseous abnormality is seen. IMPRESSION: No acute pleuroparenchymal process. Dictated on workstation # [id number] Dict: 01/20/22 1829 Trans: 01/20/22 [address] [facility] [id number] Interpreted by: BALAJI KIRKLAND DO Electronically signed by: Departure Impression Primary Impression: Vomiting and diarrhea Additional Impression: Person under investigation for COVID-19 Disposition: 01 HOME, SELF-CARE Condition: Improved Departure-Patient Inst. Decision time for Depature: 19:16 Referrals: JOSEPHINE BRANCH (PCP) Primary Care Physician [facility] (Family) Primary Care Physician Patient Instructions: Viral Gastroenteritis Add. Discharge Instructions: You most likely have a virus that is causing vomiting and diarrhea. This typically last 1 to 3 days with most people. Focus on sips of fluids frequently to try to stay hydrated. I sent nausea medicines to your pharmacy you can picker / packer in the morning. Take ibuprofen and/or Tylenol as needed for fever or pain. Follow-up with your regular doctor in the next 3 to 5 days if things are not improving. If your COVID test is positive, someone will call you tomorrow. Scripts Ondansetron (Ondansetron Odt) 4 Mg Tab.rapdis 4 MG PO Q6H PRN for NAUSEA/VOMITING-1ST LINE for 5 Days, #20 TAB Prov: VINITA MARCOS MD 01/20/22 VINITA MARCOS MD January 20, 2022 18:17
[2022-01-20 18:26] LABS: BASOPHILS % (AUTO) 0 % (0-10); EOSINOPHILS # (AUTO) 0.6 10^3/uL (0.0-0.3); EOSINOPHILS % (AUTO) 5 % (0-10); HEMATOCRIT 50 % (40-54); HEMOGLOBIN 17.3 g/dL (13.3-17.7); LYMPHOCYTES # (AUTO) 2.2 10^3/uL (1.0-4.0); LYMPHOCYTES % (AUTO) 18 % (12-44); MEAN CORPUSCULAR HEMOGLOBIN 29 pg (25-34); MEAN CORPUSCULAR HGB CONC 34 g/dL (32-36); MEAN CORPUSCULAR VOLUME 85 fL (80-99); MEAN PLATELET VOLUME 10.2 fL (9.0-12.2); MONOCYTES # (AUTO) 0.7 10^3/uL (0.0-1.0); MONOCYTES % (AUTO) 6 % (0-12); NEUTROPHILS # (AUTO) 8.6 10^3/uL (1.8-7.8); NEUTROPHILS % (AUTO) 71 % (42-75); PLATELET COUNT 254 10^3/uL (130-400); WHITE BLOOD COUNT 12.2 10^3/uL (4.3-11.0)
--- NOTE | 2022-01-20 18:32 | Diagnostic Imaging Report ---
EXAMINATION: Chest 1 view. HISTORY: Chest pain. Weakness. COMPARISON: 05/27/2020. FINDINGS: The lung volumes are normal. No focal consolidation is seen. No large pleural effusion or pneumothorax is seen. The cardiomediastinal silhouette is normal in size and contour. No acute osseous abnormality is seen. IMPRESSION: No acute pleuroparenchymal process. Dictated by: Dictated on workstation # [id number]
[2022-01-20 19:05] LABS: ALANINE AMINOTRANSFERASE 26 U/L (0-55); ALBUMIN 3.9 GM/DL (3.2-4.5); ALKALINE PHOSPHATASE 117 U/L (40-136); BILIRUBIN,TOTAL 0.4 MG/DL (0.1-1.0); BUN/CREATININE RATIO 21; CARBON DIOXIDE 21 MMOL/L (21-32); CHLORIDE 99 MMOL/L (98-107); CREATININE SERUM 0.73 MG/DL (0.60-1.30); GFR ESTIMATED 113; GLUCOSE 136 MG/DL (70-105); SODIUM 135 MMOL/L (135-145); TOTAL PROTEIN 7.2 GM/DL (6.4-8.2)
[2022-01-20 19:06] LABS: LIPASE 14 U/L (8-78)
[2022-01-20] MEDS ORDERED: ONDA4TAB11 PO (19:17)
[2022-01-20 19:19] VITALS: BP 133/46
== END 2022-01-20 19:23 | disposition home or self-care (01) ==
LOC: ER FS 18:04
DX: R11.2 Nausea with vomiting, unspecified (principal); R19.7 Diarrhea, unspecified; F17.210 Nicotine dependence, cigarettes, uncomplicated; Z20.822 Contact with and (suspected) exposure to COVID-19; Z28.310 Unvaccinated for COVID-19
CPT/HCPCS: 36415; 71045; 80053; 83690; 84484; 85025; 87636; 87804; 93005

== ENCOUNTER → 2022-08-23 | Outpatient (CLI) | payer MEDICAID ==
[~2022-08-23] MED LIST changes: +ALBU8.5H6 IH; +ONDA4TAB11 PO; -RT-ALBUINH IH
--- NOTE | 2022-08-23 12:24 | Diagnostic Imaging Report ---
INDICATION: Shortness of breath. COMPARISON: 05/27/2020. FINDINGS: The heart size is within normal limits. There is, however, some borderline central vascular congestion. The perihilar interstitial markings are prominent and may reflect some mild perihilar interstitial edema but could be seen in the setting of bronchitis or a viral pattern. No alveolar consolidation, effusion, or pneumothorax. IMPRESSION: There are some streaky perihilar interstitial opacities as discussed above. No consolidating pneumonia or pleural pathology and no overt failure pattern. Dictated by: Dictated on workstation # [id number]
== END ==
LOC: RAD FS 11:58
DX: R09.89 Other specified symptoms and signs involving the circulatory and respiratory systems (principal)
CPT/HCPCS: 71046

== ENCOUNTER 2022-08-29 14:23 | Emergency (ER) | payer MEDICAID ==
[~2022-08-29] VITALS: Ht 180 cm; Wt 135.0 kg
--- NOTE | 2022-08-29 15:15 | ED Abdominal Pain ---
General Chief Complaint: Abdominal/GI Problems Stated Complaint: EPIGASTRIC PAIN Nursing Triage Note: EPIGASTRIC PAIN. HASNT SLEPT IN 3 DAYS D/T THE PAIN. NORMAL BM THIS AM. Source of Information: Patient History of Present Illness Date Seen by Provider: Aug 29, 2022 Time Seen by Provider: 14:55 Initial Comments 46-year-old male patient with history of COPD, hypertension, CHF, diabetes mellitus, GERD, pancreatitis sent from primary care physician office because of abdominal pain. Patient complaining of epigastric pain as a constant sharp pain with radiation to his back for the last 3 days and rated his pain 8/10. Patient states he was not able to sleep because of pain. Patient had the same episodes of pain with previous episodes of pancreatitis and seen by his primary care physician today. Patient denies recent use of alcohol, fever and chills, urinary symptoms, diarrhea and constipation, nausea and vomiting. Patient complaining of anorexia. Allergies and Home Medications Allergies Coded Allergies: No Known Drug Allergies (Unverified , 04/05/12) Patient Home Medication List Home Medication List Reviewed: Yes Albuterol Sulfate (Ventolin Hfa) 8.5 Gm Hfa.aer.ad, 2 PUFF IH Q6H PRN for SHORTNESS OF BREATH, (Reported) Entered as Reported by: ANDREW MODI on 01/06/16 0844 Calcium Polycarbophil (Fiber) 625 Mg Tablet, 625 MG PO HS, (Reported) Entered as Reported by: ANDREW MODI on 01/06/16 0844 Ciprofloxacin HCl (Cipro) 500 Mg Tablet, 500 MG PO BID Prescribed by: PEDRO SCRUGGS on 07/15/16 1111 Cyclobenzaprine HCl (Cyclobenzaprine HCl) 10 Mg Tablet, 10 MG PO BID, (Reported) Entered as Reported by: ANDREW MODI on 01/06/16 0844 Diclofenac Sodium (Diclofenac Sodium) 75 Mg Tablet.dr, 75 MG PO BID, (Reported) Entered as Reported by: ANDREW MODI on 01/06/16 0844 Dicyclomine HCl (Bentyl) 20 Mg Tablet, 20 MG PO QID PRN for PAIN Prescribed by: ARCHANA OLIVAREZ on 06/23/16 2122 Famotidine (Pepcid) 20 Mg Tablet, 20 MG PO BID Prescribed by: TANK MASON on 07/24/17 1305 Fluoxetine HCl (Prozac) 10 Mg Capsule, 10 MG PO DAILY, (Reported) Entered as Reported by: ANDREW MODI on 01/06/16 0844 Hctz/Lisinopril (Lisinopril-Hctz 20-25MG Tab) 1 Tab Tablet, 1 TAB PO DAILY, (Reported) Entered as Reported by: DEANN EARLY on 08/12/14 1457 Hydrocodone Bit/Acetaminophen (Lortab 7.5 Mg Tablet) 1 Each Tablet, 1 TAB PO Q6H PRN for PAIN, (Reported) Entered as Reported by: ANDREW MODI on 01/06/16 0847 Hyoscyamine Sulfate (Hyoscyamine Sulfate) 0.125 Mg Tab.subl, 0.125 MG SL Q6H PRN for SPASMS Prescribed by: TANK MASON on 07/24/17 1305 Lorazepam (Lorazepam) 0.5 Mg Tablet, 0.5 MG PO HS, (Reported) Entered as Reported by: ANDREW MODI on 01/06/16 0844 Lorazepam (Lorazepam) 1 Mg Tablet, 1 MG PO HS PRN for INSOMNIA Prescribed by: MEIR ROSAS on 05/10/19 1258 Metoclopramide HCl (Reglan) 5 Mg Tablet, 5 MG PO TID Prescribed by: MEIR ROSAS on 05/10/19 1258 Montelukast Sodium (Montelukast Sodium) 10 Mg Tablet, 10 MG PO HS, (Reported) Entered as Reported by: ANDREW MODI on 08/13/14 0833 Naproxen (Naprosyn) 500 Mg Tablet, 500 MG PO BID PRN for pain Prescribed by: Tasha reina on 08/29/22 1651 [place] 3 Polyunsat Fatty Acids (Fish Oil 1,000 mg Capsule) 1,000 Mg Cap, 1,000 MG PO DAILY, (Reported) Entered as Reported by: ANDREW MODI on 01/06/16 0844 [place] 3 Polyunsat Fatty Acids (Fish Oil 1,000 mg Capsule) 1,000 Mg Cap, 2,000 MG PO HS, (Reported) Entered as Reported by: ANDREW MODI on 01/06/16 0844 Ondansetron (Ondansetron Odt) 4 Mg Tab.rapdis, 4 MG PO Q6H PRN for NAUSEA/VOMITING-1ST LINE Prescribed by: VINITA MARCOS on 01/20/22 1917 Ondansetron (Ondansetron Odt) 4 Mg Tab.rapdis, 4 MG PO TID PRN for NAUSEA-1ST LINE Prescribed by: Tasha reina on 08/29/22 1651 Ondansetron HCl (Zofran) 4 Mg Tab, 4 MG PO Q6H PRN for NAUSEA/VOMITING Prescribed by: PEDRO SCRUGGS on 07/15/16 1111 Pantoprazole Sodium (Pantoprazole Sodium) 40 Mg Tablet.dr, 40 MG PO DAILY, (Reported) Entered as Reported by: DEANN EARLY on 08/12/14 1457 Polyethylene Glycol 3350 (Miralax) 17 Gm Powd.pack, 17 GM PO DAILY PRN for CONSTIPATION, (Reported) Entered as Reported by: ANDREW MODI on 01/06/16 0844 Sucralfate (Carafate) 1 Gm Tablet, 1 GM PO BID, (Reported) Entered as Reported by: ANDREW MODI on 01/06/16 0844 Review of Systems Review of Systems Constitutional: see HPI EENTM: See HPI Respiratory: See HPI Cardiovascular: See HPI Gastrointestinal: See HPI Genitourinary: See HPI Musculoskeletal: see HPI Skin: see HPI Psychiatric/Neurological: See HPI Endocrine: See HPI Hematologic/Lymphatic: See HPI All Other Systems Reviewed Negative Unless Noted: Yes Past Wjvjwxp-Rigddt-Kisinm Hx Patient Social History Tobacco Use?: Yes Tobacco type used: Cigarettes Smoking Status: Current Everyday Smoker Use of E-Cig and/or Vaping dev: No Substance use?: No Alcohol Use?: No Pt feels they are or have been: No Immunizations Up To Date Tetanus Booster (TDap): Less than 5yrs PED Vaccines UTD: Yes Seasonal Allergies Seasonal Allergies: Yes Past Medical History Surgery/Hospitalization HX: DM, HTN, Asthma, CHF, HERNIA, Surgeries: No Respiratory: Yes Asthma, COPD Cardiac: Yes Hypertension Neurological: No Reproductive Disorders: No Sexually Transmitted Disease: No HIV/AIDS: No Gastrointestinal: Yes Gastroesophageal Reflux, Pancreatitis Musculoskeletal: No Endocrine: No Loss of Vision: Denies Hearing Impairment: Denies Cancer: No Psychosocial: No Anxiety, Depression Integumentary: No Blood Disorders: No Adverse Reaction/Blood Tranf: No Family Medical History Alzheimer's disease Arthritis Asthma Cataracts Completed stroke Coronary thrombosis Diabetes mellitus Drug abuse Headache disorder Hypertension Myocardial infarction Seizure disorder Severe allergy No Family History of: AIDS Abdominal aortic aneurysm Van Vleck's disease Alcoholism Aphasia Cancer of mouth Cardiovascular disease Colon cancer Congenital disease Congenital heart disease Cystic fibrosis Deafness or hearing loss Dementia Dysphasia Fibrocystic disease of breast Gastroenteritis Glaucoma Hypercholesterolemia Infertility Kidney disease Neoplasm Not obtainable due to adoption Osteoporosis Parkinson's disease Prostate cancer Psychosocial problem Respiratory disorder Thyroid disease Tuberculosis Visual disorder No Pertinent Family Hx Physical Exam Vital Signs Vital Signs - First Documented 08/29/22 14:45 Temp 36.2 Pulse 81 Resp 16 B/P (MAP) 151/86 (107) Pulse Ox 98 O2 Delivery Room Air Capillary Refill : Less Than 3 Seconds Height/Weight/BMI Height: 6'0" Weight: 291lbs. 0.0oz. 131.239408zl; 41.00 BMI Method:Stated General Appearance: WD/WN, mild distress, obese HEENT: PERRL/EOMI, normal ENT inspection, pharynx normal Neck: non-tender, full range of motion, supple, normal inspection Respiratory: chest non-tender, lungs clear, normal breath sounds, no respiratory distress, no accessory muscle use Cardiovascular: regular rate, rhythm, no edema, no gallop Gastrointestinal: normal bowel sounds, soft, no organomegaly, no pulsatile mass, guarding (Epigastric) Extremities: normal range of motion, non-tender, normal inspection Back: normal inspection Neurologic/Psychiatric: no motor/sensory deficits Skin: normal color Progress/Results/Core Measures Results/Orders Lab Results Laboratory Tests Test 08/29/22 15:16 08/29/22 15:20 Range/Units White Blood Count 13.9 H 4.3-11.0 10^3/uL Red Blood Count 5.68 H 4.30-5.52 10^6/uL Hemoglobin 16.4 13.3-17.7 g/dL Hematocrit 47 40-54 % Mean Corpuscular Volume 83 80-99 fL Mean Corpuscular Hemoglobin 29 25-34 pg Mean Corpuscular Hemoglobin Concent 35 32-36 g/dL Red Cell Distribution Width 12.9 10.0-14.5 % Platelet Count 380 130-400 10^3/uL Mean Platelet Volume 9.4 9.0-12.2 fL Immature Granulocyte % (Auto) 0 % Neutrophils (%) (Auto) 62 42-75 % Lymphocytes (%) (Auto) 28 12-44 % Monocytes (%) (Auto) 8 0-12 % Eosinophils (%) (Auto) 2 0-10 % Basophils (%) (Auto) 1 0-10 % Neutrophils # (Auto) 8.6 H 1.8-7.8 10^3/uL Lymphocytes # (Auto) 3.9 1.0-4.0 10^3/uL Monocytes # (Auto) 1.1 H 0.0-1.0 10^3/uL Eosinophils # (Auto) 0.3 0.0-0.3 10^3/uL Basophils # (Auto) 0.1 0.0-0.1 10^3/uL Immature Granulocyte # (Auto) 0.1 0.0-0.1 10^3/uL Sodium Level 136 135-145 MMOL/L Potassium Level 4.3 3.6-5.0 MMOL/L Chloride Level 97 L 98-107 MMOL/L Carbon Dioxide Level 30 21-32 MMOL/L Anion Gap 9 5-14 MMOL/L Blood Urea Nitrogen 9 7-18 MG/DL Creatinine 0.70 0.60-1.30 MG/DL Estimat Glomerular Filtration Rate 114 BUN/Creatinine Ratio 13 Glucose Level 150 H 70-105 MG/DL Calcium Level 10.0 8.5-10.1 MG/DL Corrected Calcium 9.7 8.5-10.1 MG/DL Total Bilirubin 0.4 0.1-1.0 MG/DL Aspartate Amino Transf (AST/SGOT) 18 5-34 U/L Alanine Aminotransferase (ALT/SGPT) 22 0-55 U/L Alkaline Phosphatase 87 40-136 U/L Troponin I < 0.30 <0.30 NG/ML Pro-B-Type Natriuretic Peptide 9.1 <125.0 PG/ML Total Protein 8.0 6.4-8.2 GM/DL Albumin 4.4 3.2-4.5 GM/DL Lipase 210 H 8-78 U/L Urine Color YELLOW Urine Clarity CLEAR Urine pH 7.0 5-9 Urine Specific [place] 1.010 L 1.016-1.022 Urine Protein NEGATIVE NEGATIVE Urine Glucose (UA) TRACE H NEGATIVE Urine Ketones NEGATIVE NEGATIVE Urine Nitrite NEGATIVE NEGATIVE Urine Bilirubin NEGATIVE NEGATIVE Urine Urobilinogen 0.2 < = 1.0 MG/DL Urine Leukocyte Esterase NEGATIVE NEGATIVE Urine RBC (Auto) TRACE-I H NEGATIVE Urine RBC RARE /HPF Urine WBC NONE /HPF Urine Squamous Epithelial Cells NONE /HPF Urine Crystals NONE /LPF Urine Bacteria NEGATIVE /HPF Urine Casts NONE /LPF Urine Mucus NEGATIVE /LPF Urine Culture Indicated NO My Orders Orders - TASHA REINA MD Comprehensive Metabolic Panel (08/29/22 14:57) Lipase (08/29/22 14:57) Ua Culture If Indicated (08/29/22 14:57) Ed Iv/Invasive Line Start (08/29/22 14:57) Cbc With Automated Diff (08/29/22 14:57) Troponin I Fs (08/29/22 14:57) Probnp Fs (08/29/22 14:57) Fentanyl Inj (Sublimaze Injection) (08/29/22 16:00) Ondansetron Injection (Zofran Injectio (08/29/22 16:00) Medications Given in ED Current Medications Medications Dose Ordered Sig/Tyler Route Start Time Stop Time Status Last Admin Dose Admin Fentanyl Citrate 50 mcg ONCE ONCE IVP 08/29/22 16:00 08/29/22 16:01 DC 08/29/22 15:58 50 MCG Ondansetron HCl 4 mg ONCE ONCE IVP 08/29/22 16:00 08/29/22 16:01 DC 08/29/22 15:57 4 MG Vital Signs/I&O 08/29/22 08/29/22 14:45 16:36 Temp 36.2 36.2 Pulse 81 73 Resp 16 16 B/P (MAP) 151/86 (107) 136/88 Pulse Ox 98 98 O2 Delivery Room Air Room Air Blood Pressure Mean: 107 Progress Progress Note : Progress Note 46-year-old male patient with history of episode of pancreatitis sent from PCP office with concern for acute pancreatitis after having epigastric pain for 3 days. Patient had guarding of epigastric area with a stable vital sign. Patient had mild elevation of white count at 13.9 and lipase of 210. Patient treated with fentanyl and Zofran and felt better. Because of mild elevation of lipase plan to discharge patient home with outpatient treatment. Patient advised to take liquid diet for the next 48 hours and follow-up with primary care physician in 3 days. Patient advised to avoid of drinking alcohol. Patient informed about test result and plan of care and needs for follow-up and all questions was addressed. Departure Impression Primary Impression: Recurrent pancreatitis Disposition: 01 HOME, SELF-CARE Condition: Improved Departure-Patient Inst. Decision time for Depature: 16:49 Referrals: ANDREW METZGER APRN (PCP) Primary Care Physician [facility] (Family) Primary Care Physician Patient Instructions: Pancreatitis (DC) Add. Discharge Instructions: No solid food for the next 48 hours, take only liquid diet Follow-up with your primary care physician in 3 days or return to ER if not getting better All discharge instructions reviewed with patient and/or family. Voiced understanding. Scripts Naproxen (Naprosyn) 500 Mg Tablet 500 MG PO BID PRN for pain, #14 TAB Prov: TASHA REINA MD 08/29/22 Ondansetron (Ondansetron Odt) 4 Mg Tab.rapdis 4 MG PO TID PRN for NAUSEA-1ST LINE, #10 TAB Prov: TASHA REINA MD 08/29/22 TASHA REINA MD Aug 29, 2022 15:15
[2022-08-29 15:22] LABS: BASOPHILS # (AUTO) 0.1 10^3/uL (0.0-0.1); BASOPHILS % (AUTO) 1 % (0-10); EOSINOPHILS # (AUTO) 0.3 10^3/uL (0.0-0.3); EOSINOPHILS % (AUTO) 2 % (0-10); HEMATOCRIT 47 % (40-54); HEMOGLOBIN 16.4 g/dL (13.3-17.7); LYMPHOCYTES # (AUTO) 3.9 10^3/uL (1.0-4.0); LYMPHOCYTES % (AUTO) 28 % (12-44); MEAN CORPUSCULAR HEMOGLOBIN 29 pg (25-34); MEAN CORPUSCULAR HGB CONC 35 g/dL (32-36); MEAN CORPUSCULAR VOLUME 83 fL (80-99); MEAN PLATELET VOLUME 9.4 fL (9.0-12.2); MONOCYTES # (AUTO) 1.1 10^3/uL (0.0-1.0); MONOCYTES % (AUTO) 8 % (0-12); NEUTROPHILS # (AUTO) 8.6 10^3/uL (1.8-7.8); NEUTROPHILS % (AUTO) 62 % (42-75); PLATELET COUNT 380 10^3/uL (130-400); WHITE BLOOD COUNT 13.9 10^3/uL (4.3-11.0)
[2022-08-29 15:24] LABS: BILIRUBIN,URINE NEGATIVE (NEGATIVE); CLARITY,URINE CLEAR; COLOR,URINE YELLOW; GLUCOSE, URINE (UA) TRACE (NEGATIVE); KETONES,URINE NEGATIVE (NEGATIVE); LEUKOCYTE ESTERASE ,URINE NEGATIVE (NEGATIVE); NITRITE,URINE NEGATIVE (NEGATIVE); PROTEIN,URINE NEGATIVE (NEGATIVE)
[2022-08-29 15:31] LABS: BACTERIA,URINE NEGATIVE /HPF; RBC,URINE RARE /HPF
[2022-08-29 15:59] LABS: CREATININE SERUM 0.7 MG/DL (0.60-1.30); POTASSIUM 4.3 MMOL/L (3.6-5.0)
[2022-08-29 16:00] LABS: ALBUMIN 4.4 GM/DL (3.2-4.5); BILIRUBIN,TOTAL 0.4 MG/DL (0.1-1.0)
[2022-08-29] MEDS ORDERED: ONDANSETRON 4 MG/2 ML (SDV) Z0FRAN IVP ONE (16:00)
[2022-08-29] MEDS ORDERED: fentaNYL INJ 100 MCG/2 ML AMP IVP ONE (16:00)
[2022-08-29 16:36] VITALS: BP 136/88
[2022-08-29] MEDS ORDERED: ONDA4TAB11 PO (16:51)
[2022-08-29] MEDS ORDERED: NAPR-1071 PO (16:51)
== END 2022-08-29 16:52 | disposition home or self-care (01) ==
LOC: EDUNIT# 14:23 → ER FS 14:24
DX: K86.1 Other chronic pancreatitis (principal); E66.9 Obesity, unspecified; F17.210 Nicotine dependence, cigarettes, uncomplicated; Z68.41 Body mass index [BMI] 40.0-44.9, adult; Z28.310 Unvaccinated for COVID-19
CPT/HCPCS: 36415; 80053; 81000; 83690; 83880; 84484; 85025; 99282

== ENCOUNTER 2022-10-12 06:24 | Outpatient (CLI) | payer MEDICAID ==
[~2022-10-12] VITALS: Ht 180.3 cm; Wt 133.8 kg
[~2022-10-12 06:24] MED LIST changes: +NAPR-1071 PO
[2022-10-12] MEDS ORDERED: BUSP10TA95 PO (16:11)
[2022-10-12] MEDS ORDERED: OMEP40CA6 PO (16:11)
[2022-10-12] MEDS ORDERED: INSU100I76 SQ (16:11)
[2022-10-12] MEDS ORDERED: BUDE10.2 IH (16:11)
[2022-10-12] MEDS ORDERED: PREG100C55 PO (16:11)
[2022-10-12] MEDS ORDERED: ATOR20TA66 PO (16:11)
[2022-10-12] MEDS ORDERED: METF-865 PO (16:11)
[2022-10-12] MEDS ORDERED: LISI10TA25 PO (16:11)
[2022-10-12] MEDS ORDERED: DIVA-74 PO (16:11)
== END 2022-10-12 16:12 ==
LOC: PREOP 06:24
PROVIDERS: ATTEND Surgery
DX: Z01.818 Encounter for other preprocedural examination (principal)

== ENCOUNTER → 2022-11-03 | Outpatient (CLI) | payer MEDICAID ==
[~2022-11-03] MED LIST changes: +ATOR20TA66 PO; +BUDE10.2 IH; +BUSP10TA95 PO; +CATHETER FLUSH 10 ML SYR IVP PRN; +DIVA-74 PO; +INSU100I76 SQ; +LISI10TA25 PO; +METF-865 PO; +OMEP40CA6 PO; +PREG100C55 PO
--- NOTE | 2022-11-03 14:11 | Diagnostic Imaging Report ---
Indication: Epigastric pain. Patient was administered 5.4 mCi technetium 99m Choletec intravenously and imaging over the abdomen was performed. At 45 minutes, the patient ingested 8 ounces of Ensure and the gallbladder ejection fraction was calculated. There is homogeneous uptake of activity by the liver with prompt excretion of activity into the gallbladder and common duct. There is normal passage of activity into the small bowel. There does appear to be some gastric bile reflux present. The gallbladder ejection fraction is abnormally low at 12.5% (normal values are 35% or greater). IMPRESSION: 1. Patent cystic duct and common bile duct. 2. Mild gastric bile reflux. 3. Low gallbladder ejection fraction of 12.5%. Dictated by: Dictated on workstation # [id number]
== END ==
LOC: CARD 11:26
PROVIDERS: ATTEND Surgery
DX: K21.9 Gastro-esophageal reflux disease without esophagitis (principal)
CPT/HCPCS: 78227; A9537

== ENCOUNTER 2022-11-14 07:38 | Day surgery (SDC) | payer MEDICAID ==
[~2022-11-14] VITALS: Ht 180.3 cm; Wt 133.8 kg
[~2022-11-14 07:38] MED LIST changes: -CATHETER FLUSH 10 ML SYR IVP PRN
[2022-11-14] MEDS ORDERED: LACTATED RINGERS 1,000 ML IV STA (07:40)
[2022-11-14] MEDS ORDERED: HURRICAINE EXT TUBE (BENZOCAINE) XX PRN (07:45)
[2022-11-14 07:50] VITALS: BP 115/64
[2022-11-14] MEDS ORDERED: PROPOFOL INJECTION 50 ML IV ONE (08:16)
[2022-11-14] MEDS ORDERED: MIDAZOLAM 2 MG/2 ML (VERSED) VIAL ONE (08:16)
[2022-11-14 08:40] VITALS: BP 124/62
--- NOTE | 2022-11-14 08:42 | Endoscopy Discharge Instruct ---
Endo Procedure/Findings Findings 1.: Gastritis 2.: Hiatal Hernia 3.: Other Findings (retained food) Discharge Instructions - Activity: You might feel a little sleepy until tomorrow. This is due to the medicine you received to relax you. Until tomorrow, you should: NOT drive a car, operate machinery or power tools. NOT drink any alcoholic beverages. NOT make any important decisions or sign importortant papers. Do not return to work until tomorrow, unless otherwise instructed. Resume previous activities tomorrow. Diet: Start by taking liquids. If you tolerate liquids, advance to solid food. 1.: EGD in 3 years Notify Physician - If you experience excessive bleeding, unusual abdominal pain, fever, or chest pain, contact your doctor immediately. CYRUS LINDO DO Nov 14, 2022 08:42
--- NOTE | 2022-11-14 08:42 | Progress Note-Post Operative ---
Post-Operative Progess Note Surgeon (s)/Engineering Faculty (s) Surgeon CYRUS LINDO DO Engineering Faculty: none Pre-Operative Diagnosis Epigastric pain, hx of gastric ulcers Post-Operative Diagnosis Gastritis Hiatal hernia - small Retained food - r/o Gastroparesis Procedure & Operative Findings Date of Procedure 11/14/22 Procedure Performed/Findings EGD with biopsy PROCEDURE NOTE: After informed consent was obtained, the patient was brought to the endoscopy suite, placed in bed in left lateral decubitus position. He was administered IV sedation by the CREDIT PROFESSIONAL who then monitored vitals the entire time, heart rate, blood pressure and pulse ox and the scope was inserted down the mouth through the esophagus into the stomach. On the way down, noted some mild esophagitis, took a picture, pushed into the stomach and immediately encountered a large amount of retained food; took a picture. Pushed past the antrum into the duodenum; duodenum looked good. Pulled back and did a biopsy of the antrum, then retroflexed the scope, saw a small hiatal hernia and took a picture of this. Next, pulled the scope into the GE junction and then did a biopsy of the GE junction. Pushed the scope back into the stomach, suctioned all the air out of the stomach. At this point pulled the scope up the esophagus and out the mouth. The patient tolerated the procedure, and he recovered in endoscopy suite. Anesthesia Type IV sedation by CREDIT PROFESSIONAL Estimated Blood Loss Estimated blood loss (mL): scant Specimens/Packing Specimens Removed antral bx GE jxn bx CYRUS LINDO DO Nov 14, 2022 08:42
[2022-11-14 08:45] VITALS: BP 123/57
[2022-11-14 08:50] VITALS: BP 115/59
[2022-11-14 09:05] VITALS: BP 115/59
[2022-11-14 09:13] VITALS: BP 115/68
--- NOTE | 2022-11-14 12:10 | Anesthesia-General Post-Op ---
MAC Patient Condition Mental Status/LOC: Same as Preop Cardiovascular: Satisfactory Nausea/Vomiting: Absent Respiratory: Satisfactory Pain: Controlled Complications: Absent Post Op Complications Complications None Follow Up Care/Instructions Patient Instructions None needed. Anesthesiology Discharge Order Discharge Order Patient is doing well, no complaints, stable vital signs, no apparent adverse anesthesia problems. No complications reported per nursing. WILFREDO AGUILERA CRNA Nov 14, 2022 12:10
== END 2022-11-14 09:18 | disposition home or self-care (01) ==
LOC: ENDO 07:38
PROVIDERS: ATTEND Surgery
DX: K29.70 Gastritis, unspecified, without bleeding (principal); K21.00 Gastro-esophageal reflux disease with esophagitis, without bleeding; K44.9 Diaphragmatic hernia without obstruction or gangrene; K31.89 Other diseases of stomach and duodenum; K25.9 Gastric ulcer, unspecified as acute or chronic, without hemorrhage or perforation; E11.9 Type 2 diabetes mellitus without complications; F17.210 Nicotine dependence, cigarettes, uncomplicated; Z87.11 Personal history of peptic ulcer disease; E66.01 Morbid (severe) obesity due to excess calories; Z79.4 Long term (current) use of insulin; Z79.84 Long term (current) use of oral hypoglycemic drugs; Z68.41 Body mass index [BMI] 40.0-44.9, adult; Z28.310 Unvaccinated for COVID-19
CPT/HCPCS: 82947

== ENCOUNTER 2022-12-05 08:38 | Outpatient (CLI) | payer MEDICAID ==
[~2022-12-05] VITALS: Ht 180.3 cm; Wt 133.8 kg
[2022-12-05] MEDS ORDERED: GLUC1AUT2 SQ (14:35)
== END 2022-12-05 15:44 | disposition home or self-care (01) ==
LOC: PREOP 08:38
PROVIDERS: ATTEND Surgery
DX: Z01.818 Encounter for other preprocedural examination (principal)

== ENCOUNTER 2022-12-14 09:19 | Day surgery (SDC) | payer MEDICAID ==
[~2022-12-14] VITALS: Ht 180 cm; Wt 133.8 kg
[2022-12-14] VITALS (10 sets, daily range): BP systolic 100–132; BP diastolic 60–92
[~2022-12-14 09:19] MED LIST changes: +GLUC1AUT2 SQ
--- NOTE | 2022-12-14 09:28 | Progress Note-Pre Operative ---
Pre-Operative Progress Note Date of Available H&P: Nov 29, 2022 Date H&P Reviewed: Dec 14, 2022 Time H&P Reviewed: 09:28 History & Physical: H&P Reviewed, Patient Examed, No changes noted Pre-Operative Diagnosis: Biliary Dyskinesia CYRUS LINDO DO Dec 14, 2022 09:28
[2022-12-14] MEDS ORDERED: LACTATED RINGERS 1,000 ML IV PRN (09:30)
[2022-12-14] MEDS ORDERED: ceFAZolin INJECTION 3,000 MG in NS (IVPB) 100 ML IV ONE (09:30)
[2022-12-14] MEDS ORDERED: GLYCOPYRROLATE 0.2 MG/ML (ROBINUL) 2 ML VIAL ONE (10:11)
[2022-12-14] MEDS ORDERED: ROCURONIUM 50 MG/5 ML (ZEMURON) VIAL IV ONE (10:11)
[2022-12-14] MEDS ORDERED: fentaNYL INJ 100 MCG/2 ML AMP ONE (10:11)
[2022-12-14] MEDS ORDERED: MIDAZOLAM 2 MG/2 ML (VERSED) VIAL ONE (10:11)
[2022-12-14] MEDS ORDERED: ONDANSETRON 4 MG/2 ML (SDV) Z0FRAN ONE (10:11)
[2022-12-14] MEDS ORDERED: LIDOCAINE PF 2% 5 ML (XYLOCAINE) VIAL ONE (10:11)
[2022-12-14] MEDS ORDERED: NEOSTIGMINE (BLOXIVERZ ) 1 MG/1ML 10 ML VIAL ONE (10:11)
[2022-12-14] MEDS ORDERED: proPOfol 200 MG/20 ML (DIPRIVAN) VIAL IV ONE ×2 (10:11→11:00)
[2022-12-14] MEDS ORDERED: BUP/EPI 0.5% 1:200,000 (SENSORCAINE) 30 ML VIAL ONE (10:24)
[2022-12-14] MEDS ORDERED: BUP/EPI 0.5% 1:200,000 (SENSORCAINE) 30 ML VIAL INJ ONE (10:57)
[2022-12-14] MEDS ORDERED: IOHEXOL 300 MG/ML 30 ML (OMNIPAQUE 300) VIAL INJ ONE (10:58)
--- NOTE | 2022-12-14 11:31 | Progress Note-Post Operative ---
Post-Operative Progess Note Surgeon (s)/Environmental Studies Faculty Member (s) Surgeon CYRUS LINDO DO Environmental Studies Faculty Member: Shreyas Pre-Operative Diagnosis Biliary Dyskinesia Post-Operative Diagnosis same Procedure & Operative Findings Date of Procedure 12/14/22 Procedure Performed/Findings PROCEDURE: Laparoscopic cholecystectomy with intraoperative cholangiogram. COMPLICATIONS: None. PROCEDURE: The patient was taken to the operating suite and was prepped and draped in sterile fashion. A surgical pause was performed. Just superior to the umbilicus, a 12 mm incision was made. Dissection was taken down to the fascia, which was then scored and grasped with a Darrian and the abdomen was then entered. A 0 Vicryl suture was placed in a [id number] fashion and a Nguyen trocar was placed and secured. Pneumoperitoneum was achieved. A 5mm trochar place in the subxyphoid an d 2 in the right upper quadrant. The gallbladder was then grasped and elevated. The cystic duct, and cystic artery were then dissected out. Clip was placed on the distal portion of the cystic duct which was then partially transected. An arrow catheter was inserted into the duct. The cholangiogram was then performed. No filling defects and contrast made its way into the duodenum. Catheter removed. Clips were placed on proximal portion of the cystic duct and then the duct was then transected. Clips were placed along the proximal and distal portion of the cystic artery which was then transected. Hook cautery was used to dissect the gallbladder from the gallbladder fossa achieving hemostasis. The gallbladder was placed in an Endobag and removed through the 12 mm trocar site. The abdomen was then reinspected. Copious amounts of irrigation were used to irrigate the abdomen and there were no signs of active bleeding. Hemostasis had been achieved. The 12 mm fascial defect was then closed with 0 Vicryl suture that had been placed in a [id number] fashion. The abdomen was then desufflated, the trocars were removed. The abdomen was then washed and dried. The skin was then closed using 4-0 Monocryl in a subcuticular fashion. The abdomen was washed and dried and Skin Affix was place over incisions. Patient tolerated the procedure well without any complications and was taken to the recovery room in stable condition. Dr. Pritchett assisted on this case helping to make incisions, close incisions, identify anatomy and hold anatomy out of the way. Anesthesia Type GET Estimated Blood Loss Estimated blood loss (mL): scant Specimens/Packing Specimens Removed GB CYRUS LINDO DO Dec 14, 2022 11:31
[2022-12-14] MEDS ORDERED: ACHYD1T PO (11:32)
--- NOTE | 2022-12-14 11:34 | Discharge Inst-Surgical ---
Discharge Inst-Surgical Depart Medication/Instructions New, Converted or Re-Newed RX: Transmitted to Pharmacy Patient Instructions Follow up Appt: Make appointment for 1 week. [phone] Instructions: No lifting greater than 20 pounds. No strenuous activity. May shower in 24 hours, no tub bath or soaking. Use incentive spirometer at home as directed. No Smoking Skin/Wound Care: May remove bandages in am. You need to leave the Dermabond on incision it will fall off on it's own. Symptoms to Report: Appetite Changes, Extremity Discoloration, Numbness/Tingling, Swelling Increased, Bleeding Excessive, Eyesight Changes, Pain Increased, Urine Color Change, Constipation(Persistent), Fever over 101 degree F, Pain/Pressure in chest, Urinating Difficulty, Cough Up/Vomit Blood, Heart Beat Irreg/Pounding, Pain/Pressure in jaw, Cramps in feet or legs, Lightheadedness, Pain/Pressure in shoulder, Diarrhea(Persistent), Memory Changes Suddenly, Questions/Concerns, Weight gain consecutive days, Dizziness/Fainting, Nausea/Vomiting, Shortness of Breath, Weight gain over 2 pounds If questions or concerns contact your physician Or seek help at emergency department. Activity Activity as Tolerated: Yes Activity Instructions: Avoid Stress to Incision Driving Instructions: No Driving/Refer to Diet Discharge Diet: Avoid Fatty Foods, Low Fat/Low Cholesterol Diet for 24 Hours: No Buckner Foods Diet After 24 Hours: Clear Liquid if Nauseous If Any Problems/Questions/Issu: Contact Your Physician, Go to Emergency Room Skin/Wound Care Infection Signs and Symptoms: Increased Redness, Foul Odor of Wound, Increased Drainage, Skin Itchy or Has a Rash, Increased Swelling, Temperature Above 101 F Wound Care Comment: heating pad to shoulder or neck tonight for pain Bathing Instructions: Shower Stitches/Stephie/Dermabond Dis: Dermabond Ice Pack: Ice On and Off Site CYRUS LINDO DO Dec 14, 2022 11:34
[2022-12-14] MEDS ORDERED: morphine INJ 10 MG/ML 1ML (SYR OR VIAL) ONE (11:39)
--- NOTE | 2022-12-14 11:52 | Anesthesia-General Post-Op ---
General Patient Condition Mental Status/LOC: Same as Preop Cardiovascular: Satisfactory Nausea/Vomiting: Absent Respiratory: Satisfactory Pain: Controlled Complications: Absent Post Op Complications Complications None Follow Up Care/Instructions Patient Instructions None needed. Anesthesia/Patient Condition Patient Condition Patient is doing well, no complaints, stable vital signs, no apparent adverse anesthesia problems. No complications reported per nursing. LARS YOUNG CRNA Dec 14, 2022 11:52
[2022-12-14] MEDS ORDERED: KETOROLAC 30 MG/ML VIAL ONE (11:54)
--- NOTE | 2022-12-14 11:54 | Diagnostic Imaging Report ---
INDICATION: Epigastric pain. COMPARISON: None Total fluoroscopy time: 7.8 seconds Total number fluoroscopic images saved: 28 FINDINGS: Multiple intraoperative digital subtraction images of the right upper abdominal quadrant were obtained during intraoperative cholangiogram. Images provided show contrast opacifying the intra and extra hepatic biliary ductal systems. No large intraluminal filling defect is seen. Contrast empties in the small bowel as expected. Please note, interpreting radiologist was not present during the procedure. IMPRESSION: 1. Fluoroscopic guidance provided during intraoperative cholangiogram as above. Dictated by: Dictated on workstation # [id number]
[2022-12-14] MEDS ORDERED: morphine INJ 10 MG/ML 1ML (SYR OR VIAL) IVP ONE (12:00)
[2022-12-14] MEDS ORDERED: ONDANSETRON 4 MG/2 ML (SDV) Z0FRAN IVP PRN (12:00)
[2022-12-14] MEDS ORDERED: HYDROmorphone 2 MG/ML VIAL (DILAUDID) IV ONE (12:00)
[2022-12-14] MEDS ORDERED: PROMETHAZINE INJ 25 MG/ML (PHENERGAN) AMP IVP ONE (12:00)
[2022-12-14] MEDS ORDERED: HYDROcodone/APAP 5 MG/325 MG (LORTAB) TAB ONE (12:49)
[2022-12-14] MEDS ORDERED: HYDROcodone/APAP 5 MG/325 MG (LORTAB) TAB PO ONE (14:15)
== END 2022-12-14 13:45 | disposition home or self-care (01) ==
LOC: SDC 09:19
PROVIDERS: ATTEND Surgery
DX: K82.8 Other specified diseases of gallbladder (principal); K81.1 Chronic cholecystitis; K21.00 Gastro-esophageal reflux disease with esophagitis, without bleeding; F17.210 Nicotine dependence, cigarettes, uncomplicated; K31.84 Gastroparesis; E66.01 Morbid (severe) obesity due to excess calories; Z68.41 Body mass index [BMI] 40.0-44.9, adult; Z28.310 Unvaccinated for COVID-19
CPT/HCPCS: 76000; 87081; 94010

== ENCOUNTER → 2023-02-11 | Outpatient (CLI) | payer MEDICAID ==
[~2023-02-11] MED LIST changes: +ACHYD1T PO
--- NOTE | 2023-02-11 19:02 | Diagnostic Imaging Report ---
CLINICAL INDICATIONS: Patient fell off ladder and has pain above patella. EXAM: X-ray of the right knee, 3 views. COMPARISON: MRI of the right knee dated 10/18/2019. FINDINGS: There is no acute fracture or dislocation. Suspected small right knee effusion. There are mildly hypertrophic spurs in the tricompartmental regions. IMPRESSION: 1: There is mild degenerative disease of the right knee with no acute fracture or dislocation. 2: Suspected small right knee effusion. Dictated by: Dictated on workstation # [id number]
== END ==
LOC: RAD FS 17:07
PROVIDERS: ATTEND Nurse Practitioner Family
DX: M17.11 Unilateral primary osteoarthritis, right knee (principal)
CPT/HCPCS: 73562